=== PATIENT | male | born 1970 | race Caucasian/White ===

== ENCOUNTER 2016-11-08 12:50 | Inpatient (IN) | payer MEDICARE, OTHER ==
--- NOTE | 2016-11-08 14:23 | HP ---
Admission ROS [facility] Allergies/Adverse Reactions: Allergies Allergy/AdvReac Type Severity Reaction Status Date / Time fish derived Allergy Mild Rash Verified 06/09/16 12:26 Penicillins Allergy Mild Rash Verified 06/09/16 12:26 shellfish derived Allergy Mild Rash Verified 06/09/16 12:26 seafood Allergy Mild Rash Uncoded 06/09/16 12:26 - Ebola screening Have you traveled outside of the country in the last 21 days: No Have you had contact with anyone from an Ebola affected area: No Do you have a fever: No Patient History - Patient Medical History Hx Anemia: No Hx Asthma: No Hx Chronic Obstructive Pulmonary Disease (COPD): No Hx Cancer: No Hx Cardiac Disorders: No Hx Congestive Heart Failure: No Hx Hypertension: No Hx Hypercholesterolemia: No Hx Pacemaker: No HX Cerebrovascular Accident: No Hx Seizures: No Hx Dementia: No Hx Diabetes: No Hx Gastrointestinal Disorders: No Hx Liver Disease: Yes (Hep B ) Hx Genitourinary Disorders: No Hx Sexually Transmitted Disorders: No Hx Renal Disease (ESRD): No Hx Thyroid Disease: No Hx Human Immunodeficiency Virus (HIV): No (negative) Hx Hepatitis C: No (BUT HEP B; not on meds) Hx Depression: No (pt denies) Hx Suicide Attempt: No (denies) Hx Bipolar Disorder: No Hx Schizophrenia: No - Patient Surgical History Past Surgical History: Yes Hx Neurologic Surgery: No Hx Cataract Extraction: No Hx Cardiac Surgery: No Hx Lung Surgery: No Hx Breast Surgery: No Hx Breast Biopsy: No Hx Abdominal Surgery: No Hx Appendectomy: No Hx Cholecystectomy: No Hx Genitourinary Surgery: No Hx Section: No Hx Orthopedic Surgery: No Other Surgical History: FIVE CYSTS REMOVED FROM TESTICLE skin ,RIGHT ARM,RIGHT LEG, AND BACK Anesthesia Reaction: No - PPD History Date: 12/17/15 Results: 0 mm - Smoking Cessation Smoking history: Former smoker Have you smoked in the past 12 months: Yes Aproximately how many cigarettes per day: 40 If you are a former smoker, when did you quit?: 9 months ago Cigars Per Day: 20 Hx Chewing Tobacco Use: No Initiated information on smoking cessation: Yes 'Breaking Loose' booklet given: 11/08/16 Family Disease History - Family Disease History Family Disease History: Heart Disease: Father (COCAINE), Mother (ALCOHOLISM), [place] : Brother (COLON [place]), Sister (lung ), Other: Father, Mother Screened but not Admitted - Documentation of Visit Screened but not Admitted: Yes Level of Care Recommended at this Time: ER Evaluation/Care Additional Information/Explanation: patient stated he fell yesterday,stated he has severe pain in the left foot,. swellin gwith pain and tenderness left foot, metatarsal area. with tenderness on palpation,. history ofheroin and alcohol dependence. transfer to [facility] for evaluation and treatment by [facility],. spoke with dr mona alvarado [facility] Breath Alcohol Content Breath Alcohol Content: 0
--- NOTE | 2016-11-08 21:15 | HP ---
COWS - Scale Resting Pulse: 2= [place] 101-120 Sweatin=Flushed/Facial Moisture Restless Observation: 3= Extraneous Movement Pupil Size: 0= Normal to Room Light Bone or Joint Aches: 2= Severe Diffuse Aches (LEFT FOOT) Runny Nose/ Eye Tearin= Runny Nose/Eyes GI Upset > 30mins: 2= Nausea/Diarrhea Tremor Observation: 2= Slight Tremor Visible Yawning Observation: 1= 1-2x During Session Anxiety or Irritability: 2=Irritable/Anxious Goose Flesh Skin: 0=Smooth Skin COWS Score: 18 CIWA Score - CIWA Score Nausea/Vomitin Muscle Tremors: 3 Anxiety: 4-Mod. Anxious/Guarded Agitation: 4-Moderately Restless Paroxysmal Sweats: 3 Orientation: 2-Disoriented Date<2 days Tacttile Disturbances: 0-None Auditory Disturbances: 0-None Visual Disturbances: 0-None Headache: 0-None Present CIWA-Ar Total Score: 19 Admission ROS S - HPI Chief Complaint: WITHDRAWAL SYMPTOMS Allergies/Adverse Reactions: Allergies Allergy/AdvReac Type Severity Reaction Status Date / Time fish derived Allergy Mild Rash Verified 11/08/16 21:12 Penicillins Allergy Mild Rash Verified 11/08/16 21:12 shellfish derived Allergy Mild Rash Verified 11/08/16 21:12 seafood Allergy Mild Rash Uncoded 11/08/16 21:12 History of Present Illness: 46 Y.O. MAN WITH AN EXTENSIVE HISTORY OF DRUG AND ALCOHOL DEPENDENCE IS SEEKING DETOX. HE REPORTS NOT HAVING A SIGNIFICANT PERIOD OF SOBRIETY. HE HAS COMPLETED DETOX AND REHAB HERE PREVIOUSLY. PT. RETURNS FROM [facility] AFTER BEING EVALUATED AT THEIR ER FOR LEFT FOOT PAIN. Exam Limitations: No Limitations - Ebola screening Have you traveled outside of the country in the last 21 days: No Have you had contact with anyone from an Ebola affected area: No Have you been sick,other than usual withdrawal symptoms: No Do you have a fever: No - Review of Systems Constitutional: Fever, Loss of Appetite, Malaise, Night Sweats, Changes in sleep , Unintentional Wgt. Loss EENT: reports: Nose Congestion Respiratory: reports: Cough, Shortness of Breath Cardiac: reports: No Symptoms Reported (DENIES CHEST PAIN, PALPITATIONS, CHEST TIGHTNESS) GI: reports: Diarrhea, Nausea, Poor Appetite : reports: Frequency Musculoskeletal: reports: Muscle Weakness, Other (LEFT FOOT PAIN; EVALUATED AT [facility] ER.) Integumentary: reports: Other (PT. HAS SCABS TO THE LEFT SIDE AND BACK OF HIS HEAD. ALSO HAS AN ABRASION TO THE LEFT INDEX FINGER.) Neuro: reports: Tremors Endocrine: reports: No Symptoms Reported Hematology: reports: Anemia Psychiatric: reports: Anxious Other Systems: Reviewed and Negative Patient History - Patient Medical History Hx Anemia: No Hx Asthma: No Hx Chronic Obstructive Pulmonary Disease (COPD): Yes Hx Cancer: No Hx Cardiac Disorders: No Hx Congestive Heart Failure: No Hx Hypertension: No Hx Hypercholesterolemia: No Hx Pacemaker: No HX Cerebrovascular Accident: No Hx Seizures: No Hx Dementia: No Hx Diabetes: No Hx Gastrointestinal Disorders: Yes (HAS A COLOSTOMY BAG ) Hx Liver Disease: Yes (Hep B) Hx Genitourinary Disorders: No Hx Sexually Transmitted Disorders: No Hx Renal Disease (ESRD): No Hx Thyroid Disease: No Hx Human Immunodeficiency Virus (HIV): No (negative) Hx Hepatitis C: No (BUT HEP B; not on meds) Hx Depression: No (pt denies) Hx Suicide Attempt: No (denies) Hx Bipolar Disorder: No Hx Schizophrenia: No - Patient Surgical History Past Surgical History: Yes Hx Neurologic Surgery: No Hx Cataract Extraction: No Hx Cardiac Surgery: No Hx Lung Surgery: No Hx Breast Surgery: No Hx Breast Biopsy: No Hx Abdominal Surgery: Yes (GI DISORDER; COLOSTOMY-06/28/16) Hx Appendectomy: No Hx Cholecystectomy: No Hx Genitourinary Surgery: No Hx Section: No Hx Orthopedic Surgery: No Other Surgical History: FIVE CYSTS REMOVED FROM TESTICLE skin ,RIGHT ARM,RIGHT LEG, AND BACK Anesthesia Reaction: No - PPD History Previous Implant?: Yes Documented Results: Negative w/proof Implanted On Prior [facility] Admission?: Yes Date: 12/17/15 Results: 0 mm PPD to be Administered?: No - Reproductive History Patient is a Female of Child Bearing Age (11 -55 yrs old): No - Smoking Cessation Smoking history: Current every day smoker Have you smoked in the past 12 months: Yes Aproximately how many cigarettes per day: 20 Hx Chewing Tobacco Use: No Initiated information on smoking cessation: Yes 'Breaking Loose' booklet given: 11/08/16 - Substance & Tx. History Hx Alcohol Use: Yes Hx Substance Use: Yes Substance Use Type: Alcohol, Heroin Hx Substance Use Treatment: Yes (DETOX AND REHAB) - Substances Abused Alcohol Route: Oral Frequency: Daily Amount used: 1 PINT OF LIQUOR; 6 PACK OF BEER Age of first use: 34 Date of Last Use: 11/07/16 Heroin Route: Inhalation Frequency: Daily Amount used: 10-20 Age of first use: 34 Date of Last Use: 11/07/16 Family Disease History - Family Disease History Family Disease History: Heart Disease: Father (COCAINE), Mother (ALCOHOLISM), [place] : Brother (COLON [place]), Sister (lung ), Other: Father, Mother Admission Physical Exam [facility] - Vital Signs Vital Signs: Vital Signs - 24 hr 11/08/16 14:16 Temperature 97.5 F L Pulse Rate 122 H Respiratory 20 Rate Blood Pressure 158/98 - Physical General Appearance: Yes: Disheveled, Tremorous, Irritable, Sweating, Anxious HEENTM: Yes: Nasal Congestion Respiratory: Yes: Chest Non-Tender, Lungs Clear, Normal Breath Sounds, No Respiratory Distress, No Accessory Muscle Use Neck: Yes: No masses,lesions,Nodules, Trachea in good position Breast: Yes: Breast Exam Deferred Cardiology: Yes: S1, S2, Tachycardia Abdominal: Yes: Surgical Scar (MIDLINE ABDOMINAL), Other (COLOSTOMY) Genitourinary: Yes: Other (NO COMPLAINT REPORTED) Back: Yes: Normal Inspection Musculoskeletal: Yes: Other (TENDERNESS TO LEFT FOOT) Extremities: Yes: Tremors Neurological: Yes: Alert Integumentary: Yes: Diaphoresis, Other (WOUND TO LEFT INDEX FINGER-PRESCRIBED CLEOCIN IN THE ER. SCABS TO THE LEFT LATERAL AND BACKSIDE OF THE HEAD.) Lymphatic: Yes: Within Normal Limits - Diagnostic (1) Alcohol dependence with uncomplicated withdrawal Current Visit: Yes Status: Chronic (2) Opioid dependence with withdrawal Current Visit: Yes Status: Chronic (3) Nicotine dependence Current Visit: Yes Status: Chronic Qualifiers: Nicotine product type: cigarettes Substance use status: uncomplicated Qualified Code(s): F17.210 - Nicotine dependence, cigarettes, uncomplicated (4) Presence of colostomy Current Visit: Yes Status: Chronic Cleared for Admission [facility] - Detox or Rehab [facility] Level of Care: Medically Managed Detox Regimen/Protocol: Methadone/Librium S Breath Alcohol Content Breath Alcohol Content: 0 Urine Drug Screen - Results Drug Screen Negative: No Urine Drug Screen Results: THC-Marijuana, OPI-Opiates, OXY-Oxycodone
[2016-11-08 21:32] VITALS: BMI 24.5
[2016-11-08] MEDS ORDERED: METHADONE HCL 10 MG TABLET (FOR DETOX USE ONLY) PO ONE ×2 (21:43→23:00)
[2016-11-08] MEDS ORDERED: P-EPHED 60MG/TRIPROLIDI 2.5MG TABLET PO PRN (21:43)
[2016-11-08] MEDS ORDERED: chlordiazePOXIDE HCL 25 MG CAPSULE PO ONE (21:43)
[2016-11-08] MEDS ORDERED: MAGNESIUM HYDROX 2400MG/30ML ORAL SUSPENSION 30 ML CUP PO PRN (21:43)
[2016-11-08] MEDS ORDERED: NICOTINE POLACRILEX 2 MG GUM BC PRN (21:43)
[2016-11-08] MEDS ORDERED: MAG HYDROX/AL HYDROX/SIMETH 30 ML UNIT-DOSE CUP PO PRN (21:43)
[2016-11-08] MEDS ORDERED: MAGNESIUM CITRATE 300 ML BOTTLE PO PRN (21:43)
[2016-11-08] MEDS ORDERED: guaiFENesin/D-METHORPHAN HB 10 ML UNIT-DOSE CUPS PO PRN (21:43)
[2016-11-08] MEDS ORDERED: MENTHOL/PHENOL 1 EACH UD MM PRN (21:43)
[2016-11-08] MEDS ORDERED: chlordiazePOXIDE HCL 25 MG CAPSULE PO PRN (21:43)
[2016-11-08] MEDS ORDERED: ACETAMINOPHEN 325 MG TABLET (FP) PO PRN (21:43)
[2016-11-08] MEDS: THIAMINE HCL 100 MG TABLET (FP) PO SCH (22:24)
[2016-11-08] MEDS: cloNIDine HCL 0.1 MG TABLET PO PRN (22:24)
[2016-11-08] MEDS: BACITRACIN 0.9 GM PACKET TP SCH (22:24)
[2016-11-08] MEDS: diphenhydrAMINE HCL 50 MG CAPSULE PO PRN (22:25)
[2016-11-08] MEDS: chlordiazePOXIDE HCL 25 MG CAPSULE PO SCH (22:25)
[2016-11-09] MEDS: CLINDAMYCIN HCL 150 MG CAPSULE (FP) PO SCH ×4 (01:41→17:34)
[2016-11-09] MEDS: chlordiazePOXIDE HCL 25 MG CAPSULE PO SCH ×4 (06:53→22:34)
--- NOTE | 2016-11-09 09:39 | PN ---
S CIWA - CIWA Score Nausea/Vomitin Muscle Tremors: 3 Anxiety: 3 Agitation: 2 Paroxysmal Sweats: No Perspiration Orientation: 0-Oriented Tacttile Disturbances: 0-None Auditory Disturbances: 1-Very Mild Visual Disturbances: 1-Very Mild Sensitivity Headache: 2-Mild CIWA-Ar Total Score: 14 BHS COWS - Scale Resting Pulse: 1= [place] 81-100 Sweatin= Chills/Flushing Restless Observation: 1= Difficult to Sit Still Pupil Size: 2= Moderately Dilated Bone or Joint Aches: 2= Severe Diffuse Aches Runny Nose/ Eye Tearin= Runny Nose/Eyes GI Upset > 30mins: 1= Stomach Cramp Tremor Observation of Outstretched Hands: 2= Slight Tremor Visible Yawning Observation: 0= None Anxiety or Irritability: 2=Irritable/Anxious Goose Flesh Skin: 0=Smooth Skin COWS Score: 14 S Progress Note (SOAP) Objective: 11/09/16 09:38 Vital Signs - 24 hr 11/08/16 11/08/16 11/08/16 14:16 21:24 22:36 Temperature 97.5 F L 98.3 F 98.2 F Pulse Rate 122 H 118 H 82 Respiratory 20 20 18 Rate Blood Pressure 158/98 138/85 108/75 11/09/16 11/09/16 11/09/16 00:30 03:30 06:26 Temperature 97.2 F L Pulse Rate 94 H Respiratory 18 18 20 Rate Blood Pressure 132/79 labs pending Assessment: 11/09/16 09:38 ongoing withdrawal Plan: continue detox protocol
[2016-11-09] MEDS ORDERED: METHADONE HCL 10 MG TABLET (FOR DETOX USE ONLY) PO SCH (10:00)
[2016-11-09] MEDS: PRENATAL VITAMINS W/ FOLIC ACID TABLET (FP) PO SCH (10:20)
[2016-11-09] MEDS: BACITRACIN 0.9 GM PACKET TP SCH ×2 (10:20→22:32)
[2016-11-09] MEDS: NICOTINE 21 MG/24 HOURS TOPICAL PATCH TD SCH (10:20)
[2016-11-09 10:27] LABS: MCH 28.6 pg (25.7-33.7); MCHC 32.7 g/dl (32.0-35.9); MEAN CELL VOLUME 87.4 fl (80-96); MEAN PLT VOLUME 7.4 fl (7.5-11.1); PLATELET COUNT 348 K/MM3 (134-434); RDW 16.3 % (11.9-15.9); WHITE BLOOD COUNT 7.1 K/mm3 (4.0-10.0)
[2016-11-09 10:49] LABS: BILIRUBIN,TOTAL 0.3 mg/dL (0.2-1.0); CREATININE 1.4 mg/dL (0.7-1.3); TOT PROT 5.9 g/dl (6.4-8.2)
--- NOTE | 2016-11-09 11:01 | EKG ---
Test Reason : Blood Pressure : / mmHG Vent. Rate : 111 BPM Atrial Rate : 111 BPM P-R Int : 186 ms QRS Dur : 096 ms QT Int : 326 ms P-R-T Axes : 072 083 056 degrees QTc Int : 443 ms SINUS TACHYCARDIA POSSIBLE LEFT ATRIAL ENLARGEMENT NO PREVIOUS ECGS AVAILABLE Confirmed by CHEIKH STANFORD MD ([id number]) on 11/09/2016 11:01:23 AM Referred By: Tres Machado Confirmed By:CHEIKH STANFORD MD
--- NOTE | 2016-11-09 13:20 | CONSULT ---
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 Substance Abuse History: - Smoking Cessation. Smoking history: Current every day smoker. Have you smoked in the past 12 months: Yes. Aproximately how many cigarettes per day: 20. Hx Chewing Tobacco Use: No. Initiated information on smoking cessation: Yes. 'Breaking Loose' booklet given: 11/08/16. - Substance & Tx. History. Hx Alcohol Use: Yes. Hx Substance Use: Yes. Substance Use Type : Alcohol, Heroin. Hx Substance Use Treatment: Yes (DETOX AND REHAB). - Substances Abused. Alcohol. Route: Oral. Frequency: Daily. Amount used: 1 PINT OF LIQUOR; 6 PACK OF BEER. Age of first use: 34. Date of Last Use: 09/13. Heroin. Route: Inhalation. Frequency: Daily. Amount used: 10-20. Age of first use: 34. Date of Last Use: 11/07/16. Imported from [facility] database. Additional Comment: Patient is approached,at bedside,for psychiatric evaluation.Mr Saxena declined to have any conversation with staff." I am tired.Go away.I am catching on my sleep." Nurse Karen made an attempt to persuade the patient to cooperate for the psychiatric interview.He refused and reportedly dismissed the nurse.Consult cannot be performed because of absence of cooperation on the part of patient.In the meantime,he shows no clinical evidence of cognitive impairment,no signs of psychosis or lilian.Mr Saxena is observed resting comfortably in bed.Uneventful hospital course.
--- NOTE | 2016-11-09 21:54 | PN ---
[facility] Progress Note Note: CALLED TO SEE PT FOR LEAKING COLOSTOMY. PT OBSERVED LYING IN BED NAD RUQ ACTIVE COLOSTOMY NOTED. SURROUNDING TISSUE RED, ESCORIATED AND TENDER TO TOUCH AREA CLEANED COLOSTOMY DRESSING REAPPLIED WITH REINFORCEMENT CLIENT NEEDS A LARGER OSTOMY WAFER D/W NURSING CASHIER OFFICE TO F/U WILL CONTINUE TO MONITOR
[2016-11-09] MEDS: cloNIDine HCL 0.1 MG TABLET PO PRN (22:33)
[2016-11-09] MEDS: diphenhydrAMINE HCL 50 MG CAPSULE PO PRN (22:33)
[2016-11-09] MEDS: THIAMINE HCL 100 MG TABLET (FP) PO SCH (22:33)
[2016-11-10] MEDS: CLINDAMYCIN HCL 150 MG CAPSULE (FP) PO SCH ×5 (01:45→23:00)
[2016-11-10] MEDS: chlordiazePOXIDE HCL 25 MG CAPSULE PO SCH ×3 (07:18→17:53)
[2016-11-10] MEDS: LOPERAMIDE HCL 2 MG CAPSULE PO PRN ×3 (07:18→21:02)
[2016-11-10] MEDS: PRENATAL VITAMINS W/ FOLIC ACID TABLET (FP) PO SCH (10:25)
[2016-11-10] MEDS: BACITRACIN 0.9 GM PACKET TP SCH ×2 (10:25→22:03)
[2016-11-10] MEDS: NICOTINE 21 MG/24 HOURS TOPICAL PATCH TD SCH (10:25)
[2016-11-10] MEDS: METHADONE HCL 5 MG TABLET (FOR DETOX USE ONLY) PO SCH (10:25)
--- NOTE | 2016-11-10 12:53 | PN ---
[facility] CIWA - CIWA Score Nausea/Vomitin Muscle Tremors: 3 Anxiety: 3 Agitation: 3 Paroxysmal Sweats: 1-Minimal Palms Moist Orientation: 0-Oriented Tacttile Disturbances: 1-Very Mild Itch/Numbness Auditory Disturbances: 1-Very Mild Visual Disturbances: 1-Very Mild Sensitivity Headache: 2-Mild CIWA-Ar Total Score: 18 BHS COWS - Scale Resting Pulse: 2= [place] 101-120 Sweatin= Chills/Flushing Restless Observation: 3= Extraneous Movement Pupil Size: 1= Pupils >than Normal Bone or Joint Aches: 2= Severe Diffuse Aches Runny Nose/ Eye Tearin= Runny Nose/Eyes GI Upset > 30mins: 2= Nausea/Diarrhea Tremor Observation of Outstretched Hands: 2= Slight Tremor Visible Yawning Observation: 1= 1-2x During Session Anxiety or Irritability: 2=Irritable/Anxious Goose Flesh Skin: 0=Smooth Skin COWS Score: 18 S Progress Note (SOAP) Subjective: ALERT,IRRITABLE,ANXIOUS.INTERRUPTED SLEEP,TREMOR,PAIN IN THE BODY Objective: 11/10/16 13:12 Vital Signs Temperature 97.9 F 11/10/16 06:00 Pulse Rate 109 H 11/10/16 10:00 Respiratory Rate 18 11/10/16 10:00 Blood Pressure 118/85 11/10/16 10:00 O2 Sat by Pulse Oximetry (%) Laboratory Last Values WBC 7.1 K/mm3 (4.0-10.0) 11/09/16 07:00 RBC 3.78 M/mm3 (4.00-5.60) L D 11/09/16 07:00 Hgb 10.8 GM/dL (11.7-16.9) L D 11/09/16 07:00 Hct 33.0 % (35.4-49) L D 11/09/16 07:00 MCV 87.4 fl (80-96) 11/09/16 07:00 MCHC 32.7 g/dl (32.0-35.9) 11/09/16 07:00 RDW 16.3 % (11.9-15.9) H D 11/09/16 07:00 Plt Count 348 K/MM3 (134-434) D 11/09/16 07:00 MPV 7.4 fl (7.5-11.1) L D 11/09/16 07:00 Sodium 144 mmol/L (136-145) 11/09/16 07:00 Potassium 3.3 mmol/L (3.5-5.1) L D 11/09/16 07:00 Chloride 111 mmol/L (98-107) H 11/09/16 07:00 Carbon Dioxide 26 mmol/L (21-32) 11/09/16 07:00 Anion Gap 7 (8-16) L 11/09/16 07:00 BUN 10 mg/dL (7-18) D 11/09/16 07:00 Creatinine 1.4 mg/dL (0.7-1.3) H D 11/09/16 07:00 Creat Clearance w eGFR 54.09 (>60) 11/09/16 07:00 Random Glucose 106 mg/dL (74-106) 11/09/16 07:00 Calcium 9.0 mg/dL (8.5-10.1) 11/09/16 07:00 Total Bilirubin 0.3 mg/dL (0.2-1.0) D 11/09/16 07:00 AST 39 U/L (15-37) H D 11/09/16 07:00 ALT 46 U/L (12-78) D 11/09/16 07:00 Alkaline Phosphatase 92 U/L (45-117) D 11/09/16 07:00 Total Protein 5.9 g/dl (6.4-8.2) L 11/09/16 07:00 Albumin 3.0 g/dl (3.4-5.0) L 11/09/16 07:00 RPR Titer Nonreactive (NONREACTIVE) 11/09/16 07:00 11/10/16 13:14 Assessment: 11/10/16 13:15 WITHDRAWAL SYMPTOM Plan: CONTINUE DETOX,K DUR REPLACEMENT K IS 3.3
[2016-11-10] MEDS ORDERED: POTASSIUM CHLORIDE TABS 20 MEQ TABLET.ER (FP) PO ONE (13:16)
[2016-11-10] MEDS: hydrOXYzine PAMOATE 50 MG CAPSULE (FP) PO PRN ×2 (15:53→21:03)
[2016-11-10] MEDS: cloNIDine HCL 0.1 MG TABLET PO PRN (21:02)
[2016-11-10] MEDS: THIAMINE HCL 100 MG TABLET (FP) PO SCH (21:03)
[2016-11-10] MEDS: POTASSIUM CHLORIDE TABS 20 MEQ TABLET.ER (FP) PO SCH (21:03)
[2016-11-10] MEDS: chlordiazePOXIDE 5 MG CAPSULE PO SCH (22:04)
[2016-11-11] MEDS: CLINDAMYCIN HCL 150 MG CAPSULE (FP) PO SCH ×4 (06:46→23:02)
[2016-11-11] MEDS: chlordiazePOXIDE 5 MG CAPSULE PO SCH ×3 (06:46→17:48)
[2016-11-11] MEDS: cloNIDine HCL 0.1 MG TABLET PO PRN ×2 (11:06→21:27)
[2016-11-11] MEDS: BACITRACIN 0.9 GM PACKET TP SCH ×2 (11:06→21:25)
[2016-11-11] MEDS: METHADONE HCL 5 MG TABLET (FOR DETOX USE ONLY) PO SCH (11:08)
[2016-11-11] MEDS: POTASSIUM CHLORIDE TABS 20 MEQ TABLET.ER (FP) PO SCH ×2 (11:08→21:27)
[2016-11-11] MEDS: NICOTINE 21 MG/24 HOURS TOPICAL PATCH TD SCH (11:09)
[2016-11-11] MEDS: hydrOXYzine PAMOATE 50 MG CAPSULE (FP) PO PRN ×2 (11:09→17:54)
[2016-11-11] MEDS: PRENATAL VITAMINS W/ FOLIC ACID TABLET (FP) PO SCH (11:09)
[2016-11-11] MEDS: IBUPROFEN 400 MG TABLET (FP) PO PRN ×2 (11:09→21:31)
[2016-11-11] MEDS: LOPERAMIDE HCL 2 MG CAPSULE PO PRN ×2 (11:11→17:51)
--- NOTE | 2016-11-11 13:04 | PN ---
[facility] Progress Note (SOAP) Subjective: ALERT,IRRITABLE,ANXIOUS,INTERRUPTED SLEEP,PAIN IN THE BODY AND BACK Objective: 11/11/16 13:02 Vital Signs Temperature 97.0 F L 11/11/16 10:00 Pulse Rate 114 H 11/11/16 10:00 Respiratory Rate 20 11/11/16 10:00 Blood Pressure 122/85 11/11/16 10:00 O2 Sat by Pulse Oximetry (%) Laboratory Last Values WBC 7.1 K/mm3 (4.0-10.0) 11/09/16 07:00 RBC 3.78 M/mm3 (4.00-5.60) L D 11/09/16 07:00 Hgb 10.8 GM/dL (11.7-16.9) L D 11/09/16 07:00 Hct 33.0 % (35.4-49) L D 11/09/16 07:00 MCV 87.4 fl (80-96) 11/09/16 07:00 MCHC 32.7 g/dl (32.0-35.9) 11/09/16 07:00 RDW 16.3 % (11.9-15.9) H D 11/09/16 07:00 Plt Count 348 K/MM3 (134-434) D 11/09/16 07:00 MPV 7.4 fl (7.5-11.1) L D 11/09/16 07:00 Sodium 144 mmol/L (136-145) 11/09/16 07:00 Potassium 3.3 mmol/L (3.5-5.1) L D 11/09/16 07:00 Chloride 111 mmol/L (98-107) H 11/09/16 07:00 Carbon Dioxide 26 mmol/L (21-32) 11/09/16 07:00 Anion Gap 7 (8-16) L 11/09/16 07:00 BUN 10 mg/dL (7-18) D 11/09/16 07:00 Creatinine 1.4 mg/dL (0.7-1.3) H D 11/09/16 07:00 Creat Clearance w eGFR 54.09 (>60) 11/09/16 07:00 Random Glucose 106 mg/dL (74-106) 11/09/16 07:00 Calcium 9.0 mg/dL (8.5-10.1) 11/09/16 07:00 Total Bilirubin 0.3 mg/dL (0.2-1.0) D 11/09/16 07:00 AST 39 U/L (15-37) H D 11/09/16 07:00 ALT 46 U/L (12-78) D 11/09/16 07:00 Alkaline Phosphatase 92 U/L (45-117) D 11/09/16 07:00 Total Protein 5.9 g/dl (6.4-8.2) L 11/09/16 07:00 Albumin 3.0 g/dl (3.4-5.0) L 11/09/16 07:00 RPR Titer Nonreactive (NONREACTIVE) 11/09/16 07:00 Assessment: 11/11/16 13:03 WITHDRAWAL SYMPTOM Plan: CONTINUE DETOX
[2016-11-11] MEDS: diphenhydrAMINE HCL 50 MG CAPSULE PO PRN (21:31)
[2016-11-11] MEDS: chlordiazePOXIDE HCL 10 MG CAPSULE PO SCH (22:44)
[2016-11-11] MEDS: THIAMINE HCL 100 MG TABLET (FP) PO SCH (23:01)
[2016-11-12] MEDS: chlordiazePOXIDE HCL 10 MG CAPSULE PO SCH ×3 (06:57→18:18)
[2016-11-12] MEDS: CLINDAMYCIN HCL 150 MG CAPSULE (FP) PO SCH ×3 (06:58→18:18)
[2016-11-12] MEDS ORDERED: METHADONE HCL 10 MG TABLET (FOR DETOX USE ONLY) PO SCH (10:00)
[2016-11-12] MEDS: POTASSIUM CHLORIDE TABS 20 MEQ TABLET.ER (FP) PO SCH ×2 (10:09→23:02)
[2016-11-12] MEDS: PRENATAL VITAMINS W/ FOLIC ACID TABLET (FP) PO SCH (10:09)
[2016-11-12] MEDS: NICOTINE 21 MG/24 HOURS TOPICAL PATCH TD SCH (10:09)
[2016-11-12] MEDS: BACITRACIN 0.9 GM PACKET TP SCH ×2 (10:09→23:02)
--- NOTE | 2016-11-12 12:34 | PN ---
S Progress Note (SOAP) Subjective: ALERT,IRRITABLE,ANXIOUS,INTERRUPTED SLEEP Objective: 11/12/16 12:33 Vital Signs Temperature 97.9 F 11/12/16 09:59 Pulse Rate 99 H 11/12/16 09:59 Respiratory Rate 18 11/12/16 09:59 Blood Pressure 104/81 11/12/16 09:59 O2 Sat by Pulse Oximetry (%) Assessment: 11/12/16 12:34 WITHDRAWAL SYMPTOM Plan: CONTINUE DETOX
[2016-11-12] MEDS: THIAMINE HCL 100 MG TABLET (FP) PO SCH (23:02)
[2016-11-13] MEDS ORDERED: METHADONE HCL 5 MG TABLET (FOR DETOX USE ONLY) PO SCH (06:00)
[2016-11-13] MEDS: CLINDAMYCIN HCL 150 MG CAPSULE (FP) PO SCH (07:00)
[2016-11-13 10:14] VITALS: BP 117/83; PULSE 114; TEMP 98.8
--- NOTE | 2016-11-13 10:22 | DS ---
[facility] Detox Discharge Summary Admission Date: 11/08/16 Discharge Date: 11/13/16 - History Present History: Alcohol Dependence, Cocaine Dependence, Opioid Dependence - Physical Exam Results Vital Signs: Vital Signs Temperature 98.8 F 11/13/16 10:14 Pulse Rate 114 H 11/13/16 10:14 Respiratory Rate 20 11/13/16 10:14 Blood Pressure 117/83 11/13/16 10:14 O2 Sat by Pulse Oximetry (%) - Treatment Hospital Course: Detox Protocol Followed, Detoxed Safely, Responded well, Discharged Condition Good - Medication Discharge Medications: Ambulatory Orders NK [No Known Home Medication] 08/01/14 - Diagnosis (1) Alcohol dependence with uncomplicated withdrawal Current Visit: Yes Status: Chronic (2) Nicotine dependence Current Visit: Yes Status: Chronic Qualifiers: Nicotine product type: cigarettes Substance use status: uncomplicated Qualified Code(s): F17.210 - Nicotine dependence, cigarettes, uncomplicated (3) Opioid dependence with withdrawal Current Visit: Yes Status: Chronic (4) Presence of colostomy Current Visit: Yes Status: Chronic (5) Cocaine abuse Current Visit: No Status: Chronic (6) Paranoid schizophrenia Current Visit: Yes Status: Chronic - AMA Did Patient Leave Against Medical Advice: No
[2016-11-13] MEDS: POTASSIUM CHLORIDE TABS 20 MEQ TABLET.ER (FP) PO SCH (10:40)
[2016-11-13] MEDS: BACITRACIN 0.9 GM PACKET TP SCH (10:40)
[2016-11-13] MEDS: PRENATAL VITAMINS W/ FOLIC ACID TABLET (FP) PO SCH (10:40)
[2016-11-13] MEDS: NICOTINE 21 MG/24 HOURS TOPICAL PATCH TD SCH (10:41)
== END 2016-11-13 11:02 | disposition home or self-care (01) | DRG 897 ==
LOC: YASAS 12:50 → Y6N 21:29
PROVIDERS: ADMIT Internal Medicine; ATTEND Internal Medicine
PROC: HZ2ZZZZ Detoxification Services for Substance Abuse Treatment (ICD-10-PCS; principal; 2016-11-08)
DX: F11.23 Opioid dependence with withdrawal (principal); F20.0 Paranoid schizophrenia; B18.1 Chronic viral hepatitis B without delta-agent; F10.230 Alcohol dependence with withdrawal, uncomplicated; F14.10 Cocaine abuse, uncomplicated; J44.9 Chronic obstructive pulmonary disease, unspecified; R00.0 Tachycardia, unspecified; Z93.3 Colostomy status
CPT/HCPCS: 36415; 80053; 85027; 86593; 93005; 93010

== ENCOUNTER 2017-03-23 17:22 | Inpatient (IN) | payer OTHER ==
--- NOTE | 2017-03-23 18:39 | HP ---
COWS - Scale Resting Pulse: 1= [place] 81-100 Sweatin=Flushed/Facial Moisture Restless Observation: 3= Extraneous Movement Pupil Size: 1= Pupils >than Normal Bone or Joint Aches: 2= Severe Diffuse Aches Runny Nose/ Eye Tearin= Runny Nose/Eyes GI Upset > 30mins: 3= Vomiting/Diarrhea Tremor Observation: 2= Slight Tremor Visible Yawning Observation: 1= 1-2x During Session Anxiety or Irritability: 2=Irritable/Anxious Goose Flesh Skin: 3=Piloerection COWS Score: 22 CIWA Score - CIWA Score Nausea/Vomitin Muscle Tremors: 3 Anxiety: 3 Agitation: 3 Paroxysmal Sweats: 3 Orientation: 1-Uncertain about Date Tacttile Disturbances: 2-Mild Itch/Numbness/Burn Auditory Disturbances: 1-Very Mild Visual Disturbances: 1-Very Mild Sensitivity Headache: 2-Mild CIWA-Ar Total Score: 22 Admission ROS BHS - HPI Chief Complaint: I'm withdrawing, I need help Allergies/Adverse Reactions: Allergies Allergy/AdvReac Type Severity Reaction Status Date / Time fish derived Allergy Mild Rash Verified 11/08/16 21:12 Penicillins Allergy Mild Rash Verified 11/08/16 21:12 shellfish derived Allergy Mild Rash Verified 11/08/16 21:12 seafood Allergy Mild Rash Uncoded 11/08/16 21:12 History of Present Illness: 46 y/o male brought in by ambulance following presentation to the ED at [facility] for drug and alcohol intoxication. He was observed without pharmacologic intervention. Exam Limitations: No Limitations - Ebola screening Have you traveled outside of the country in the last 21 days: No Have you had contact with anyone from an Ebola affected area: No Have you been sick,other than usual withdrawal symptoms: No Do you have a fever: No - Review of Systems Constitutional: Chills, Diaphoresis EENT: reports: Nose Congestion Respiratory: reports: No Symptoms reported Cardiac: reports: Lightheadedness GI: reports: Diarrhea, Poor Appetite, Vomiting : reports: No Symptoms Reported Musculoskeletal: reports: Back Pain, Joint Pain, Muscle Weakness Integumentary: reports: Flushing, Sweating Neuro: reports: Headache, Tremors Endocrine: reports: No Symptoms Reported Hematology: reports: No Symptoms Reported Psychiatric: reports: Anxious Other Systems: Reviewed and Negative Patient History - Patient Medical History Hx Anemia: No Hx Asthma: No Hx Chronic Obstructive Pulmonary Disease (COPD): No Hx Cancer: No Hx Cardiac Disorders: No Hx Congestive Heart Failure: No Hx Hypertension: No Hx Hypercholesterolemia: No Hx Pacemaker: No HX Cerebrovascular Accident: No Hx Seizures: No Hx Dementia: No Hx Diabetes: No Hx Gastrointestinal Disorders: Yes (h/o cysts r/t heroin use) Hx Liver Disease: Yes (Hep B) Hx Genitourinary Disorders: No Hx Sexually Transmitted Disorders: No Hx Renal Disease (ESRD): No Hx Thyroid Disease: No Hx Human Immunodeficiency Virus (HIV): No Hx Hepatitis C: No Hx Depression: No Hx Suicide Attempt: No Hx Bipolar Disorder: No Hx Schizophrenia: No - Patient Surgical History Past Surgical History: Yes Hx Neurologic Surgery: No Hx Cataract Extraction: No Hx Cardiac Surgery: No Hx Lung Surgery: No Hx Breast Surgery: No Hx Breast Biopsy: No Hx Abdominal Surgery: Yes (s/p cysts removal, s/p colostomy) Hx Appendectomy: No Hx Cholecystectomy: No Hx Genitourinary Surgery: No Hx Section: No Hx Orthopedic Surgery: No Other Surgical History: cysts removal Anesthesia Reaction: No - PPD History Previous Implant?: Yes Documented Results: Negative w/proof Implanted On Prior [facility] Admission?: Yes Date: 12/17/15 Results: 0 mm PPD to be Administered?: Yes - Smoking Cessation Smoking history: Current every day smoker Have you smoked in the past 12 months: Yes Aproximately how many cigarettes per day: 20 Cigars Per Day: 20 Hx Chewing Tobacco Use: No Initiated information on smoking cessation: Yes 'Breaking Loose' booklet given: 03/23/17 - Substance & Tx. History Hx Alcohol Use: Yes (vodka) Hx Substance Use: Yes Substance Use Type: Alcohol, Cocaine, Opiates - Substances Abused Alcohol Route: Oral Frequency: Daily Amount used: 2 pints Age of first use: 23 Date of Last Use: 03/22/17 Cocaine Route: Inhalation Frequency: Daily Amount used: $20 Age of first use: 19 Date of Last Use: 03/22/17 Heroin Route: Inhalation Frequency: Daily Amount used: 3-4 bags Age of first use: 34 Date of Last Use: 03/22/17 Family Disease History - Family Disease History Family Disease History: Heart Disease: Father (cocaine), Mother (alcoholism), CA : Brother (colon), Sister (lung ), Other: Father, Mother Admission Physical Exam S - Physical General Appearance: Yes: Disheveled, Mild Distress HEENTM: Yes: EOMI, Hearing grossly Normal, Normal ENT Inspection, Normal Voice, Nasal Congestion, Other (well healed scars on the scalp) Respiratory: Yes: Lungs Clear, Normal Breath Sounds, No Respiratory Distress, No Accessory Muscle Use Neck: Yes: No masses,lesions,Nodules, Supple Breast: Yes: Breast Exam Deferred Cardiology: Yes: Regular Rhythm, Regular Rate, S1, S2, Tachycardia Abdominal: Yes: Normal Bowel Sounds, Soft, Surgical Scar, Other (colostomy present) Genitourinary: Yes: Within Normal Limits Back: Yes: Normal Inspection Musculoskeletal: Yes: Back pain, Muscle Pain, Muscle weakness, Other (slight limb) Extremities: Yes: Normal Range of Motion, Non-Tender, Tremors Neurological: Yes: health care marketing specialist II-XII NML intact, Alert, Normal Response Integumentary: Yes: Clammy, Diaphoresis Lymphatic: Yes: Within Normal Limits - Diagnostic (1) Alcohol dependence with uncomplicated withdrawal Current Visit: Yes Status: Acute (2) Nicotine dependence Current Visit: Yes Status: Acute Qualifiers: Nicotine product type: cigarettes Substance use status: uncomplicated Qualified Code(s): F17.210 - Nicotine dependence, cigarettes, uncomplicated (3) Opioid dependence with withdrawal Current Visit: Yes Status: Acute (4) Substance induced mood disorder Current Visit: Yes Status: Acute Cleared for Admission [facility] - Detox or Rehab Detox Regimen/Protocol: Methadone/Librium S Breath Alcohol Content Breath Alcohol Content: 0 Vital Signs - Vital Signs Vital Signs Refused: No Temperature: 97 F Temperature Source: Oral Pulse Rate: 92 Respiratory Rate: 17 Blood Pressure: 115/79 BP Location: Left Arm Blood Pressure Position: Sitting - Height Height: 5 ft 11 in - Weight Weight: 149 lb Weight Measurement Method: Standing Scale Body Mass Index (BMI): 20.7 - Bowel Function Bowel Movement: Yes (colostomy) Urine Drug Screen - Test Device Lot Number: [id number] Expiration Date: 11/27/18 - Control Is Test Valid: Yes - Results Drug Screen Negative: No Urine Drug Screen Results: JUNO-Cocaine, OPI-Opiates, BZO-Benzodiazepines
[2017-03-23] MEDS ORDERED: NICOTINE POLACRILEX 2 MG GUM BUC PRN (18:53)
[2017-03-23] MEDS ORDERED: MAG HYDROX/AL HYDROX/SIMETH 30 ML UNIT-DOSE CUP PO PRN (18:53)
[2017-03-23] MEDS ORDERED: P-EPHED 60MG/TRIPROLIDI 2.5MG TABLET PO PRN (18:53)
[2017-03-23] MEDS ORDERED: LOPERAMIDE HCL 2 MG CAPSULE PO PRN (18:53)
[2017-03-23] MEDS ORDERED: MAGNESIUM HYDROX 2400MG/30ML ORAL SUSPENSION 30 ML CUP PO PRN (18:53)
[2017-03-23] MEDS ORDERED: MENTHOL/PHENOL 1 EACH UD MM PRN (18:53)
[2017-03-23] MEDS ORDERED: IBUPROFEN 400 MG TABLET (FP) PO PRN (18:53)
[2017-03-23] MEDS ORDERED: chlordiazePOXIDE HCL 25 MG CAPSULE PO ONE (18:53)
[2017-03-23] MEDS ORDERED: METHADONE HCL 10 MG TABLET (FOR DETOX USE ONLY) PO ONE ×2 (18:53→23:00)
[2017-03-23] MEDS ORDERED: MAGNESIUM CITRATE 300 ML BOTTLE PO PRN (18:53)
[2017-03-23] MEDS ORDERED: guaiFENesin/D-METHORPHAN HB 10 ML UNIT-DOSE CUPS PO PRN (18:53)
[2017-03-23 19:08] VITALS: BMI 20.7
[2017-03-23] MEDS ORDERED: METHADONE HCL 10 MG TABLET (FOR DETOX USE ONLY) ONE (21:32)
[2017-03-23] MEDS: chlordiazePOXIDE HCL 25 MG CAPSULE PO SCH (22:00)
[2017-03-23] MEDS: THIAMINE HCL 100 MG TABLET (FP) PO SCH (22:01)
[2017-03-23] MEDS: diphenhydrAMINE HCL 50 MG CAPSULE PO PRN (22:01)
[2017-03-23] MEDS: NICOTINE 14 MG/24 HOURS TOPICAL PATCH TD SCH (23:23)
[2017-03-24] MEDS: diphenhydrAMINE HCL 50 MG CAPSULE PO PRN ×2 (02:17→22:09)
[2017-03-24] MEDS: ACETAMINOPHEN 325 MG TABLET (FP) PO PRN (03:16)
[2017-03-24] MEDS: hydrOXYzine PAMOATE 50 MG CAPSULE (FP) PO PRN (03:52)
[2017-03-24] MEDS: chlordiazePOXIDE HCL 25 MG CAPSULE PO PRN ×2 (03:52→19:26)
[2017-03-24] MEDS: chlordiazePOXIDE HCL 25 MG CAPSULE PO SCH ×4 (04:59→22:09)
[2017-03-24 09:32] LABS: MCH 28.5 pg (25.7-33.7); MCHC 34.2 g/dl (32.0-35.9); MEAN CELL VOLUME 83.5 fl (80-96); MEAN PLT VOLUME 7.6 fl (7.5-11.1); PLATELET COUNT 242 K/MM3 (134-434); RDW 13.8 % (11.9-15.9); WHITE BLOOD COUNT 9.7 K/mm3 (4.0-10.0)
[2017-03-24 09:38] LABS: ALBUMIN 3.3 g/dl (3.4-5.0); CALCIUM 9.2 mg/dL (8.5-10.1); COCKROFT - GAULT 66.42; CREATININE 1.3 mg/dL (0.7-1.3)
[2017-03-24 09:40] LABS: BILIRUBIN,TOTAL 0.4 mg/dL (0.2-1.0); TOT PROT 5.9 g/dl (6.4-8.2)
[2017-03-24] MEDS ORDERED: METHADONE HCL 10 MG TABLET (FOR DETOX USE ONLY) PO SCH (10:00)
[2017-03-24] MEDS: PRENATAL VITAMINS W/ FOLIC ACID TABLET (FP) PO SCH (10:35)
[2017-03-24] MEDS: NICOTINE 14 MG/24 HOURS TOPICAL PATCH TD SCH (10:35)
--- NOTE | 2017-03-24 14:35 | PN ---
[facility] CIWA - CIWA Score Nausea/Vomitin-No Nausea/No Vomiting Muscle Tremors: 3 Anxiety: 4-Mod. Anxious/Guarded Agitation: 4-Moderately Restless Paroxysmal Sweats: 3 Orientation: 0-Oriented Tacttile Disturbances: 0-None Auditory Disturbances: 0-None Visual Disturbances: 0-None Headache: 0-None Present CIWA-Ar Total Score: 14 BHS COWS - Scale Resting Pulse: 1= [place] 81-100 Sweatin=Flushed/Facial Moisture Restless Observation: 1= Difficult to Sit Still Pupil Size: 0= Normal to Room Light Bone or Joint Aches: 2= Severe Diffuse Aches Runny Nose/ Eye Tearin= Runny Nose/Eyes GI Upset > 30mins: 2= Nausea/Diarrhea Tremor Observation of Outstretched Hands: 2= Slight Tremor Visible Yawning Observation: 1= 1-2x During Session Anxiety or Irritability: 2=Irritable/Anxious Goose Flesh Skin: 0=Smooth Skin COWS Score: 15 S Progress Note (SOAP) Subjective: anxiety,tremors,sweating,interrupted sleep,restless. Objective: 03/24/17 14:33 Vital Signs - 8 hr 03/24/17 03/24/17 03/24/17 07:34 11:16 13:50 Temperature 97.5 F L 98.3 F 97.7 F Pulse Rate 92 H 89 92 H Respiratory 18 20 18 Rate Blood Pressure 130/73 117/78 115/66 Laboratory Results - last 24 hr 03/24/17 03/24/17 03/24/17 06:20 06:20 06:20 WBC 9.7 D RBC 4.24 Hgb 12.1 D Hct 35.4 MCV 83.5 MCHC 34.2 RDW 13.8 D Plt Count 242 D MPV 7.6 Sodium 138 Potassium 4.2 D Chloride 109 H Carbon Dioxide 17 L D Anion Gap 12 BUN 41 H D Creatinine 1.3 Creat Clearance w eGFR 58.92 Random Glucose 131 H D Calcium 9.2 Total Bilirubin 0.4 D AST 13 L D ALT 30 D Alkaline Phosphatase 110 Total Protein 5.9 L Albumin 3.3 L RPR Titer Nonreactive labs noted Assessment: 03/24/17 14:34 Withdrawal sx. Plan: Continue detox
[2017-03-24 18:17] LABS: URINE APPEARANCE CLEAR; URINE BILIRUBIN NEGATIVE (NEGATIVE); URINE BLOOD NEGATIVE (NEGATIVE); URINE COLOR LTYELLOW; URINE GLUCOSE (UA) NEGATIVE (NEGATIVE); URINE KETONE NEGATIVE (NEGATIVE); URINE LEUK ESTERASE NEGATIVE (NEGATIVE); URINE NITRITE NEGATIVE (NEGATIVE); URINE PROTEIN NEGATIVE (NEGATIVE); URINE UROBILINOGEN NEGATIVE E.U./dl (0.2-1.0)
[2017-03-24] MEDS: THIAMINE HCL 100 MG TABLET (FP) PO SCH (22:09)
[2017-03-25] MEDS: diphenhydrAMINE HCL 50 MG CAPSULE PO PRN ×2 (01:47→22:28)
[2017-03-25] MEDS: chlordiazePOXIDE HCL 25 MG CAPSULE PO PRN ×2 (01:47→12:31)
[2017-03-25] MEDS: chlordiazePOXIDE HCL 25 MG CAPSULE PO SCH ×3 (05:45→17:41)
[2017-03-25] MEDS: PRENATAL VITAMINS W/ FOLIC ACID TABLET (FP) PO SCH (10:20)
[2017-03-25] MEDS: METHADONE HCL 5 MG TABLET (FOR DETOX USE ONLY) PO SCH (10:21)
[2017-03-25] MEDS: NICOTINE 14 MG/24 HOURS TOPICAL PATCH TD SCH (10:21)
--- NOTE | 2017-03-25 11:18 | EKG ---
Test Reason : Blood Pressure : / mmHG Vent. Rate : 085 BPM Atrial Rate : 085 BPM P-R Int : 208 ms QRS Dur : 106 ms QT Int : 370 ms P-R-T Axes : 058 089 072 degrees QTc Int : 440 ms NORMAL SINUS RHYTHM WITH 1ST DEGREE A-V BLOCK ST ELEVATION, CONSIDER EARLY REPOLARIZATION, PERICARDITIS, OR INJURY ABNORMAL ECG WHEN COMPARED WITH ECG OF 08-NOV-2016 21:59, ST MORE ELEVATED IN INFERIOR LEADS Confirmed by ERNESTINE LOWE MD ([id number]) on 03/25/2017 11:17:35 AM Referred By: Confirmed By:ERNESTINE LOWE MD
[2017-03-25] MEDS ORDERED: ONDANSETRON *ODT* 4 MG TABLET SL PRN (11:39)
--- NOTE | 2017-03-25 11:42 | CONSULT ---
[facility] Psychiatric Consult - Data Date of interview: 03/25/17 Admission source: [facility] Identifying data: This is 46 years old male with no psychiatric hospitalization history iontoxicated with: Alcohol, Heroin, Cocaine, Nicotine Substance Abuse History: Smoking history: Current every day smoker. Have you smoked in the past 12 months: Yes. Aproximately how many cigarettes per day: 20. Cigars Per Day: 20. Hx Chewing Tobacco Use: No. Initiated information on smoking cessation: Yes. 'Breaking Loose' booklet given: 03/23/17. - Substance & Tx. History. Hx Alcohol Use: Yes (vodka). Hx Substance Use: Yes. Substance Use Type: Alcohol, Cocaine, Opiates. - Substances Abused. Alcohol. Route: Oral. Frequency: Daily. Amount used: 2 pints. Age of first use: 23. Date of Last Use: 03/22/17. Cocaine. Route: Inhalation. Frequency: Daily. Amount used: $20. Age of first use: 19. Date of Last Use: 03/22/17. Heroin. Route: Inhalation. Frequency: Daily. Amount used: 3-4 bags. Age of first use : 34. Date of Last Use: 03/22/17 Medical History: Denies Psychiatric History: Denies. As per computyer bthere is a history of Schizophrenia, patient denies hiostory of Schgizophrenia Physical/Sexual Abuse/Trauma History: Denies Additional Comment: Observation. Detox Unit Care Protocol Mental Status Exam - Mental Status Exam Alert and Oriented to: Person Cognitive Function: Fair Patient Appearance: Unkempt Mood: Sad Affect: Flat Patient Behavior: Sedated Speech Pattern: Delayed Voice Loudness: Mildly Soft/Quiet Thought Process: Circumstantial Thought Disorder: Being Controlled Hallucinations: Denies Suicidal Ideation: Denies Homicidal Ideation: Denies Insight/Judgement: Fair Sleep: Difficulty falling asleep Appetite: Fair Muscle strength/Tone: Normal Gait/Station: Shuffling Additional Comments: Observation. Detox Unit Care Protocol Psychiatric Findings - Problem List ([place] 1, 2,3) (1) Alcohol dependence with uncomplicated withdrawal Current Visit: Yes Status: Acute (2) Nicotine dependence Current Visit: Yes Status: Acute Qualifiers: Nicotine product type: cigarettes Substance use status: uncomplicated Qualified Code(s): F17.210 - Nicotine dependence, cigarettes, uncomplicated (3) Opioid dependence with withdrawal Current Visit: Yes Status: Acute (4) Substance induced mood disorder Current Visit: Yes Status: Acute (5) Cocaine abuse Current Visit: No Status: Chronic (6) Paranoid schizophrenia Current Visit: No Status: Suspected - Initial Treatment Plan Initial Treatment Plan: Observation. Detox Unit Care Protocol
[2017-03-25] MEDS: FLUoxetine HCL 20 MG CAPSULE (FP) PO SCH (12:31)
[2017-03-25] MEDS: ACETAMINOPHEN 325 MG TABLET (FP) PO PRN (13:16)
--- NOTE | 2017-03-25 16:36 | PN ---
S CIWA - CIWA Score Nausea/Vomitin Muscle Tremors: 3 Anxiety: 4-Mod. Anxious/Guarded Agitation: 3 Paroxysmal Sweats: 4-Forehead w/Sweat Beads Orientation: 0-Oriented Tacttile Disturbances: 3-Moderate Itch/Numb/Burn Auditory Disturbances: 2-Mild Harshness/Frighten Visual Disturbances: 0-None Headache: 0-None Present CIWA-Ar Total Score: 22 BHS COWS - Scale Resting Pulse: 2= [place] 101-120 Sweatin= Chills/Flushing Restless Observation: 1= Difficult to Sit Still Pupil Size: 0= Normal to Room Light Bone or Joint Aches: 2= Severe Diffuse Aches Runny Nose/ Eye Tearin= Runny Nose/Eyes GI Upset > 30mins: 2= Nausea/Diarrhea Tremor Observation of Outstretched Hands: 2= Slight Tremor Visible Yawning Observation: 1= 1-2x During Session Anxiety or Irritability: 2=Irritable/Anxious Goose Flesh Skin: 0=Smooth Skin COWS Score: 15 [facility] Progress Note (SOAP) Subjective: Nausea, Stomach Cramping, H/A, Body Aches, Sweating, Interrupted Sleep, Tremors. Objective: PT. A & O X 3, OBSERVED AMBULATING ON UNIT. NO ACUTE DISTRESS. 03/25/17 16:34 Vital Signs Temperature 96.8 F L 03/25/17 15:48 Pulse Rate 86 03/25/17 15:48 Respiratory Rate 18 03/25/17 15:48 Blood Pressure 113/69 03/25/17 15:48 O2 Sat by Pulse Oximetry (%) Laboratory Tests 03/24/17 03/24/17 03/24/17 06:20 06:20 06:20 WBC 9.7 D RBC 4.24 Hgb 12.1 D Hct 35.4 MCV 83.5 MCHC 34.2 RDW 13.8 D Plt Count 242 D MPV 7.6 Sodium 138 Potassium 4.2 D Chloride 109 H Carbon Dioxide 17 L D Anion Gap 12 BUN 41 H D Creatinine 1.3 Creat Clearance w eGFR 58.92 Random Glucose 131 H D Calcium 9.2 Total Bilirubin 0.4 D AST 13 L D ALT 30 D Alkaline Phosphatase 110 Total Protein 5.9 L Albumin 3.3 L Urine Color Urine Appearance Urine pH Ur Specific [place] Urine Protein Urine Glucose (UA) Urine Ketones Urine Blood Urine Nitrite Urine Bilirubin Urine Urobilinogen Ur Leukocyte Esterase RPR Titer Nonreactive 03/24/17 18:01 WBC RBC Hgb Hct MCV MCHC RDW Plt Count MPV Sodium Potassium Chloride Carbon Dioxide Anion Gap BUN Creatinine Creat Clearance w eGFR Random Glucose Calcium Total Bilirubin AST ALT Alkaline Phosphatase Total Protein Albumin Urine Color Ltyellow Urine Appearance Clear Urine pH 6.0 Ur Specific [place] 1.015 Urine Protein Negative Urine Glucose (UA) Negative Urine Ketones Negative Urine Blood Negative Urine Nitrite Negative Urine Bilirubin Negative Urine Urobilinogen Negative Ur Leukocyte Esterase Negative RPR Titer LABS NOTED. Assessment: 03/25/17 16:34 WITHDRAWAL SYMPTOMS. Plan: CONTINUE DETOX. REPEAT BUN TOMORROW AM FOR ELEVATED ADMISSION BUN. BGM ACBK TOMORROW FOR ELEVATED ADMISSION RANDOM GLUCOSE LEVEL.
[2017-03-25] MEDS: chlordiazePOXIDE 5 MG CAPSULE PO SCH (22:26)
[2017-03-25] MEDS: THIAMINE HCL 100 MG TABLET (FP) PO SCH (22:26)
[2017-03-25] MEDS: traZODone HCL 100 MG TABLET (FP) PO SCH (22:26)
[2017-03-26] MEDS: chlordiazePOXIDE 5 MG CAPSULE PO SCH ×3 (06:54→17:05)
[2017-03-26] MEDS: NICOTINE 14 MG/24 HOURS TOPICAL PATCH TD SCH (10:08)
[2017-03-26] MEDS: PRENATAL VITAMINS W/ FOLIC ACID TABLET (FP) PO SCH (10:08)
[2017-03-26] MEDS: METHADONE HCL 5 MG TABLET (FOR DETOX USE ONLY) PO SCH (10:08)
[2017-03-26] MEDS: FLUoxetine HCL 20 MG CAPSULE (FP) PO SCH (10:08)
--- NOTE | 2017-03-26 10:43 | PN ---
B[facility] Progress Note (SOAP) Subjective: irritable agitation sweats Objective: 03/26/17 10:41 Vital Signs Temperature 97.9 F 03/26/17 09:50 Pulse Rate 90 03/26/17 09:50 Respiratory Rate 18 03/26/17 09:50 Blood Pressure 111/70 03/26/17 09:50 O2 Sat by Pulse Oximetry (%) Laboratory Tests 03/24/17 03/24/17 03/24/17 06:20 06:20 06:20 WBC 9.7 D RBC 4.24 Hgb 12.1 D Hct 35.4 MCV 83.5 MCHC 34.2 RDW 13.8 D Plt Count 242 D MPV 7.6 Sodium 138 Potassium 4.2 D Chloride 109 H Carbon Dioxide 17 L D Anion Gap 12 BUN 41 H D Creatinine 1.3 Creat Clearance w eGFR 58.92 Random Glucose 131 H D Calcium 9.2 Total Bilirubin 0.4 D AST 13 L D ALT 30 D Alkaline Phosphatase 110 Total Protein 5.9 L Albumin 3.3 L Urine Color Urine Appearance Urine pH Ur Specific [place] Urine Protein Urine Glucose (UA) Urine Ketones Urine Blood Urine Nitrite Urine Bilirubin Urine Urobilinogen Ur Leukocyte Esterase RPR Titer Nonreactive 03/24/17 18:01 WBC RBC Hgb Hct MCV MCHC RDW Plt Count MPV Sodium Potassium Chloride Carbon Dioxide Anion Gap BUN Creatinine Creat Clearance w eGFR Random Glucose Calcium Total Bilirubin AST ALT Alkaline Phosphatase Total Protein Albumin Urine Color Ltyellow Urine Appearance Clear Urine pH 6.0 Ur Specific [place] 1.015 Urine Protein Negative Urine Glucose (UA) Negative Urine Ketones Negative Urine Blood Negative Urine Nitrite Negative Urine Bilirubin Negative Urine Urobilinogen Negative Ur Leukocyte Esterase Negative RPR Titer repeated labs pending awake/alert ambulating no acute distress Assessment: 03/26/17 10:42 withdrawal sx Plan: continue detox increase fluids f/u pending labs
[2017-03-26] MEDS: chlordiazePOXIDE HCL 10 MG CAPSULE PO SCH (22:27)
[2017-03-26] MEDS: traZODone HCL 100 MG TABLET (FP) PO SCH (22:27)
[2017-03-26] MEDS: diphenhydrAMINE HCL 50 MG CAPSULE PO PRN (22:27)
[2017-03-26] MEDS: THIAMINE HCL 100 MG TABLET (FP) PO SCH (22:27)
[2017-03-27] MEDS: chlordiazePOXIDE HCL 10 MG CAPSULE PO SCH ×3 (08:20→17:17)
[2017-03-27] MEDS ORDERED: METHADONE HCL 10 MG TABLET (FOR DETOX USE ONLY) PO SCH (10:00)
--- NOTE | 2017-03-27 10:02 | PN ---
BHS Progress Note (SOAP) Subjective: interrupted sleep, sweats , Objective: 03/27/17 10:00 Vital Signs Temperature 98.1 F 03/26/17 21:54 Pulse Rate 83 03/26/17 21:54 Respiratory Rate 18 03/27/17 03:30 Blood Pressure 105/61 03/26/17 21:54 O2 Sat by Pulse Oximetry (%) Laboratory Tests 03/24/17 03/24/17 03/24/17 06:20 06:20 06:20 WBC 9.7 D RBC 4.24 Hgb 12.1 D Hct 35.4 MCV 83.5 MCHC 34.2 RDW 13.8 D Plt Count 242 D MPV 7.6 Sodium 138 Potassium 4.2 D Chloride 109 H Carbon Dioxide 17 L D Anion Gap 12 BUN 41 H D Creatinine 1.3 Creat Clearance w eGFR 58.92 Random Glucose 131 H D Calcium 9.2 Total Bilirubin 0.4 D AST 13 L D ALT 30 D Alkaline Phosphatase 110 Total Protein 5.9 L Albumin 3.3 L Urine Color Urine Appearance Urine pH Ur Specific [place] Urine Protein Urine Glucose (UA) Urine Ketones Urine Blood Urine Nitrite Urine Bilirubin Urine Urobilinogen Ur Leukocyte Esterase RPR Titer Nonreactive 03/24/17 03/26/17 18:01 09:00 WBC RBC Hgb Hct MCV MCHC RDW Plt Count MPV Sodium Potassium Chloride Carbon Dioxide Anion Gap BUN 34 H Creatinine Creat Clearance w eGFR Random Glucose Calcium Total Bilirubin AST ALT Alkaline Phosphatase Total Protein Albumin Urine Color Ltyellow Urine Appearance Clear Urine pH 6.0 Ur Specific [place] 1.015 Urine Protein Negative Urine Glucose (UA) Negative Urine Ketones Negative Urine Blood Negative Urine Nitrite Negative Urine Bilirubin Negative Urine Urobilinogen Negative Ur Leukocyte Esterase Negative RPR Titer 03/27/17 10:40 pt aox3 in nad ambulating abd -colostomy in place Assessment: 03/27/17 10:01 withdrawal sx's elevated creatinine , bun improved 03/27/17 10:01 Plan: cont. detox increase fluids
[2017-03-27] MEDS: PRENATAL VITAMINS W/ FOLIC ACID TABLET (FP) PO SCH (10:42)
[2017-03-27] MEDS: FLUoxetine HCL 20 MG CAPSULE (FP) PO SCH (10:42)
[2017-03-27] MEDS: NICOTINE 14 MG/24 HOURS TOPICAL PATCH TD SCH (10:43)
[2017-03-27] MEDS: traZODone HCL 100 MG TABLET (FP) PO SCH (22:13)
[2017-03-27] MEDS: hydrOXYzine PAMOATE 50 MG CAPSULE (FP) PO PRN (22:13)
[2017-03-27] MEDS: THIAMINE HCL 100 MG TABLET (FP) PO SCH (22:13)
[2017-03-28] MEDS ORDERED: METHADONE HCL 5 MG TABLET (FOR DETOX USE ONLY) PO SCH (06:00)
--- NOTE | 2017-03-28 08:36 | DS ---
[facility] Detox Discharge Summary Admission Date: 03/23/17 Discharge Date: 03/28/17 - History Present History: Alcohol Dependence, Cocaine Dependence, Opioid Dependence - Physical Exam Results Vital Signs: Vital Signs Temperature 97.3 F L 03/28/17 06:29 Pulse Rate 70 03/28/17 06:29 Respiratory Rate 16 03/28/17 06:29 Blood Pressure 101/62 03/28/17 06:29 O2 Sat by Pulse Oximetry (%) - Treatment Hospital Course: Detox Protocol Followed, Detoxed Safely, Responded well, Discharged Condition Good, Rehab Referral Accepted - Medication Discharge Medications: Ambulatory Orders Fluoxetine HCl [Prozac -] 20 mg PO DAILY #30 cap 03/25/17 Trazodone HCl [Desyrel -] 100 mg PO HS #30 tablet 03/25/17 - Diagnosis (1) Alcohol dependence with uncomplicated withdrawal Current Visit: Yes Status: Chronic (2) Nicotine dependence Current Visit: Yes Status: Chronic Qualifiers: Nicotine product type: cigarettes Substance use status: uncomplicated Qualified Code(s): F17.210 - Nicotine dependence, cigarettes, uncomplicated (3) Opioid dependence with withdrawal Current Visit: Yes Status: Chronic (4) Substance induced mood disorder Current Visit: Yes Status: Acute (5) Cocaine abuse Current Visit: No Status: Chronic (6) Presence of colostomy Current Visit: No Status: Chronic (7) Paranoid schizophrenia Current Visit: No Status: Suspected - AMA Did Patient Leave Against Medical Advice: No (rehab 5N)
[2017-03-28 09:56] VITALS: BP 96/66; PULSE 85; TEMP 97.1
[2017-03-28] MEDS: PRENATAL VITAMINS W/ FOLIC ACID TABLET (FP) PO SCH (10:35)
[2017-03-28] MEDS: FLUoxetine HCL 20 MG CAPSULE (FP) PO SCH (10:35)
[2017-03-28] MEDS: NICOTINE 14 MG/24 HOURS TOPICAL PATCH TD SCH (10:36)
== END 2017-03-28 12:23 | disposition home or self-care (01) | DRG 897 ==
LOC: YASAS 17:22 → Y6N 20:41
PROVIDERS: ADMIT Internal Medicine; ATTEND Internal Medicine
PROC: HZ2ZZZZ Detoxification Services for Substance Abuse Treatment (ICD-10-PCS; principal; 2017-03-28)
DX: F19.230 Other psychoactive substance dependence with withdrawal, uncomplicated (principal); F20.0 Paranoid schizophrenia; F11.23 Opioid dependence with withdrawal; F10.230 Alcohol dependence with withdrawal, uncomplicated; F17.210 Nicotine dependence, cigarettes, uncomplicated; F14.10 Cocaine abuse, uncomplicated; F19.24 Other psychoactive substance dependence with psychoactive substance-induced mood disorder; Z93.3 Colostomy status
CPT/HCPCS: 36415; 80053; 81003; 84520; 85027; 86593; 93005; 93010

== ENCOUNTER 2017-06-08 15:07 | Inpatient (IN) | payer OTHER ==
[2017-06-08 16:33] VITALS: BMI 20.9
[2017-06-08] MEDS ORDERED: IBUPROFEN 400 MG TABLET (FP) PO PRN (17:52)
[2017-06-08] MEDS ORDERED: MAGNESIUM HYDROX 2400MG/30ML ORAL SUSPENSION 30 ML CUP PO PRN (17:52)
[2017-06-08] MEDS ORDERED: MAG HYDROX/AL HYDROX/SIMETH 30 ML UNIT-DOSE CUP PO PRN (17:52)
[2017-06-08] MEDS ORDERED: MENTHOL/PHENOL 1 EACH UD MM PRN (17:52)
[2017-06-08] MEDS ORDERED: MAGNESIUM CITRATE 300 ML BOTTLE PO PRN (17:52)
[2017-06-08] MEDS ORDERED: guaiFENesin/D-METHORPHAN HB 10 ML UNIT-DOSE CUPS PO PRN (17:52)
[2017-06-08] MEDS ORDERED: hydrOXYzine PAMOATE 50 MG CAPSULE (FP) PO PRN (17:52)
[2017-06-08] MEDS ORDERED: LOPERAMIDE HCL 2 MG CAPSULE PO PRN (17:52)
[2017-06-08] MEDS ORDERED: ACETAMINOPHEN 325 MG TABLET (FP) PO PRN (17:52)
[2017-06-08] MEDS ORDERED: NICOTINE POLACRILEX 2 MG GUM BC PRN (17:52)
[2017-06-08] MEDS ORDERED: diphenhydrAMINE HCL 50 MG CAPSULE PO PRN (17:52)
[2017-06-08] MEDS ORDERED: chlordiazePOXIDE HCL 25 MG CAPSULE PO PRN (17:52)
[2017-06-08] MEDS ORDERED: P-EPHED 60MG/TRIPROLIDI 2.5MG TABLET PO PRN (17:52)
[2017-06-08] MEDS ORDERED: chlordiazePOXIDE HCL 25 MG CAPSULE PO ONE (17:52)
[2017-06-08] MEDS ORDERED: METHADONE HCL 10 MG TABLET (FOR DETOX USE ONLY) PO ONE ×2 (17:52→23:00)
--- NOTE | 2017-06-08 18:01 | HP ---
COWS - Scale Resting Pulse: 2= CO 101-120 Sweatin=Flushed/Facial Moisture Restless Observation: 1= Difficult to Sit Still Pupil Size: 2= Moderately Dilated Bone or Joint Aches: 2= Severe Diffuse Aches Runny Nose/ Eye Tearin= Runny Nose/Eyes GI Upset > 30mins: 2= Nausea/Diarrhea Tremor Observation: 2= Slight Tremor Visible Yawning Observation: 1= 1-2x During Session Anxiety or Irritability: 2=Irritable/Anxious Goose Flesh Skin: 0=Smooth Skin COWS Score: 18 CIWA Score - CIWA Score Nausea/Vomitin Muscle Tremors: 4-Moderate,w/Arms Extend Anxiety: 4-Mod. Anxious/Guarded Agitation: 4-Moderately Restless Paroxysmal Sweats: 3 Orientation: 1-Uncertain about Date Tacttile Disturbances: 0-None Auditory Disturbances: 0-None Visual Disturbances: 0-None Headache: 0-None Present CIWA-Ar Total Score: 19 Admission ROS BHS - HPI Chief Complaint: Withdrawal Sx. Allergies/Adverse Reactions: Allergies Allergy/AdvReac Type Severity Reaction Status Date / Time fish derived Allergy Mild Rash Verified 06/08/17 17:41 Penicillins Allergy Mild Rash Verified 06/08/17 17:41 shellfish derived Allergy Mild Rash Verified 06/08/17 17:41 seafood Allergy Mild Rash Uncoded 06/08/17 17:41 History of Present Illness: 47 y/o man with a long hx. of Heroin & Alcohol dependence is admitted for detox. Pt. has been in previous detox, reports 2 1/2 yrs sobriety. Exam Limitations: No Limitations - Ebola screening Have you traveled outside of the country in the last 21 days: No Have you had contact with anyone from an Ebola affected area: No Have you been sick,other than usual withdrawal symptoms: No Do you have a fever: No - Review of Systems Constitutional: Diaphoresis EENT: reports: No Symptoms Reported Respiratory: reports: No Symptoms reported Cardiac: reports: No Symptoms Reported GI: reports: Diarrhea, Nausea, Abdominal cramping : reports: No Symptoms Reported Musculoskeletal: reports: Back Pain, Joint Pain Integumentary: reports: Sweating Neuro: reports: Tremors Endocrine: reports: No Symptoms Reported Hematology: reports: No Symptoms Reported Psychiatric: reports: No Sypmtoms Reported Other Systems: Reviewed and Negative Patient History - Patient Medical History Hx Anemia: No Hx Asthma: No Hx Chronic Obstructive Pulmonary Disease (COPD): No Hx Cancer: No Hx Cardiac Disorders: No Hx Congestive Heart Failure: No Hx Hypertension: No Hx Hypercholesterolemia: No Hx Pacemaker: No HX Cerebrovascular Accident: No Hx Seizures: No Hx Dementia: No Hx Diabetes: No Hx Gastrointestinal Disorders: Yes (pt has colostomy) Hx Liver Disease: Yes (Hep B) Hx Genitourinary Disorders: No Hx Sexually Transmitted Disorders: No Hx Renal Disease (ESRD): No Hx Thyroid Disease: No Hx Human Immunodeficiency Virus (HIV): No Hx Hepatitis C: No Hx Depression: No Hx Suicide Attempt: No Hx Bipolar Disorder: No Hx Schizophrenia: No - Patient Surgical History Past Surgical History: Yes Hx Neurologic Surgery: No Hx Cataract Extraction: No Hx Cardiac Surgery: No Hx Lung Surgery: No Hx Breast Surgery: No Hx Breast Biopsy: No Hx Abdominal Surgery: Yes (s/p cysts removal, s/p colostomy) Hx Appendectomy: No Hx Cholecystectomy: No Hx Genitourinary Surgery: No Hx Section: No Hx Orthopedic Surgery: No Other Surgical History: cysts removal Anesthesia Reaction: No - PPD History Date: 03/25/17 Results: 0 mm PPD to be Administered?: No - Smoking Cessation Smoking history: Current every day smoker Aproximately how many cigarettes per day: 20 Cigars Per Day: 20 Hx Chewing Tobacco Use: No Initiated information on smoking cessation: Yes 'Breaking Loose' booklet given: 06/08/17 - Substance & Tx. History Hx Alcohol Use: Yes Hx Substance Use: Yes Substance Use Type: Alcohol, Heroin Hx Substance Use Treatment: Yes (Detox last at [facility] in February 2017) - Substances Abused Alcohol Route: Oral Frequency: Daily Amount used: Vodka 2 pints Age of first use: 19 Date of Last Use: 06/07/17 Heroin Route: Inhalation Frequency: Daily Amount used: 15-20 bags Age of first use: 34 Date of Last Use: 06/08/17 Family Disease History - Family Disease History Family Disease History: Heart Disease: Father (cocaine), Mother (alcoholism), CA : Brother (colon), Sister (lung ), Other: Father, Mother Admission Physical Exam BHS - Vital Signs Vital Signs: Vital Signs - 24 hr 06/08/17 16:29 Temperature 98.0 F Pulse Rate 106 H Respiratory 18 Rate Blood Pressure 139/81 - Physical General Appearance: Yes: Tremorous, Irritable, Sweating, Anxious HEENTM: Yes: Nasal Congestion, Rhinorrhea Respiratory: Yes: Chest Non-Tender, Lungs Clear, Normal Breath Sounds Neck: Yes: Supple Breast: Yes: Breast Exam Deferred Cardiology: Yes: Regular Rhythm, Regular Rate, S1, S2 Abdominal: Yes: Normal Bowel Sounds, Non Tender, Flat, Soft, Surgical Scar ( Colostomy bag in place RUQ) Genitourinary: Yes: Within Normal Limits Back: Yes: Within Normal Limits Musculoskeletal: Yes: Within Normal Limits Extremities: Yes: Tremors Neurological: Yes: Fully Oriented, Alert Integumentary: Yes: Diaphoresis Lymphatic: Yes: Within Normal Limits - Diagnostic (1) Alcohol dependence with uncomplicated withdrawal Current Visit: No Status: Chronic (2) Nicotine dependence Current Visit: No Status: Chronic Qualifiers: Nicotine product type: cigarettes Substance use status: uncomplicated Qualified Code(s): F17.210 - Nicotine dependence, cigarettes, uncomplicated (3) Opioid dependence with withdrawal Current Visit: No Status: Chronic (4) Presence of colostomy Current Visit: Yes Status: Chronic Cleared for Admission [facility] - Detox or Rehab [facility] Level of Care: Medically Managed Detox Regimen/Protocol: Methadone/Librium [facility] Breath Alcohol Content Breath Alcohol Content: 0 Urine Drug Screen - Results Drug Screen Negative: No Urine Drug Screen Results: OPI-Opiates
[2017-06-08] MEDS: NICOTINE 21 MG/24 HOURS TOPICAL PATCH TD SCH (19:24)
[2017-06-08] MEDS: chlordiazePOXIDE HCL 25 MG CAPSULE PO SCH (22:58)
[2017-06-08] MEDS: THIAMINE HCL 100 MG TABLET (FP) PO SCH (22:58)
[2017-06-09] MEDS: chlordiazePOXIDE HCL 25 MG CAPSULE PO SCH ×4 (06:20→22:18)
[2017-06-09] MEDS ORDERED: METHADONE HCL 10 MG TABLET (FOR DETOX USE ONLY) PO SCH (10:00)
[2017-06-09 10:34] LABS: ANION GAP 10 (8-16); BILIRUBIN,TOTAL 0.3 mg/dL (0.2-1.0); CO2 24 mmol/L (21-32); GLUCOSE,RANDOM 110 mg/dL (74-106); SGOT/AST 35 U/L (15-37); SGPT/ALT 44 U/L (12-78); TOT PROT 5.9 g/dl (6.4-8.2)
[2017-06-09 10:35] LABS: ALK PHOS 86 U/L (45-117); CREATININE 1.4 mg/dL (0.7-1.3)
[2017-06-09] MEDS: PRENATAL VITAMINS W/ FOLIC ACID TABLET (FP) PO SCH (10:39)
[2017-06-09] MEDS: NICOTINE 21 MG/24 HOURS TOPICAL PATCH TD SCH (10:40)
[2017-06-09 10:47] LABS: MCH 28.7 pg (25.7-33.7); MCHC 33.2 g/dl (32.0-35.9); MEAN CELL VOLUME 86.4 fl (80-96); MEAN PLT VOLUME 7.8 fl (7.5-11.1); PLATELET COUNT 283 K/MM3 (134-434); RDW 14.3 % (11.9-15.9); WHITE BLOOD COUNT 6.5 K/mm3 (4.0-10.0)
[2017-06-09 11:53] LABS: URINE APPEARANCE CLEAR; URINE BILIRUBIN NEGATIVE (NEGATIVE); URINE BLOOD 1+ (NEGATIVE); URINE COLOR LT. YELLOW; URINE GLUCOSE (UA) NEGATIVE (NEGATIVE); URINE KETONE NEGATIVE (NEGATIVE); URINE LEUK ESTERASE NEGATIVE (NEGATIVE); URINE NITRITE NEGATIVE (NEGATIVE); URINE PROTEIN NEGATIVE (NEGATIVE); URINE UROBILINOGEN 0.2 mg/dL (0.2-1.0)
[2017-06-09 12:05] LABS: URINE BACTERIA MODERATE /hpf (NONE SEEN); URINE RBC 1 /hpf (0-3); URINE WBC 2 /hpf (3-5)
--- NOTE | 2017-06-09 13:54 | EKG ---
Test Reason : Blood Pressure : / mmHG Vent. Rate : 092 BPM Atrial Rate : 092 BPM P-R Int : 210 ms QRS Dur : 096 ms QT Int : 382 ms P-R-T Axes : 075 091 072 degrees QTc Int : 472 ms SINUS RHYTHM WITH 1ST DEGREE A-V BLOCK RIGHTWARD AXIS BORDERLINE ECG WHEN COMPARED WITH ECG OF 23-MAR-2017 20:17, T WAVE INVERSION NO LONGER EVIDENT IN ANTERIOR LEADS CLINICAL CORRELATION IS RECOMMENDED Confirmed by MAKENNA CALI, MAURI ([id number]) on 06/09/2017 1:54:52 PM Referred By: Confirmed By:MAURI MENSAH MD
--- NOTE | 2017-06-09 14:38 | PN ---
S CIWA - CIWA Score Nausea/Vomitin Muscle Tremors: 4-Moderate,w/Arms Extend Anxiety: 4-Mod. Anxious/Guarded Agitation: 4-Moderately Restless Paroxysmal Sweats: 3 Orientation: 0-Oriented Tacttile Disturbances: 1-Very Mild Itch/Numbness Auditory Disturbances: 0-None Visual Disturbances: 0-None Headache: 3-Moderate CIWA-Ar Total Score: 22 BHS COWS - Scale Resting Pulse: 1= [place] 81-100 Sweatin=Flushed/Facial Moisture Restless Observation: 3= Extraneous Movement Pupil Size: 1= Pupils >than Normal Bone or Joint Aches: 2= Severe Diffuse Aches Runny Nose/ Eye Tearin= Runny Nose/Eyes GI Upset > 30mins: 3= Vomiting/Diarrhea Tremor Observation of Outstretched Hands: 2= Slight Tremor Visible Yawning Observation: 1= 1-2x During Session Anxiety or Irritability: 2=Irritable/Anxious Goose Flesh Skin: 0=Smooth Skin COWS Score: 19 S Progress Note (SOAP) Subjective: Sweating, chills, tremor, back pain, diarrhea Objective: 06/09/17 14:35 Last Vital Signs Temp Pulse Resp BP Pulse Ox 98.8 F 99 H 18 106/69 06/09/17 13:52 06/09/17 13:52 06/09/17 13:52 06/09/17 13:52 Laboratory Tests 06/09/17 06/09/17 06/09/17 08:00 08:00 08:00 WBC 6.5 D RBC 3.73 L Hgb 10.7 L D Hct 32.3 L MCV 86.4 MCH 28.7 MCHC 33.2 RDW 14.3 Plt Count 283 MPV 7.8 Sodium 141 Potassium 4.0 Chloride 107 Carbon Dioxide 24 D Anion Gap 10 BUN 25 H D Creatinine 1.4 H Creat Clearance w eGFR 53.86 Random Glucose 110 H Calcium 9.0 Total Bilirubin 0.3 D AST 35 D ALT 44 D Alkaline Phosphatase 86 D Total Protein 5.9 L Albumin 3.0 L Urine Color Urine Appearance Urine pH Urine Protein Urine Glucose (UA) Urine Ketones Urine Blood Urine Nitrite Urine Bilirubin Urine Urobilinogen Ur Leukocyte Esterase Urine RBC Urine WBC Urine Bacteria RPR Titer Nonreactive 06/09/17 09:20 WBC RBC Hgb Hct MCV MCH MCHC RDW Plt Count MPV Sodium Potassium Chloride Carbon Dioxide Anion Gap BUN Creatinine Creat Clearance w eGFR Random Glucose Calcium Total Bilirubin AST ALT Alkaline Phosphatase Total Protein Albumin Urine Color Lt. yellow Urine Appearance Clear Urine pH 6.0 Urine Protein Negative Urine Glucose (UA) Negative Urine Ketones Negative Urine Blood 1+ H Urine Nitrite Negative Urine Bilirubin Negative Urine Urobilinogen 0.2 Ur Leukocyte Esterase Negative Urine RBC 1 Urine WBC 2 Urine Bacteria Moderate RPR Titer Labs noted: abnormal UA; serum creatinine 1.4, bun 25 Assessment: 06/09/17 14:36 Withdrawal symptoms Noted with prerenal azotemia Plan: Continue detox Abnormal UA: UA and urine culture already ordered, follow up on result Prerenal azotemia: encouraged to drink lots of water (water pitcher ordered), repeat BMP in AM
[2017-06-09] MEDS: THIAMINE HCL 100 MG TABLET (FP) PO SCH (22:18)
[2017-06-10] MEDS: chlordiazePOXIDE HCL 25 MG CAPSULE PO SCH ×3 (05:18→17:46)
[2017-06-10] MEDS: METHADONE HCL 5 MG TABLET (FOR DETOX USE ONLY) PO SCH (10:31)
[2017-06-10] MEDS: PRENATAL VITAMINS W/ FOLIC ACID TABLET (FP) PO SCH (10:31)
--- NOTE | 2017-06-10 11:05 | PN ---
[facility] CIWA - CIWA Score Nausea/Vomitin Muscle Tremors: 2 Anxiety: 4-Mod. Anxious/Guarded Agitation: 1-Slight > Activity Paroxysmal Sweats: 3 Orientation: 0-Oriented Tacttile Disturbances: 3-Moderate Itch/Numb/Burn Auditory Disturbances: 0-None Visual Disturbances: 1-Very Mild Sensitivity Headache: 0-None Present CIWA-Ar Total Score: 17 BHS COWS - Scale Resting Pulse: 1= SD 81-100 Sweatin= Chills/Flushing Restless Observation: 0= Sits Still Pupil Size: 0= Normal to Room Light Bone or Joint Aches: 2= Severe Diffuse Aches Runny Nose/ Eye Tearin= Runny Nose/Eyes GI Upset > 30mins: 2= Nausea/Diarrhea Tremor Observation of Outstretched Hands: 1= Tremor [place], Not Seen Yawning Observation: 1= 1-2x During Session Anxiety or Irritability: 2=Irritable/Anxious Goose Flesh Skin: 3=Piloerection COWS Score: 15 S Progress Note (SOAP) Subjective: Nausea, Interrupted sleep, Body Aches, Sweating. Objective: PT. A & O X 3, OBSERVED AMBULATING ON UNIT. NO ACUTE DISTRESS. 06/10/17 11:02 Vital Signs Temperature 98.1 F 06/10/17 09:42 Pulse Rate 91 H 06/10/17 09:42 Respiratory Rate 18 06/10/17 09:42 Blood Pressure 109/75 06/10/17 09:42 O2 Sat by Pulse Oximetry (%) Laboratory Tests 06/09/17 06/09/17 06/09/17 08:00 08:00 08:00 WBC 6.5 D RBC 3.73 L Hgb 10.7 L D Hct 32.3 L MCV 86.4 MCH 28.7 MCHC 33.2 RDW 14.3 Plt Count 283 MPV 7.8 Sodium 141 Potassium 4.0 Chloride 107 Carbon Dioxide 24 D Anion Gap 10 BUN 25 H D Creatinine 1.4 H Creat Clearance w eGFR 53.86 Random Glucose 110 H Calcium 9.0 Total Bilirubin 0.3 D AST 35 D ALT 44 D Alkaline Phosphatase 86 D Total Protein 5.9 L Albumin 3.0 L Urine Color Urine Appearance Urine pH Ur Specific [place] Urine Protein Urine Glucose (UA) Urine Ketones Urine Blood Urine Nitrite Urine Bilirubin Urine Urobilinogen Ur Leukocyte Esterase Urine RBC Urine WBC Urine Bacteria RPR Titer Nonreactive 06/09/17 09:20 WBC RBC Hgb Hct MCV MCH MCHC RDW Plt Count MPV Sodium Potassium Chloride Carbon Dioxide Anion Gap BUN Creatinine Creat Clearance w eGFR Random Glucose Calcium Total Bilirubin AST ALT Alkaline Phosphatase Total Protein Albumin Urine Color Lt. yellow Urine Appearance Clear Urine pH 6.0 Ur Specific [place] <= 1.005 Urine Protein Negative Urine Glucose (UA) Negative Urine Ketones Negative Urine Blood 1+ H Urine Nitrite Negative Urine Bilirubin Negative Urine Urobilinogen 0.2 Ur Leukocyte Esterase Negative Urine RBC 1 Urine WBC 2 Urine Bacteria Moderate RPR Titer LABS NOTED. Assessment: 06/10/17 11:03 WITHDRAWAL SYMPTOMS. Plan: CONTINUE DETOX. D/C MAGNESIUM-CONTAINING MEDS. DUE TO ABNORMAL RENAL LAB VALUES. FEOSOL, 325 MG PO BID WITH MEALS.
[2017-06-10] MEDS ORDERED: ONDANSETRON *ODT* 4 MG TABLET SL PRN (11:09)
--- NOTE | 2017-06-10 11:17 | CONSULT ---
[facility] Psychiatric Consult - Data Date of interview: 06/10/17 Admission source: [facility] Identifying data: Three visits at bedside by this dairy nutrition consultant.Patient approached for psychiatric evaluation.Mr Saxena refused.Nursing staff is made aware.
[2017-06-10] MEDS: NICOTINE 21 MG/24 HOURS TOPICAL PATCH TD SCH (11:24)
[2017-06-10] MEDS: FERROUS SO4 325 MG TABLET (FP) PO SCH (17:46)
[2017-06-10] MEDS: THIAMINE HCL 100 MG TABLET (FP) PO SCH (22:16)
[2017-06-10] MEDS: chlordiazePOXIDE 5 MG CAPSULE PO SCH (22:16)
[2017-06-11] MEDS: chlordiazePOXIDE 5 MG CAPSULE PO SCH ×3 (05:26→17:04)
[2017-06-11] MEDS: FERROUS SO4 325 MG TABLET (FP) PO SCH ×2 (07:07→17:04)
[2017-06-11] MEDS: PRENATAL VITAMINS W/ FOLIC ACID TABLET (FP) PO SCH (10:14)
[2017-06-11] MEDS: METHADONE HCL 5 MG TABLET (FOR DETOX USE ONLY) PO SCH (10:14)
[2017-06-11] MEDS: NICOTINE 21 MG/24 HOURS TOPICAL PATCH TD SCH (10:15)
--- NOTE | 2017-06-11 11:33 | PN ---
S Progress Note (SOAP) Subjective: C/O DIARRHEA,HOT/COLD FLASHES,BACK PAIN. Objective: 06/11/17 11:31 Vital Signs Temperature 98.2 F 06/11/17 09:48 Pulse Rate 90 06/11/17 09:48 Respiratory Rate 18 06/11/17 09:48 Blood Pressure 100/69 06/11/17 09:48 O2 Sat by Pulse Oximetry (%) Laboratory Last Values WBC 6.5 K/mm3 (4.0-10.0) D 06/09/17 08:00 RBC 3.73 M/mm3 (4.00-5.60) L 06/09/17 08:00 Hgb 10.7 GM/dL (11.7-16.9) L D 06/09/17 08:00 Hct 32.3 % (35.4-49) L 06/09/17 08:00 MCV 86.4 fl (80-96) 06/09/17 08:00 MCH 28.7 pg (25.7-33.7) 06/09/17 08:00 MCHC 33.2 g/dl (32.0-35.9) 06/09/17 08:00 RDW 14.3 % (11.9-15.9) 06/09/17 08:00 Plt Count 283 K/MM3 (134-434) 06/09/17 08:00 MPV 7.8 fl (7.5-11.1) 06/09/17 08:00 Sodium 141 mmol/L (136-145) 06/09/17 08:00 Potassium 4.0 mmol/L (3.5-5.1) 06/09/17 08:00 Chloride 107 mmol/L (98-107) 06/09/17 08:00 Carbon Dioxide 24 mmol/L (21-32) D 06/09/17 08:00 Anion Gap 10 (8-16) 06/09/17 08:00 BUN 25 mg/dL (7-18) H D 06/09/17 08:00 Creatinine 1.4 mg/dL (0.7-1.3) H 06/09/17 08:00 Creat Clearance w eGFR 53.86 (>60) 06/09/17 08:00 Random Glucose 110 mg/dL (74-106) H 06/09/17 08:00 Calcium 9.0 mg/dL (8.5-10.1) 06/09/17 08:00 Total Bilirubin 0.3 mg/dL (0.2-1.0) D 06/09/17 08:00 AST 35 U/L (15-37) D 06/09/17 08:00 ALT 44 U/L (12-78) D 06/09/17 08:00 Alkaline Phosphatase 86 U/L (45-117) D 06/09/17 08:00 Total Protein 5.9 g/dl (6.4-8.2) L 06/09/17 08:00 Albumin 3.0 g/dl (3.4-5.0) L 06/09/17 08:00 Urine Color Lt. yellow 06/09/17 09:20 Urine Appearance Clear 06/09/17 09:20 Urine pH 6.0 (5.0-8.0) 06/09/17 09:20 Ur Specific [place] <= 1.005 (1.005-1.025) 06/09/17 09:20 Urine Protein Negative (NEGATIVE) 06/09/17 09:20 Urine Glucose (UA) Negative (NEGATIVE) 06/09/17 09:20 Urine Ketones Negative (NEGATIVE) 06/09/17 09:20 Urine Blood 1+ (NEGATIVE) H 06/09/17 09:20 Urine Nitrite Negative (NEGATIVE) 06/09/17 09:20 Urine Bilirubin Negative (NEGATIVE) 06/09/17 09:20 Urine Urobilinogen 0.2 mg/dL (0.2-1.0) 06/09/17 09:20 Ur Leukocyte Esterase Negative (NEGATIVE) 06/09/17 09:20 Urine RBC 1 /hpf (0-3) 06/09/17 09:20 Urine WBC 2 /hpf (3-5) 06/09/17 09:20 Urine Bacteria Moderate /hpf (NONE SEEN) 06/09/17 09:20 RPR Titer Nonreactive (NONREACTIVE) 06/09/17 08:00 Assessment: 06/11/17 11:32 WITHDRAWAL SX Plan: CONTINUE DETOX
[2017-06-11] MEDS: THIAMINE HCL 100 MG TABLET (FP) PO SCH (22:26)
[2017-06-11] MEDS: chlordiazePOXIDE HCL 10 MG CAPSULE PO SCH (22:26)
[2017-06-12] MEDS: chlordiazePOXIDE HCL 10 MG CAPSULE PO SCH ×3 (05:22→17:32)
[2017-06-12] MEDS: FERROUS SO4 325 MG TABLET (FP) PO SCH ×3 (07:38→17:46)
[2017-06-12] MEDS ORDERED: METHADONE HCL 10 MG TABLET (FOR DETOX USE ONLY) PO SCH (10:00)
[2017-06-12] MEDS: PRENATAL VITAMINS W/ FOLIC ACID TABLET (FP) PO SCH (10:22)
[2017-06-12] MEDS: NICOTINE 21 MG/24 HOURS TOPICAL PATCH TD SCH (10:22)
--- NOTE | 2017-06-12 11:02 | PN ---
BHS Progress Note (SOAP) Subjective: ANXIETY,SWEATS,INTERMITTENT SLEEP. Objective: 06/12/17 11:01 Vital Signs Temperature 96.7 F L 06/12/17 09:46 Pulse Rate 91 H 06/12/17 09:46 Respiratory Rate 16 06/12/17 09:46 Blood Pressure 105/74 06/12/17 09:46 O2 Sat by Pulse Oximetry (%) Laboratory Last Values WBC 6.5 K/mm3 (4.0-10.0) D 06/09/17 08:00 RBC 3.73 M/mm3 (4.00-5.60) L 06/09/17 08:00 Hgb 10.7 GM/dL (11.7-16.9) L D 06/09/17 08:00 Hct 32.3 % (35.4-49) L 06/09/17 08:00 MCV 86.4 fl (80-96) 06/09/17 08:00 MCH 28.7 pg (25.7-33.7) 06/09/17 08:00 MCHC 33.2 g/dl (32.0-35.9) 06/09/17 08:00 RDW 14.3 % (11.9-15.9) 06/09/17 08:00 Plt Count 283 K/MM3 (134-434) 06/09/17 08:00 MPV 7.8 fl (7.5-11.1) 06/09/17 08:00 Sodium 141 mmol/L (136-145) 06/09/17 08:00 Potassium 4.0 mmol/L (3.5-5.1) 06/09/17 08:00 Chloride 107 mmol/L (98-107) 06/09/17 08:00 Carbon Dioxide 24 mmol/L (21-32) D 06/09/17 08:00 Anion Gap 10 (8-16) 06/09/17 08:00 BUN 25 mg/dL (7-18) H D 06/09/17 08:00 Creatinine 1.4 mg/dL (0.7-1.3) H 06/09/17 08:00 Creat Clearance w eGFR 53.86 (>60) 06/09/17 08:00 Random Glucose 110 mg/dL (74-106) H 06/09/17 08:00 Calcium 9.0 mg/dL (8.5-10.1) 06/09/17 08:00 Total Bilirubin 0.3 mg/dL (0.2-1.0) D 06/09/17 08:00 AST 35 U/L (15-37) D 06/09/17 08:00 ALT 44 U/L (12-78) D 06/09/17 08:00 Alkaline Phosphatase 86 U/L (45-117) D 06/09/17 08:00 Total Protein 5.9 g/dl (6.4-8.2) L 06/09/17 08:00 Albumin 3.0 g/dl (3.4-5.0) L 06/09/17 08:00 Urine Color Lt. yellow 06/09/17 09:20 Urine Appearance Clear 06/09/17 09:20 Urine pH 6.0 (5.0-8.0) 06/09/17 09:20 Ur Specific [place] <= 1.005 (1.005-1.025) 06/09/17 09:20 Urine Protein Negative (NEGATIVE) 06/09/17 09:20 Urine Glucose (UA) Negative (NEGATIVE) 06/09/17 09:20 Urine Ketones Negative (NEGATIVE) 06/09/17 09:20 Urine Blood 1+ (NEGATIVE) H 06/09/17 09:20 Urine Nitrite Negative (NEGATIVE) 06/09/17 09:20 Urine Bilirubin Negative (NEGATIVE) 06/09/17 09:20 Urine Urobilinogen 0.2 mg/dL (0.2-1.0) 06/09/17 09:20 Ur Leukocyte Esterase Negative (NEGATIVE) 06/09/17 09:20 Urine RBC 1 /hpf (0-3) 06/09/17 09:20 Urine WBC 2 /hpf (3-5) 06/09/17 09:20 Urine Bacteria Moderate /hpf (NONE SEEN) 06/09/17 09:20 RPR Titer Nonreactive (NONREACTIVE) 06/09/17 08:00 Assessment: 06/12/17 11:01 WITHDRAWAL SX Plan: CONTINUE DETOX
[2017-06-12] MEDS: THIAMINE HCL 100 MG TABLET (FP) PO SCH (22:56)
[2017-06-13] MEDS ORDERED: METHADONE HCL 5 MG TABLET (FOR DETOX USE ONLY) PO SCH (06:00)
[2017-06-13] MEDS: FERROUS SO4 325 MG TABLET (FP) PO SCH (07:20)
--- NOTE | 2017-06-13 08:47 | DS ---
[facility] Detox Discharge Summary Admission Date: 06/08/17 Discharge Date: 06/13/17 - History Present History: Alcohol Dependence, Opioid Dependence Additional Comments: DETOX COMPLETED. ALERT O X 3. NAD. Pertinent Past History: S/P COLOSTOMY ANEMIA - Physical Exam Results Vital Signs: Vital Signs Temperature 96.8 F L 06/13/17 06:34 Pulse Rate 74 06/13/17 06:34 Respiratory Rate 18 06/13/17 06:34 Blood Pressure 104/68 06/13/17 06:34 O2 Sat by Pulse Oximetry (%) Pertinent Admission Physical Exam Findings: WITHDRAWAL SX Laboratory Last Values WBC 6.5 K/mm3 (4.0-10.0) D 06/09/17 08:00 RBC 3.73 M/mm3 (4.00-5.60) L 06/09/17 08:00 Hgb 10.7 GM/dL (11.7-16.9) L D 06/09/17 08:00 Hct 32.3 % (35.4-49) L 06/09/17 08:00 MCV 86.4 fl (80-96) 06/09/17 08:00 MCH 28.7 pg (25.7-33.7) 06/09/17 08:00 MCHC 33.2 g/dl (32.0-35.9) 06/09/17 08:00 RDW 14.3 % (11.9-15.9) 06/09/17 08:00 Plt Count 283 K/MM3 (134-434) 06/09/17 08:00 MPV 7.8 fl (7.5-11.1) 06/09/17 08:00 Sodium 141 mmol/L (136-145) 06/09/17 08:00 Potassium 4.0 mmol/L (3.5-5.1) 06/09/17 08:00 Chloride 107 mmol/L (98-107) 06/09/17 08:00 Carbon Dioxide 24 mmol/L (21-32) D 06/09/17 08:00 Anion Gap 10 (8-16) 06/09/17 08:00 BUN 25 mg/dL (7-18) H D 06/09/17 08:00 Creatinine 1.4 mg/dL (0.7-1.3) H 06/09/17 08:00 Creat Clearance w eGFR 53.86 (>60) 06/09/17 08:00 Random Glucose 110 mg/dL (74-106) H 06/09/17 08:00 Calcium 9.0 mg/dL (8.5-10.1) 06/09/17 08:00 Total Bilirubin 0.3 mg/dL (0.2-1.0) D 06/09/17 08:00 AST 35 U/L (15-37) D 06/09/17 08:00 ALT 44 U/L (12-78) D 06/09/17 08:00 Alkaline Phosphatase 86 U/L (45-117) D 06/09/17 08:00 Total Protein 5.9 g/dl (6.4-8.2) L 06/09/17 08:00 Albumin 3.0 g/dl (3.4-5.0) L 06/09/17 08:00 Urine Color Lt. yellow 06/09/17 09:20 Urine Appearance Clear 06/09/17 09:20 Urine pH 6.0 (5.0-8.0) 06/09/17 09:20 Ur Specific [place] <= 1.005 (1.005-1.025) 06/09/17 09:20 Urine Protein Negative (NEGATIVE) 06/09/17 09:20 Urine Glucose (UA) Negative (NEGATIVE) 06/09/17 09:20 Urine Ketones Negative (NEGATIVE) 06/09/17 09:20 Urine Blood 1+ (NEGATIVE) H 06/09/17 09:20 Urine Nitrite Negative (NEGATIVE) 06/09/17 09:20 Urine Bilirubin Negative (NEGATIVE) 06/09/17 09:20 Urine Urobilinogen 0.2 mg/dL (0.2-1.0) 06/09/17 09:20 Ur Leukocyte Esterase Negative (NEGATIVE) 06/09/17 09:20 Urine RBC 1 /hpf (0-3) 06/09/17 09:20 Urine WBC 2 /hpf (3-5) 06/09/17 09:20 Urine Bacteria Moderate /hpf (NONE SEEN) 06/09/17 09:20 RPR Titer Nonreactive (NONREACTIVE) 06/09/17 08:00 - Treatment Hospital Course: Detox Protocol Followed, Detoxed Safely, Responded well, Discharged Condition Good, Rehab Referral Accepted Patient has Accepted a Rehab Referral to: [facility] - Medication Discharge Medications: Ambulatory Orders Fluoxetine HCl [Prozac -] 10 mg PO DAILY 06/08/17 - Diagnosis (1) Presence of colostomy Current Visit: Yes Status: Chronic (2) Alcohol dependence with uncomplicated withdrawal Current Visit: Yes Status: Acute (3) Nicotine dependence Current Visit: Yes Status: Acute Qualifiers: Nicotine product type: cigarettes Substance use status: in withdrawal Qualified Code(s): F17.213 - Nicotine dependence, cigarettes, with withdrawal (4) Anemia Current Visit: Yes Status: Acute Qualifiers: Anemia type: iron deficiency (5) Opioid dependence with withdrawal Current Visit: Yes Status: Acute - AMA Did Patient Leave Against Medical Advice: No
[2017-06-13 09:51] VITALS: BP 101/68; PULSE 90; TEMP 97.2
[2017-06-13] MEDS: NICOTINE 21 MG/24 HOURS TOPICAL PATCH TD SCH (10:56)
[2017-06-13] MEDS: PRENATAL VITAMINS W/ FOLIC ACID TABLET (FP) PO SCH (10:56)
== END 2017-06-13 12:41 | disposition other institution (70) | DRG 897 ==
LOC: YASAS 15:07 → Y3N 17:47
PROVIDERS: ADMIT Internal Medicine; ATTEND Internal Medicine
PROC: HZ2ZZZZ Detoxification Services for Substance Abuse Treatment (ICD-10-PCS; principal; 2017-06-08)
DX: F11.23 Opioid dependence with withdrawal (principal); F10.230 Alcohol dependence with withdrawal, uncomplicated; F17.210 Nicotine dependence, cigarettes, uncomplicated; D64.9 Anemia, unspecified; Z93.3 Colostomy status; Z91.013 Allergy to seafood; Z88.0 Allergy status to penicillin; Z86.19 Personal history of other infectious and parasitic diseases
CPT/HCPCS: 36415; 80053; 81003; 81015; 85027; 86593; 93005; 93010

== ENCOUNTER 2017-06-13 12:47 | Inpatient (IN) | payer OTHER ==
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
--- NOTE | 2017-06-13 16:29 | HP ---
[facility] Rehab Assess/Revision - Admission History Admitted to Rehab from: [facility] Date of Admission to Rehab: 06/13/17 - Findings Detox History & Physical reviewed: Yes Concur with findings: Yes Comments/Additional Findings: TRANSFERRED FROM DETOX TO REHAB ADMISSION PER PROTOCOL
[2017-06-13] MEDS ORDERED: P-EPHED 60MG/TRIPROLIDI 2.5MG TABLET PO PRN (16:30)
[2017-06-13] MEDS ORDERED: MAGNESIUM CITRATE 300 ML BOTTLE PO PRN (16:30)
[2017-06-13] MEDS ORDERED: NICOTINE 14 MG/24 HOURS TOPICAL PATCH TD PRN (16:30)
[2017-06-13] MEDS ORDERED: ACETAMINOPHEN 325 MG TABLET (FP) PO PRN (16:30)
[2017-06-13] MEDS ORDERED: NICOTINE POLACRILEX 2 MG GUM BUC PRN (16:30)
[2017-06-13] MEDS ORDERED: MENTHOL/PHENOL 1 EACH UD MM PRN (16:30)
[2017-06-13] MEDS ORDERED: IBUPROFEN 400 MG TABLET (FP) PO PRN (16:30)
[2017-06-13] MEDS ORDERED: MAG HYDROX/AL HYDROX/SIMETH 30 ML UNIT-DOSE CUP PO PRN (16:30)
[2017-06-13] MEDS ORDERED: guaiFENesin/D-METHORPHAN HB 10 ML UNIT-DOSE CUPS PO PRN (16:30)
[2017-06-13] MEDS ORDERED: MAGNESIUM HYDROX 2400MG/30ML ORAL SUSPENSION 30 ML CUP PO PRN (16:30)
[2017-06-13] MEDS ORDERED: LOPERAMIDE HCL 2 MG CAPSULE PO PRN (16:30)
[2017-06-13] MEDS ORDERED: risperiDONE 3 MG TABLET PO SCH (22:00)
[2017-06-13] MEDS: risperiDONE 2 MG TABLET PO SCH (22:02)
[2017-06-13] MEDS: THIAMINE HCL 100 MG TABLET (FP) PO SCH (22:02)
[2017-06-13] MEDS: BENZTROPINE MESYLATE 1 MG TABLET (FP) PO SCH (22:02)
[2017-06-14] MEDS ORDERED: risperiDONE 2 MG TABLET PO SCH (10:00)
[2017-06-14] MEDS ORDERED: FLUoxetine HCL 20 MG CAPSULE (FP) PO SCH (10:00)
[2017-06-14] MEDS: PRENATAL VITAMINS W/ FOLIC ACID TABLET (FP) PO SCH (10:05)
[2017-06-14] MEDS: risperiDONE 2 MG TABLET PO SCH ×2 (10:06→21:41)
[2017-06-14] MEDS: BENZTROPINE MESYLATE 1 MG TABLET (FP) PO SCH ×2 (10:06→21:42)
[2017-06-14] MEDS: FLUoxetine HCL 10 MG CAPSULE (FP) PO SCH (10:06)
[2017-06-14 13:36] LABS: HIV 1 & 2 AB NEGATIVE; HIV 1 AGp24 NEGATIVE
[2017-06-14] MEDS: THIAMINE HCL 100 MG TABLET (FP) PO SCH (21:41)
[2017-06-15] MEDS: PRENATAL VITAMINS W/ FOLIC ACID TABLET (FP) PO SCH (10:06)
[2017-06-15] MEDS: risperiDONE 2 MG TABLET PO SCH ×2 (10:07→21:26)
[2017-06-15] MEDS: FLUoxetine HCL 10 MG CAPSULE (FP) PO SCH (10:07)
[2017-06-15] MEDS: BENZTROPINE MESYLATE 1 MG TABLET (FP) PO SCH ×2 (10:07→21:26)
[2017-06-15] MEDS: THIAMINE HCL 100 MG TABLET (FP) PO SCH (21:26)
[2017-06-16] MEDS: PRENATAL VITAMINS W/ FOLIC ACID TABLET (FP) PO SCH (10:15)
[2017-06-16] MEDS: BENZTROPINE MESYLATE 1 MG TABLET (FP) PO SCH ×2 (10:15→21:38)
[2017-06-16] MEDS: FLUoxetine HCL 10 MG CAPSULE (FP) PO SCH (10:15)
[2017-06-16] MEDS: risperiDONE 2 MG TABLET PO SCH ×2 (10:15→21:38)
[2017-06-16] MEDS: diphenhydrAMINE HCL 50 MG CAPSULE PO PRN (21:40)
[2017-06-16] MEDS: THIAMINE HCL 100 MG TABLET (FP) PO SCH (21:40)
[2017-06-17] MEDS: PRENATAL VITAMINS W/ FOLIC ACID TABLET (FP) PO SCH (10:07)
[2017-06-17] MEDS: FLUoxetine HCL 10 MG CAPSULE (FP) PO SCH (10:08)
[2017-06-17] MEDS: BENZTROPINE MESYLATE 1 MG TABLET (FP) PO SCH ×2 (10:08→21:13)
[2017-06-17] MEDS: risperiDONE 2 MG TABLET PO SCH ×2 (10:08→21:13)
--- NOTE | 2017-06-17 14:29 | PN ---
[facility] Progress Note Note: patient approached today and asked to change Risprerdal and Cogentin from 10 pm to 8 pm. Time of medication intake were changed. Will continue monitor progress.
[2017-06-17] MEDS: diphenhydrAMINE HCL 50 MG CAPSULE PO PRN (21:13)
[2017-06-17] MEDS: THIAMINE HCL 100 MG TABLET (FP) PO SCH (21:13)
[2017-06-18 06:58] VITALS: BP 112/76; PULSE 110; TEMP 97.4
[2017-06-18] MEDS: FLUoxetine HCL 10 MG CAPSULE (FP) PO SCH (10:25)
[2017-06-18] MEDS: PRENATAL VITAMINS W/ FOLIC ACID TABLET (FP) PO SCH (10:25)
[2017-06-18] MEDS: BENZTROPINE MESYLATE 1 MG TABLET (FP) PO SCH (10:25)
[2017-06-18] MEDS: risperiDONE 2 MG TABLET PO SCH (10:26)
[2017-06-18] MEDS ORDERED: BENZTROPINE MESYLATE 1 MG TABLET (FP) PO SCH (10:28)
[2017-06-18] MEDS ORDERED: risperiDONE 2 MG TABLET PO SCH (10:29)
--- NOTE | 2017-06-18 12:39 | PN ---
Psychiatric Progress Note Vital Signs: Vital Signs Period Temp Pulse Resp BP Sys/Gonzalez Pulse Ox Last 24 Hr 97.4 F 110 18-18 112/76 Date of Session: 06/18/17 Chief Complaint:: leaving ama HPI: The patient is a 47 year old male with history of alcohol, opioid, nicotine depndence comorbid Schizophrenia,paranoid. ROS: Hepatitis B, S/P removal of cyst from testicle skin, right arm, right leg and back and S/P Bowel surgery with colostomy Current Medications: Active Medications Generic Name Dose Route Start Last Admin Trade Name Freq PRN Reason Stop Dose Admin Acetaminophen 650 mg 06/13/17 16:30 Tylenol - PO Q4H PRN FEVER OR PAIN Al Hydroxide/Mg Hydroxide 30 ml 06/13/17 16:30 Mylanta Oral Suspension - PO Q6H PRN DYSPEPSIA Benztropine Mesylate 1 mg 06/18/17 10:28 Cogentin - PO BID@1000,2000 KADEN Diphenhydramine HCl 50 mg 06/13/17 16:30 06/17/17 21:13 Benadryl - PO 50 mg HSMR1 PRN Administration FOR ITCHING Eucalyptus/Menthol/Phenol/Sorbitol 1 each 06/13/17 16:30 Cepastat Lozenge - MM Q4H PRN SORE THROAT Fluoxetine HCl 30 mg 06/14/17 10:00 06/18/17 10:25 Prozac - PO 30 mg DAILY KADEN Administration Guaifenesin 10 ml 06/13/17 16:30 Robitussin Dm - PO Q6H PRN COUGH Ibuprofen 400 mg 06/13/17 16:30 Motrin - PO Q6H PRN PAIN Loperamide HCl 4 mg 06/13/17 16:30 Imodium - PO Q6H PRN DIARRHEA Magnesium Hydroxide 30 ml 06/13/17 16:30 Milk Of Magnesia - PO DAILY PRN CONSTIPATION Nicotine 14 mg 06/13/17 16:30 Nicoderm Patch - TD DAILY PRN WITHDRAWAL(CONT SUBST) Nicotine Polacrilex 2 mg 06/13/17 16:30 Nicorette Gum - BUC Q2H PRN NICOTINE REPLACEMENT RX Multivit/Folic Acid/Iron 1 tab 06/14/17 10:00 06/18/17 10:25 Vitamins (Sjr) - PO 1 tab DAILY KADEN Administration Pseudoephedrine/Triprolidine 1 combo 06/13/17 16:30 Actifed - PO TID PRN NASAL CONGESTION Risperidone 2 mg 06/18/17 10:29 Risperdal - PO BID@1000,2000 KADEN Thiamine HCl 100 mg 06/13/17 22:00 06/17/17 21:13 Vitamin B1 - PO 100 mg HS KADEN Administration Current Side Effect: No Lab tests ordered: No Lab tests reviewed: Yes Provider note:: Patient reports he is leaving ama, met with the patient to process his decision, he reports that he wants to leave now "I need to smoke". Patient was encourage to stay and focus on his treatment, bur still consistent in his desicon. Scripts were transferred to his pharmacy, stable upon ama d/c. Total face to face time:: 10 Mental Status Exam - Mental Status Exam Alert and Oriented to: Time, Place, Person Cognitive Function: Grossly Intact Patient Appearance: Well Groomed Affect: Appropriate, Mood Congruent Patient Behavior: Appropriate, Cooperative Speech Pattern: Clear, Appropriate Voice Loudness: Normal Thought Process: Intact Thought Disorder: Not Present Hallucinations: Denies Suicidal Ideation: Denies Homicidal Ideation: Denies Insight/Judgement: Fair Sleep: Fair Appetite: Fair Muscle strength/Tone: Normal Gait/Station: Normal Psychiatric Treatment Plan - Problem List (1) Alcohol dependence Current Visit: Yes (2) Opioid dependence Current Visit: Yes (3) Nicotine dependence Current Visit: No Qualifiers: Nicotine product type: cigarettes Substance use status: in withdrawal Qualified Code(s): F17.213 - Nicotine dependence, cigarettes, with withdrawal (4) Paranoid schizophrenia Current Visit: No
== END 2017-06-18 12:45 | disposition left against medical advice (07) | DRG 894 ==
LOC: YASAS 12:47 → Y5N 12:49
PROVIDERS: ADMIT Psychiatry & Neurology Psychiatry; ATTEND Psychiatry & Neurology Psychiatry
PROC: HZ42ZZZ Group Counseling for Substance Abuse Treatment, Cognitive-Behavioral (ICD-10-PCS; principal; 2017-06-18)
DX: F11.20 Opioid dependence, uncomplicated (principal); F20.0 Paranoid schizophrenia; F10.20 Alcohol dependence, uncomplicated; F17.210 Nicotine dependence, cigarettes, uncomplicated; D50.8 Other iron deficiency anemias; Z93.3 Colostomy status
CPT/HCPCS: 36415; 87389

== ENCOUNTER 2019-03-16 09:51 | Inpatient (IN) | payer OTHER ==
[2019-03-16 15:10] VITALS: BMI 22.3
--- NOTE | 2019-03-16 15:20 | HP ---
COWS - Scale Resting Pulse: 1= OR 81-100 Sweatin= Chills/Flushing Restless Observation: 1= Difficult to Sit Still Pupil Size: 1= Pupils >than Normal Bone or Joint Aches: 2= Severe Diffuse Aches Runny Nose/ Eye Tearin= Runny Nose/Eyes GI Upset > 30mins: 3= Vomiting/Diarrhea Tremor Observation: 2= Slight Tremor Visible Yawning Observation: 2= >3x During Session Anxiety or Irritability: 2=Irritable/Anxious Goose Flesh Skin: 0=Smooth Skin COWS Score: 17 CIWA Score Nausea/Vomitin Muscle Tremors: 2 Anxiety: 3 Agitation: 3 Paroxysmal Sweats: 1-Minimal Palms Moist Orientation: 0-Oriented Tacttile Disturbances: 1-Very Mild Itch/Numbness Auditory Disturbances: 1-Very Mild Visual Disturbances: 0-None Headache: 2-Mild CIWA-Ar Total Score: 15 - Admission Criteria OASAS Guidelines: Admission for Medically Managed Detox: Requires at least one of the followin. CIWA greater than 12 2. Seizures within the past 24 hours 3. Delirium tremens within the past 24 hours 4. Hallucinations within the past 24 hours 5. Acute intervention needed for co occurring medical disorder 6. Acute intervention needed for co occurring psychiatric disorder 7. Severe withdrawal that cannot be handled at a lower level of care (continued vomiting, continued diarrhea, abnormal vital signs) requiring intravenous medication and/or fluids 8. Admission ROS S - [facility] Chief Complaint: i need help to stop using heroin,alcohol and crack Allergies/Adverse Reactions: Allergies Allergy/AdvReac Type Severity Reaction Status Date / Time Fish Containing Products Allergy Severe Rash Verified 03/16/19 15:06 Penicillins Allergy Severe Rash Verified 06/03/18 12:44 seafood Allergy Severe Rash Uncoded 06/03/18 12:44 History of Present Illness: this 48 years old amle with heroin,alcohol and cocaine dependence seeking detox, withdrawal symptom multiple admissions in detox and rehab last treatment detox 06/08/17 to 06/13/17 rehab [facility] 06/03/18 to 06/27/18 history of hepatitis b nicotine dependence 2 packs/day,requesting nicotine patch and gum weight loss longest sobriety 2 years plan for rehab after detox Exam Limitations: No Limitations - Ebola screening Have you traveled outside of the country in the last 21 days: No (N) Have you had contact with anyone from an Ebola affected area: No Do you have a fever: No - Review of Systems Constitutional: Chills, Loss of Appetite, Malaise, Night Sweats, Changes in sleep, Weakness, Unintentional Wgt. Loss EENT: reports: Tearing, Nose Congestion Respiratory: reports: No Symptoms reported Cardiac: reports: No Symptoms Reported GI: reports: Diarrhea, Nausea, Vomiting, Abdominal cramping : reports: No Symptoms Reported Musculoskeletal: reports: Back Pain, Joint Pain, Muscle Pain, Joint Stiffness Neuro: reports: Headache, Tremors Endocrine: reports: No Symptoms Reported Hematology: reports: No Symptoms Reported Psychiatric: reports: No Sypmtoms Reported, Judgement Intact, Mood/Affect Appropiate, Orientated x3 Other Systems: Reviewed and Negative Patient History - Patient Medical History Hx Anemia: No Hx Asthma: No Hx Chronic Obstructive Pulmonary Disease (COPD): Yes (NO CURRENT TX- NONCOMPLIANT WITH TX) Hx Cancer: No Hx Cardiac Disorders: No Hx Congestive Heart Failure: No Hx Hypertension: No Hx Hypercholesterolemia: No Hx Pacemaker: No HX Cerebrovascular Accident: No Hx Seizures: No Hx Dementia: No Hx Diabetes: No Hx Gastrointestinal Disorders: No Hx Liver Disease: Yes (Hep B) Hx Genitourinary Disorders: No Hx Sexually Transmitted Disorders: No Hx Renal Disease (ESRD): No Hx Thyroid Disease: No Hx Human Immunodeficiency Virus (HIV): No (last 2017 negative) Hx Hepatitis C: No Hx Depression: Yes Hx Suicide Attempt: No (DENIES) Hx Bipolar Disorder: No Hx Schizophrenia: No Other Medical History: no suicidal,no homicidal - Patient Surgical History Past Surgical History: Yes Hx Neurologic Surgery: No Hx Cataract Extraction: No Hx Cardiac Surgery: No Hx Lung Surgery: No Hx Breast Surgery: No Hx Breast Biopsy: No Hx Abdominal Surgery: Yes (s/p perforated diverticulitis, s/p colostomy [facility] ) Hx Appendectomy: No Hx Cholecystectomy: No Hx Genitourinary Surgery: No Hx Section: No Hx Orthopedic Surgery: No Anesthesia Reaction: No - PPD History Previous Implant?: Yes Documented Results: Negative w/proof Implanted On Prior R Admission?: Yes Date: 06/05/18 Results: 0 mm PPD to be Administered?: No - Smoking Cessation Smoking history: Current every day smoker Have you smoked in the past 12 months: No Aproximately how many cigarettes per day: 40 If you are a former smoker, when did you quit?: 9 months ago Cigars Per Day: 20 Hx Chewing Tobacco Use: No Initiated information on smoking cessation: Yes 'Breaking Loose' booklet given: 03/16/19 - Substance & Tx. History Hx Alcohol Use: Yes Hx Substance Use: Yes Substance Use Type: Alcohol, Cocaine, Heroin Hx Substance Use Treatment: Yes (06/08/17 to 06/13/17 3 n,06/03/18 to 06/27/18 rehab) - Substances abused Heroin Substance route: Inhalation Frequency: Daily Amount used: 30 bags Age of first use: 40 Date of last use: 03/15/19 Alcohol Substance route: Oral Frequency: Daily Amount used: 1/2 pint vodka/ 6 pk of 24 ozs of beer Age of first use: 16 Date of last use: 03/15/19 Crack Substance route: Smoking Frequency: Daily Amount used: $100 Age of first use: 23 Date of last use: 03/15/19 Family Disease History - Family Disease History Family Disease History: Heart Disease: Father (cocaine), Mother (alcoholism), CA : Brother (colon), Sister (lung ), Other: Father, Mother Admission Physical Exam S - Vital Signs Vital Signs: Vital Signs - 24 hr 03/16/19 15:06 Temperature 98.1 F Pulse Rate 82 Respiratory 18 Rate Blood Pressure 120/81 - Physical General Appearance: Yes: Moderate Distress, Tremorous, Irritable, Sweating, Anxious HEENTM: Yes: Normal ENT Inspection, RAHEL, Pharynx Normal Respiratory: Yes: Lungs Clear, Normal Breath Sounds, No Respiratory Distress Neck: Yes: Within Normal Limits, Supple, Trachea in good position Breast: Yes: Within Normal Limits Cardiology: Yes: Within Normal Limits, Regular Rate, S1, S2, Murmur Abdominal: Yes: Within Normal Limits, Normal Bowel Sounds, Non Tender, Soft, Surgical Scar Genitourinary: Yes: Within Normal Limits Back: Yes: Muscle Spasm Musculoskeletal: Yes: full range of Motion, Back pain, Muscle Pain Extremities: Yes: Within Normal Limits, Normal Range of Motion, Tremors Neurological: Yes: microstrategy architect II-XII NML intact, Fully Oriented, Alert, Motor Strength 5/5 Integumentary: Yes: Dry Lymphatic: Yes: Within Normal Limits - Diagnostic (1) Opioid dependence with withdrawal Current Visit: No Status: Acute (2) Alcohol dependence with uncomplicated withdrawal Current Visit: No Status: Acute (3) Cocaine dependence Current Visit: No Status: Acute (4) Nicotine dependence Current Visit: No Status: Acute Qualifiers: Nicotine product type: cigarettes Substance use status: in withdrawal Qualified Code(s): F17.213 - Nicotine dependence, cigarettes, with withdrawal (5) COPD (chronic obstructive pulmonary disease) Current Visit: No Status: Chronic Qualifiers: COPD type: emphysema Emphysema type: unspecified Qualified Code(s): J43.9 - Emphysema, unspecified (6) Hepatitis B Current Visit: No Status: Suspected Cleared for Admission S - Detox or Rehab S Level of Care: Medically Managed Detox Regimen/Protocol: Methadone/Librium Breathalyzer - Breathalyzer Breathalyzer: 0 Urine Drug Screen - Test Device Lot number: [id number] Expiration date: 11/27/20 - Results Drug screen NEGATIVE: No Urine drug screen results: JUNO-Cocaine, MOP-Opiates, OXY-Oxycodone Inpatient Rehab Admission - Rehab Decision to Admit Inpatient rehab admission?: No
[2019-03-16] MEDS ORDERED: cloNIDine HCL 0.1 MG TABLET PO PRN (15:31)
[2019-03-16] MEDS ORDERED: METHADONE HCL 10 MG TABLET (FOR DETOX USE ONLY) PO ONE ×2 (15:33→23:00)
[2019-03-16] MEDS ORDERED: chlordiazePOXIDE HCL 25 MG CAPSULE PO PRN (15:37)
[2019-03-16] MEDS ORDERED: hydrOXYzine PAMOATE 25 MG CAPSULE (FP) PO PRN (15:38)
[2019-03-16] MEDS ORDERED: IBUPROFEN 400 MG TABLET (FP) PO PRN (15:38)
[2019-03-16] MEDS ORDERED: BISMUTH SUBSALICYLATE 524 MG/30 ML UD PO PRN (15:38)
[2019-03-16] MEDS ORDERED: METHOCARBAMOL 500 MG TABLET PO PRN (15:38)
[2019-03-16] MEDS ORDERED: ACETAMINOPHEN 325 MG TABLET (FP) PO PRN ×2 (15:38)
[2019-03-16] MEDS ORDERED: MAGNESIUM CITRATE 300 ML BOTTLE PO PRN (15:38)
[2019-03-16] MEDS ORDERED: NICOTINE POLACRILEX 2 MG GUM BUC PRN (15:38)
[2019-03-16] MEDS ORDERED: MENTHOL/PHENOL 1 EACH UD MM PRN (15:38)
[2019-03-16] MEDS ORDERED: MAGNESIUM HYDROX 2400MG/30ML ORAL SUSPENSION 30 ML CUP PO PRN (15:38)
[2019-03-16] MEDS ORDERED: MAG HYDROX/AL HYDROX/SIMETH 30 ML UNIT-DOSE CUP PO PRN (15:38)
[2019-03-16] MEDS: NICOTINE 21 MG/24 HOURS TOPICAL PATCH TD SCH (17:08)
[2019-03-16] MEDS: chlordiazePOXIDE HCL 25 MG CAPSULE PO SCH ×2 (17:08→22:04)
[2019-03-16 18:23] LABS: HEMATOCRIT 41.4 % (35.4-49); HEMOGLOBIN 13.9 GM/dL (11.7-16.9); MCH 29.5 pg (25.7-33.7); MCHC 33.5 g/dl (32.0-35.9); MEAN PLT VOLUME 9.2 fl (7.5-11.1); PLATELET COUNT 227 K/MM3 (134-434); RBC 4.71 M/mm3 (4.00-5.60); RDW 13.7 % (11.9-15.9); WHITE BLOOD COUNT 8.8 K/mm3 (4.0-10.0)
[2019-03-16 18:30] LABS: BILIRUBIN,TOTAL 0.7 mg/dL (0.2-1); CALCIUM 9.3 mg/dL (8.5-10.1); CREATININE 1.3 mg/dL (0.55-1.3); POTASSIUM 4.3 mmol/L (3.5-5.1); TOT PROT 6.8 g/dl (6.4-8.2)
[2019-03-16] MEDS: THIAMINE HCL 100 MG TABLET (FP) PO SCH (22:04)
[2019-03-16 23:09] LABS: URINE APPEARANCE CLEAR; URINE BILIRUBIN NEGATIVE (NEGATIVE); URINE COLOR YELLOW; URINE GLUCOSE (UA) NEGATIVE (NEGATIVE); URINE KETONE 1+ (NEGATIVE); URINE LEUK ESTERASE NEGATIVE (NEGATIVE); URINE NITRITE NEGATIVE (NEGATIVE); URINE PROTEIN NEGATIVE (NEGATIVE); URINE UROBILINOGEN 0.2 mg/dL (0.2-1.0)
[2019-03-17] MEDS: chlordiazePOXIDE HCL 25 MG CAPSULE PO SCH ×4 (06:25→22:01)
[2019-03-17] MEDS ORDERED: METHADONE HCL 10 MG TABLET (FOR DETOX USE ONLY) PO ONE (10:00)
[2019-03-17] MEDS: NICOTINE 21 MG/24 HOURS TOPICAL PATCH TD SCH (10:08)
[2019-03-17] MEDS: PRENATAL VITAMINS W/ FOLIC ACID TABLET (FP) PO SCH (10:08)
--- NOTE | 2019-03-17 11:17 | PN ---
[facility] CIWA - CIWA Score Nausea/Vomitin-Mild Nausea/No Vomiting Muscle Tremors: 4-Moderate,w/Arms Extend Anxiety: 3 Agitation: 3 Paroxysmal Sweats: 1-Minimal Palms Moist Orientation: 1-Uncertain about Date Tacttile Disturbances: 0-None Auditory Disturbances: 0-None Visual Disturbances: 0-None Headache: 1-Very Mild CIWA-Ar Total Score: 14 S COWS - Scale Resting Pulse: 0= MS 80 or Below Sweatin= Chills/Flushing Restless Observation: 0= Sits Still Pupil Size: 0= Normal to Room Light Bone or Joint Aches: 1= Mild Discomfort Runny Nose/ Eye Tearin= Nasal Congestion GI Upset > 30mins: 1= Stomach Cramp Tremor Observation of Outstretched Hands: 2= Slight Tremor Visible Yawning Observation: 1= 1-2x During Session Anxiety or Irritability: 2=Irritable/Anxious Goose Flesh Skin: 3=Piloerection COWS Score: 12 S Progress Note (SOAP) Subjective: resting on bed tired trouble sleep through the night Objective: 03/17/19 11:15 Vital Signs Temperature 97.9 F 03/17/19 09:09 Pulse Rate 71 03/17/19 09:09 Respiratory Rate 18 03/17/19 09:09 Blood Pressure 111/72 03/17/19 09:09 O2 Sat by Pulse Oximetry (%) Laboratory Last Values WBC 8.8 K/mm3 (4.0-10.0) 03/16/19 15:30 RBC 4.71 M/mm3 (4.00-5.60) 03/16/19 15:30 Hgb 13.9 GM/dL (11.7-16.9) 03/16/19 15:30 Hct 41.4 % (35.4-49) 03/16/19 15:30 MCV 88.0 fl (80-96) 03/16/19 15:30 MCH 29.5 pg (25.7-33.7) 03/16/19 15:30 MCHC 33.5 g/dl (32.0-35.9) 03/16/19 15:30 RDW 13.7 % (11.9-15.9) D 03/16/19 15:30 Plt Count 227 K/MM3 (134-434) 03/16/19 15:30 MPV 9.2 fl (7.5-11.1) D 03/16/19 15:30 Sodium 131 mmol/L (136-145) L 03/16/19 15:30 Potassium 4.3 mmol/L (3.5-5.1) 03/16/19 15:30 Chloride 100 mmol/L (98-107) 03/16/19 15:30 Carbon Dioxide 23 mmol/L (21-32) 03/16/19 15:30 Anion Gap 8 MMOL/L (8-16) 03/16/19 15:30 BUN 33 mg/dL (7-18) H 03/16/19 15:30 Creatinine 1.3 mg/dL (0.55-1.3) 03/16/19 15:30 Est GFR (CKD-EPI)AfAm 73.74 03/16/19 15:30 Est GFR (CKD-EPI)NonAf 63.62 03/16/19 15:30 Random Glucose 91 mg/dL (74-106) 03/16/19 15:30 Calcium 9.3 mg/dL (8.5-10.1) 03/16/19 15:30 Total Bilirubin 0.7 mg/dL (0.2-1) 03/16/19 15:30 AST 22 U/L (15-37) 03/16/19 15:30 ALT 18 U/L (13-61) 03/16/19 15:30 Alkaline Phosphatase 107 U/L (45-117) 03/16/19 15:30 Total Protein 6.8 g/dl (6.4-8.2) 03/16/19 15:30 Albumin 4.0 g/dl (3.4-5.0) 03/16/19 15:30 Urine Color Yellow 03/16/19 23:00 Urine Appearance Clear 03/16/19 23:00 Urine pH 5.0 (5.0-8.0) 03/16/19 23:00 Ur Specific [place] 1.023 (1.010-1.035) 03/16/19 23:00 Urine Protein Negative (NEGATIVE) 03/16/19 23:00 Urine Glucose (UA) Negative (NEGATIVE) 03/16/19 23:00 Urine Ketones 1+ (NEGATIVE) H 03/16/19 23:00 Urine Blood Negative (NEGATIVE) 03/16/19 23:00 Urine Nitrite Negative (NEGATIVE) 03/16/19 23:00 Urine Bilirubin Negative (NEGATIVE) 03/16/19 23:00 Urine Urobilinogen 0.2 mg/dL (0.2-1.0) 03/16/19 23:00 Ur Leukocyte Esterase Negative (NEGATIVE) 03/16/19 23:00 RPR Titer Nonreactive (NONREACTIVE) 03/16/19 15:30 HIV 1&2 Antibody Screen Negative 03/16/19 15:30 HIV P24 Antigen Negative 03/16/19 15:30 03/17/19 11:18 lab noted Assessment: 03/17/19 11:19 withdrawal sx Plan: continue detox
[2019-03-17] MEDS: MELATONIN 5 MG TABLETS PO PRN (22:01)
[2019-03-17] MEDS: THIAMINE HCL 100 MG TABLET (FP) PO SCH (22:01)
[2019-03-18] MEDS: chlordiazePOXIDE HCL 25 MG CAPSULE PO SCH ×2 (05:20→10:05)
[2019-03-18] MEDS ORDERED: METHADONE HCL 10 MG TABLET (FOR DETOX USE ONLY) PO ONE (10:00)
[2019-03-18] MEDS: NICOTINE 21 MG/24 HOURS TOPICAL PATCH TD SCH (10:04)
[2019-03-18] MEDS: PRENATAL VITAMINS W/ FOLIC ACID TABLET (FP) PO SCH (10:05)
--- NOTE | 2019-03-18 11:06 | PN ---
[facility] CIWA - CIWA Score Nausea/Vomitin-Mild Nausea/No Vomiting Muscle Tremors: 3 Anxiety: 2 Agitation: 2 Paroxysmal Sweats: 1-Minimal Palms Moist Orientation: 0-Oriented Tacttile Disturbances: 0-None Auditory Disturbances: 0-None Visual Disturbances: 0-None Headache: 1-Very Mild CIWA-Ar Total Score: 10 BHS COWS - Scale Resting Pulse: 1= OR 81-100 Sweatin= Chills/Flushing Restless Observation: 0= Sits Still Pupil Size: 0= Normal to Room Light Bone or Joint Aches: 1= Mild Discomfort Runny Nose/ Eye Tearin= Nasal Congestion GI Upset > 30mins: 1= Stomach Cramp Tremor Observation of Outstretched Hands: 1= Tremor Loiza, Not Seen Yawning Observation: 1= 1-2x During Session Anxiety or Irritability: 1=Feels Anxious/Irritable Goose Flesh Skin: 0=Smooth Skin COWS Score: 8 S Progress Note (SOAP) Subjective: doing well today good night sleep more energy discuss medication assisted maintenance treatment program Objective: 03/18/19 11:07 Vital Signs Temperature 98.2 F 03/18/19 09:03 Pulse Rate 81 03/18/19 09:03 Respiratory Rate 18 03/18/19 09:03 Blood Pressure 106/73 03/18/19 09:03 O2 Sat by Pulse Oximetry (%) Laboratory Last Values WBC 8.8 K/mm3 (4.0-10.0) 03/16/19 15:30 RBC 4.71 M/mm3 (4.00-5.60) 03/16/19 15:30 Hgb 13.9 GM/dL (11.7-16.9) 03/16/19 15:30 Hct 41.4 % (35.4-49) 03/16/19 15:30 MCV 88.0 fl (80-96) 03/16/19 15:30 MCH 29.5 pg (25.7-33.7) 03/16/19 15:30 MCHC 33.5 g/dl (32.0-35.9) 03/16/19 15:30 RDW 13.7 % (11.9-15.9) D 03/16/19 15:30 Plt Count 227 K/MM3 (134-434) 03/16/19 15:30 MPV 9.2 fl (7.5-11.1) D 03/16/19 15:30 Sodium 131 mmol/L (136-145) L 03/16/19 15:30 Potassium 4.3 mmol/L (3.5-5.1) 03/16/19 15:30 Chloride 100 mmol/L (98-107) 03/16/19 15:30 Carbon Dioxide 23 mmol/L (21-32) 03/16/19 15:30 Anion Gap 8 MMOL/L (8-16) 03/16/19 15:30 BUN 33 mg/dL (7-18) H 03/16/19 15:30 Creatinine 1.3 mg/dL (0.55-1.3) 03/16/19 15:30 Est GFR (CKD-EPI)AfAm 73.74 03/16/19 15:30 Est GFR (CKD-EPI)NonAf 63.62 03/16/19 15:30 Random Glucose 91 mg/dL (74-106) 03/16/19 15:30 Calcium 9.3 mg/dL (8.5-10.1) 03/16/19 15:30 Total Bilirubin 0.7 mg/dL (0.2-1) 03/16/19 15:30 AST 22 U/L (15-37) 03/16/19 15:30 ALT 18 U/L (13-61) 03/16/19 15:30 Alkaline Phosphatase 107 U/L (45-117) 03/16/19 15:30 Total Protein 6.8 g/dl (6.4-8.2) 03/16/19 15:30 Albumin 4.0 g/dl (3.4-5.0) 03/16/19 15:30 Urine Color Yellow 03/16/19 23:00 Urine Appearance Clear 03/16/19 23:00 Urine pH 5.0 (5.0-8.0) 03/16/19 23:00 Ur Specific [place] 1.023 (1.010-1.035) 03/16/19 23:00 Urine Protein Negative (NEGATIVE) 03/16/19 23:00 Urine Glucose (UA) Negative (NEGATIVE) 03/16/19 23:00 Urine Ketones 1+ (NEGATIVE) H 03/16/19 23:00 Urine Blood Negative (NEGATIVE) 03/16/19 23:00 Urine Nitrite Negative (NEGATIVE) 03/16/19 23:00 Urine Bilirubin Negative (NEGATIVE) 03/16/19 23:00 Urine Urobilinogen 0.2 mg/dL (0.2-1.0) 03/16/19 23:00 Ur Leukocyte Esterase Negative (NEGATIVE) 03/16/19 23:00 RPR Titer Nonreactive (NONREACTIVE) 03/16/19 15:30 HIV 1&2 Antibody Screen Negative 03/16/19 15:30 HIV P24 Antigen Negative 03/16/19 15:30 lab noted increase oral fluid Assessment: 03/18/19 11:09 withdrawal sx repeat bun Plan: continue detox
[2019-03-18] MEDS ORDERED: chlordiazePOXIDE HCL 10 MG CAPSULE PO PRN (17:00)
[2019-03-18] MEDS: chlordiazePOXIDE HCL 10 MG CAPSULE PO SCH ×2 (17:41→22:01)
[2019-03-18] MEDS: THIAMINE HCL 100 MG TABLET (FP) PO SCH (22:01)
[2019-03-18] MEDS: MELATONIN 5 MG TABLETS PO PRN (22:01)
[2019-03-19] MEDS: chlordiazePOXIDE HCL 10 MG CAPSULE PO SCH ×3 (05:10→17:43)
[2019-03-19] MEDS ORDERED: METHADONE HCL 10 MG TABLET (FOR DETOX USE ONLY) ONE (09:09)
[2019-03-19] MEDS ORDERED: METHADONE HCL 5 MG TABLET (FOR DETOX USE ONLY) ONE (09:10)
[2019-03-19] MEDS ORDERED: METHADONE (DETOX) 10 MG, METHADONE (DETOX) 5 MG PO ONE (10:00)
[2019-03-19] MEDS ORDERED: METHADONE HCL 10 MG TABLET (FOR DETOX USE ONLY) PO ONE (10:00)
[2019-03-19] MEDS: NICOTINE 21 MG/24 HOURS TOPICAL PATCH TD SCH (10:31)
[2019-03-19] MEDS: PRENATAL VITAMINS W/ FOLIC ACID TABLET (FP) PO SCH (10:34)
--- NOTE | 2019-03-19 15:15 | PN ---
[facility] CIWA - CIWA Score Nausea/Vomitin-Mild Nausea/No Vomiting Muscle Tremors: 3 Anxiety: 2 Agitation: 2 Paroxysmal Sweats: 1-Minimal Palms Moist Orientation: 0-Oriented Tacttile Disturbances: 0-None Auditory Disturbances: 0-None Visual Disturbances: 0-None Headache: 0-None Present CIWA-Ar Total Score: 9 [facility] COWS - Scale Resting Pulse: 0= [place] 80 or Below Sweatin= Chills/Flushing Restless Observation: 0= Sits Still Pupil Size: 0= Normal to Room Light Bone or Joint Aches: 1= Mild Discomfort Runny Nose/ Eye Tearin= Nasal Congestion GI Upset > 30mins: 1= Stomach Cramp Tremor Observation of Outstretched Hands: 1= Tremor [place], Not Seen Yawning Observation: 1= 1-2x During Session Anxiety or Irritability: 1=Feels Anxious/Irritable Goose Flesh Skin: 0=Smooth Skin COWS Score: 7 [facility] Progress Note (SOAP) Subjective: feeling better discuss medication assisted treatment program Objective: 03/19/19 15:14 Vital Signs Temperature 97.0 F L 03/19/19 06:00 Pulse Rate 65 03/19/19 09:25 Respiratory Rate 18 03/19/19 09:25 Blood Pressure 103/68 03/19/19 09:25 O2 Sat by Pulse Oximetry (%) Laboratory Last Values WBC 8.8 K/mm3 (4.0-10.0) 03/16/19 15:30 RBC 4.71 M/mm3 (4.00-5.60) 03/16/19 15:30 Hgb 13.9 GM/dL (11.7-16.9) 03/16/19 15:30 Hct 41.4 % (35.4-49) 03/16/19 15:30 MCV 88.0 fl (80-96) 03/16/19 15:30 MCH 29.5 pg (25.7-33.7) 03/16/19 15:30 MCHC 33.5 g/dl (32.0-35.9) 03/16/19 15:30 RDW 13.7 % (11.9-15.9) D 03/16/19 15:30 Plt Count 227 K/MM3 (134-434) 03/16/19 15:30 MPV 9.2 fl (7.5-11.1) D 03/16/19 15:30 Sodium 131 mmol/L (136-145) L 03/16/19 15:30 Potassium 4.3 mmol/L (3.5-5.1) 03/16/19 15:30 Chloride 100 mmol/L (98-107) 03/16/19 15:30 Carbon Dioxide 23 mmol/L (21-32) 03/16/19 15:30 Anion Gap 8 MMOL/L (8-16) 03/16/19 15:30 BUN 31 mg/dL (7-18) H 03/19/19 07:40 Creatinine 1.3 mg/dL (0.55-1.3) 03/16/19 15:30 Est GFR (CKD-EPI)AfAm 73.74 03/16/19 15:30 Est GFR (CKD-EPI)NonAf 63.62 03/16/19 15:30 Random Glucose 91 mg/dL (74-106) 03/16/19 15:30 Calcium 9.3 mg/dL (8.5-10.1) 03/16/19 15:30 Total Bilirubin 0.7 mg/dL (0.2-1) 03/16/19 15:30 AST 22 U/L (15-37) 03/16/19 15:30 ALT 18 U/L (13-61) 03/16/19 15:30 Alkaline Phosphatase 107 U/L (45-117) 03/16/19 15:30 Total Protein 6.8 g/dl (6.4-8.2) 03/16/19 15:30 Albumin 4.0 g/dl (3.4-5.0) 03/16/19 15:30 Urine Color Yellow 03/16/19 23:00 Urine Appearance Clear 03/16/19 23:00 Urine pH 5.0 (5.0-8.0) 03/16/19 23:00 Ur Specific [place] 1.023 (1.010-1.035) 03/16/19 23:00 Urine Protein Negative (NEGATIVE) 03/16/19 23:00 Urine Glucose (UA) Negative (NEGATIVE) 03/16/19 23:00 Urine Ketones 1+ (NEGATIVE) H 03/16/19 23:00 Urine Blood Negative (NEGATIVE) 03/16/19 23:00 Urine Nitrite Negative (NEGATIVE) 03/16/19 23:00 Urine Bilirubin Negative (NEGATIVE) 03/16/19 23:00 Urine Urobilinogen 0.2 mg/dL (0.2-1.0) 03/16/19 23:00 Ur Leukocyte Esterase Negative (NEGATIVE) 03/16/19 23:00 RPR Titer Nonreactive (NONREACTIVE) 03/16/19 15:30 HIV 1&2 Antibody Screen Negative 03/16/19 15:30 HIV P24 Antigen Negative 03/16/19 15:30 lab noted repeat bun continue increase oral fluid 03/19/19 15:15 Assessment: 03/19/19 15:16 withdrawal sx Plan: continue detox
[2019-03-19] MEDS: THIAMINE HCL 100 MG TABLET (FP) PO SCH (22:19)
[2019-03-20] MEDS: chlordiazePOXIDE HCL 10 MG CAPSULE PO SCH ×2 (05:30→18:13)
[2019-03-20] MEDS ORDERED: METHADONE HCL 5 MG TABLET (FOR DETOX USE ONLY) PO ONE (06:00)
[2019-03-20] MEDS ORDERED: METHADONE HCL 10 MG TABLET (FOR DETOX USE ONLY) PO ONE (10:00)
[2019-03-20] MEDS: NICOTINE 21 MG/24 HOURS TOPICAL PATCH TD SCH (10:28)
[2019-03-20] MEDS: PRENATAL VITAMINS W/ FOLIC ACID TABLET (FP) PO SCH (10:28)
--- NOTE | 2019-03-20 14:16 | PN ---
[facility] CI[facility] - CIWA Score Nausea/Vomitin-No Nausea/No Vomiting Muscle Tremors: None Anxiety: 0-No Anxiety, at Ease Agitation: 1-Slight > Activity Paroxysmal Sweats: No Perspiration Orientation: 0-Oriented Tacttile Disturbances: 0-None Auditory Disturbances: 0-None Visual Disturbances: 0-None Headache: 0-None Present CIWA-Ar Total Score: 1 S COWS - Scale Resting Pulse: 2= [place] 101-120 Sweatin= No chills or Flushing Restless Observation: 1= Difficult to Sit Still Pupil Size: 0= Normal to Room Light Bone or Joint Aches: 0= None Runny Nose/ Eye Tearin= None GI Upset > 30mins: 0= None Tremor Observation of Outstretched Hands: 0= None Yawning Observation: 0= None Anxiety or Irritability: 0= None Goose Flesh Skin: 0=Smooth Skin COWS Score: 3 S Progress Note (SOAP) Subjective: Patient denies current Withdrawal / Detox symptoms and reports that he feels well overall at this time. Objective: PATIENT A & O X 3, OBSERVED AMBULATING ON UNIT UNASSISTED. IN NO ACUTE DISTRESS. 03/20/19 14:12 Vital Signs Temperature 96.2 F L 03/20/19 13:09 Pulse Rate 79 03/20/19 13:09 Respiratory Rate 18 03/20/19 13:09 Blood Pressure 121/75 03/20/19 13:09 O2 Sat by Pulse Oximetry (%) Laboratory Tests 03/16/19 03/16/19 03/16/19 15:30 15:30 15:30 WBC 8.8 RBC 4.71 Hgb 13.9 Hct 41.4 MCV 88.0 MCH 29.5 MCHC 33.5 RDW 13.7 D Plt Count 227 MPV 9.2 D Sodium 131 L Potassium 4.3 Chloride 100 Carbon Dioxide 23 Anion Gap 8 BUN 33 H Creatinine 1.3 Est GFR (CKD-EPI)AfAm 73.74 Est GFR (CKD-EPI)NonAf 63.62 Random Glucose 91 Calcium 9.3 Total Bilirubin 0.7 AST 22 ALT 18 Alkaline Phosphatase 107 Total Protein 6.8 Albumin 4.0 Urine Color Urine Appearance Urine pH Ur Specific [place] Urine Protein Urine Glucose (UA) Urine Ketones Urine Blood Urine Nitrite Urine Bilirubin Urine Urobilinogen Ur Leukocyte Esterase RPR Titer HIV 1&2 Antibody Screen Negative HIV P24 Antigen Negative 03/16/19 03/16/19 03/19/19 15:30 23:00 07:40 WBC RBC Hgb Hct MCV MCH MCHC RDW Plt Count MPV Sodium Potassium Chloride Carbon Dioxide Anion Gap BUN 31 H Creatinine Est GFR (CKD-EPI)AfAm Est GFR (CKD-EPI)NonAf Random Glucose Calcium Total Bilirubin AST ALT Alkaline Phosphatase Total Protein Albumin Urine Color Yellow Urine Appearance Clear Urine pH 5.0 Ur Specific [place] 1.023 Urine Protein Negative Urine Glucose (UA) Negative Urine Ketones 1+ H Urine Blood Negative Urine Nitrite Negative Urine Bilirubin Negative Urine Urobilinogen 0.2 Ur Leukocyte Esterase Negative RPR Titer Nonreactive HIV 1&2 Antibody Screen HIV P24 Antigen 03/20/19 07:40 WBC RBC Hgb Hct MCV MCH MCHC RDW Plt Count MPV Sodium Potassium Chloride Carbon Dioxide Anion Gap BUN 28 H Creatinine Est GFR (CKD-EPI)AfAm Est GFR (CKD-EPI)NonAf Random Glucose Calcium Total Bilirubin AST ALT Alkaline Phosphatase Total Protein Albumin Urine Color Urine Appearance Urine pH Ur Specific [place] Urine Protein Urine Glucose (UA) Urine Ketones Urine Blood Urine Nitrite Urine Bilirubin Urine Urobilinogen Ur Leukocyte Esterase RPR Titer HIV 1&2 Antibody Screen HIV P24 Antigen LABS NOTED. Assessment: 03/20/19 14:13 COMPLETION OF DETOX REGIMEN. 03/20/19 14:15 Plan: SINCE PATIENT DENIES CURRENT WITHDRAWAL / DETOX SYMPTOMS AND REPORTS THAT HE FEELS WELL OVERALL, AT PATIENTS REQUEST, HE WAS GRANTED AN EARLY DISCHARGE FROM DETOX UNIT TODAY SO THAT HE MAY PROCEED ON TO AFTERCARE PLAN OF [facility] ([place], [place]), A BED IS CURRENTLY AVAILABLE FOR ADMISSION THERE.
--- NOTE | 2019-03-20 14:26 | DS ---
[facility] Detox Discharge Summary Admission Date: 03/16/19 Discharge Date: 03/20/19 - History Present History: Alcohol Dependence, Cocaine Dependence, Opioid Dependence Additional Comments: PATIENT DENIES CURRENT WITHDRAWAL / DETOX SYMPTOMS AND REPORTS THAT HE FEELS WELL OVERALL AT TIME OF DISCHARGE FROM DETOX UNIT. PATIENT GOING TO [facility] ([email or web address]) FOR AFTERCARE. PATIENT ADVISED TO FOLLOW-UP WITH TRANSMISSION SUPERINTENDENT AFTER DISCHARGE FROM REHAB FOR GENERAL MEDICAL ASSESSMENT AND FOR ELEVATED BUN LEVEL NOTED ON DETOX ADMISSION (AND REPEAT) LABORATORY ASSESSMENT. COPIES OF RESULTS OF ALL LABS DRAWN WHILE ADMITTED FOR DETOX GIVEN TO PATIENT AT TIME OF DISCHARGE FROM DETOX UNIT. PATIENT ADVISED TO INCREASE DAILY PO WATER INTAKE WHILE ADMITTED FOR REHAB. PATIENT VERBALIZED UNDERSTANDING OF ALL RECOMMENDATIONS PRESENTED TO HIM PRIOR TO DISCHARGE FROM DETOX UNIT. BUN WILL BE RE-CHECKED ON 03/23/2019, A FEW DAYS AFTER ADMISSION TO REHAB. PATIENT WAS DISCHARGED FROM DETOX UNIT TO BE TAKEN OVER TO REHAB UNIT IN STABLE MEDICAL CONDITION. Pertinent Past History: Nicotine Dependence, C.O.P.D. (Chronic Emphysema), History Of Hepatitis B, Weight Loss, Depression. - Physical Exam Results Vital Signs: Vital Signs Temperature 96.2 F L 03/20/19 13:09 Pulse Rate 79 03/20/19 13:09 Respiratory Rate 18 03/20/19 13:09 Blood Pressure 121/75 03/20/19 13:09 O2 Sat by Pulse Oximetry (%) Pertinent Admission Physical Exam Findings: WITHDRAWAL SYMPTOMS. Laboratory Tests 03/16/19 03/16/19 03/16/19 15:30 15:30 15:30 WBC 8.8 RBC 4.71 Hgb 13.9 Hct 41.4 MCV 88.0 MCH 29.5 MCHC 33.5 RDW 13.7 D Plt Count 227 MPV 9.2 D Sodium 131 L Potassium 4.3 Chloride 100 Carbon Dioxide 23 Anion Gap 8 BUN 33 H Creatinine 1.3 Est GFR (CKD-EPI)AfAm 73.74 Est GFR (CKD-EPI)NonAf 63.62 Random Glucose 91 Calcium 9.3 Total Bilirubin 0.7 AST 22 ALT 18 Alkaline Phosphatase 107 Total Protein 6.8 Albumin 4.0 Urine Color Urine Appearance Urine pH Ur Specific [place] Urine Protein Urine Glucose (UA) Urine Ketones Urine Blood Urine Nitrite Urine Bilirubin Urine Urobilinogen Ur Leukocyte Esterase RPR Titer HIV 1&2 Antibody Screen Negative HIV P24 Antigen Negative 03/16/19 03/16/19 03/19/19 15:30 23:00 07:40 WBC RBC Hgb Hct MCV MCH MCHC RDW Plt Count MPV Sodium Potassium Chloride Carbon Dioxide Anion Gap BUN 31 H Creatinine Est GFR (CKD-EPI)AfAm Est GFR (CKD-EPI)NonAf Random Glucose Calcium Total Bilirubin AST ALT Alkaline Phosphatase Total Protein Albumin Urine Color Yellow Urine Appearance Clear Urine pH 5.0 Ur Specific [place] 1.023 Urine Protein Negative Urine Glucose (UA) Negative Urine Ketones 1+ H Urine Blood Negative Urine Nitrite Negative Urine Bilirubin Negative Urine Urobilinogen 0.2 Ur Leukocyte Esterase Negative RPR Titer Nonreactive HIV 1&2 Antibody Screen HIV P24 Antigen 03/20/19 07:40 WBC RBC Hgb Hct MCV MCH MCHC RDW Plt Count MPV Sodium Potassium Chloride Carbon Dioxide Anion Gap BUN 28 H Creatinine Est GFR (CKD-EPI)AfAm Est GFR (CKD-EPI)NonAf Random Glucose Calcium Total Bilirubin AST ALT Alkaline Phosphatase Total Protein Albumin Urine Color Urine Appearance Urine pH Ur Specific [place] Urine Protein Urine Glucose (UA) Urine Ketones Urine Blood Urine Nitrite Urine Bilirubin Urine Urobilinogen Ur Leukocyte Esterase RPR Titer HIV 1&2 Antibody Screen HIV P24 Antigen LABS NOTED. - Treatment Hospital Course: Detox Protocol Followed, Detoxed Safely, Responded well, Discharged Condition Good, Rehab Referral Accepted Patient has Accepted a Rehab Referral to: [facility] ([place], [place]). - Medication Discharge Medications: Ambulatory Orders NK [No Known Home Medication] 03/16/19 - Diagnosis (1) Elevated BUN Current Visit: Yes Status: Acute (2) Nicotine dependence Current Visit: Yes Status: Acute Qualifiers: Nicotine product type: cigarettes Substance use status: in withdrawal Qualified Code(s): F17.213 - Nicotine dependence, cigarettes, with withdrawal (3) Alcohol dependence with uncomplicated withdrawal Current Visit: Yes Status: Acute (4) Opioid dependence with withdrawal Current Visit: Yes Status: Acute (5) COPD (chronic obstructive pulmonary disease) Current Visit: Yes Status: Chronic Qualifiers: COPD type: emphysema Emphysema type: unspecified Qualified Code(s): J43.9 - Emphysema, unspecified (6) Cocaine dependence Current Visit: Yes Status: Acute Qualifiers: Substance use status: uncomplicated Qualified Code(s): F14.20 - Cocaine dependence, uncomplicated (7) Hepatitis B Current Visit: Yes Status: Suspected Qualifiers: Viral hepatitis chronicity: unspecified Hepatic coma status: without hepatic coma Hepatitis delta agent presence: without delta-agent Qualified Code(s): B19.10 - Unspecified viral hepatitis B without hepatic coma - AMA Did Patient Leave Against Medical Advice: No
--- NOTE | 2019-03-20 15:03 | HP ---
[facility] Rehab Assess/Revision - Admission History Admitted to Rehab from: [facility] Date of Admission to Rehab: 03/20/2019 - Vital signs Vital Signs: Vital Signs Period Temp Pulse Resp BP Sys/Gonzalez Pulse Ox Last 24 Hr 96.2 F-97.3 F 72-103 18-20 110-121/75-81 - Findings Detox History & Physical reviewed: Yes Concur with findings: Yes Comments/Additional Findings: PATIENT'S MEDICAL / MEDICATION HISTORY REVIEWED PRIOR TO DISCHARGE FROM DETOX UNIT. BUN LEVEL NOTED TO BE ELEVATED ON ADMISSION AND REPEAT DURING DETOX ADMISSION. LEVEL SLOWLY DECREASED OVER REPEAT ASSESSMENTS. PATIENT ENCOURAGED TO INCREASE DAILY PO WATER INTAKE WHILE ADMITTED FOR REHAB. PATIENT VERBALIZED UNDERSTANDING OF RECOMMENDATION. BUN TO BE RE-CHECKED ON 03/23/2019. PATIENT WAS DISCHARGED FROM DETOX UNIT TO BE TAKEN OVER TO REHAB UNIT IN STABLE MEDICAL CONDITION. Inpatient Rehab Admission - Rehab Decision to Admit Inpatient rehab admission?: Yes - Initial Determination Are CD services needed?: Yes Free of communicable disease: Yes Not in need of hospitalization: Yes - Rehab Admission Criteria Previous failed treatment: Yes Poor recovery environment: Yes Comorbidities: Yes Lacks judgement: No Patient is meeting Inpatient Rehab admission criteria:: Yes
[2019-03-20] MEDS: THIAMINE HCL 100 MG TABLET (FP) PO SCH (22:20)
[2019-03-21] MEDS ORDERED: METHADONE HCL 5 MG TABLET (FOR DETOX USE ONLY) PO ONE (06:00)
[2019-03-21] MEDS: PRENATAL VITAMINS W/ FOLIC ACID TABLET (FP) PO SCH (10:51)
[2019-03-21] MEDS: NICOTINE 21 MG/24 HOURS TOPICAL PATCH TD SCH (10:51)
[2019-03-21] MEDS ORDERED: FLU VACCINE QUAD 60 MCG/0.5 ML (MDV 18-19) IM ONE (12:00)
--- NOTE | 2019-03-21 13:31 | PN ---
[facility] Progress Note Note: informed by nurse that patient would like to see doctor patient did not want to see be evaluated when the mortgage loan underwriter present on the unit Vital Signs Temperature 97.4 F L 03/21/19 07:08 Pulse Rate 70 03/21/19 07:08 Respiratory Rate 18 03/21/19 07:08 Blood Pressure 104/79 03/21/19 07:08 O2 Sat by Pulse Oximetry (%) close monitoring
[2019-03-21] MEDS: THIAMINE HCL 100 MG TABLET (FP) PO SCH (21:51)
[2019-03-22] MEDS: PRENATAL VITAMINS W/ FOLIC ACID TABLET (FP) PO SCH (10:53)
[2019-03-22] MEDS: NICOTINE 21 MG/24 HOURS TOPICAL PATCH TD SCH (10:53)
[2019-03-22] MEDS: THIAMINE HCL 100 MG TABLET (FP) PO SCH (21:49)
--- NOTE | 2019-03-23 09:41 | PN ---
[facility] Progress Note Note: PT STATED A C/O SHARP MID ABDOMINAL PAIN /ABSCESS. STATES HE WANTS TO BE CHECKED OUT BECAUSE "THAT'S HOW IT ALWAYS HAPPENS AND THEY SAID IT WILL KEEP COMING BACK. I THINK I NEED A CATSCAN". REPORTS PAIN IS 7/10 SCALE. DENIES CONSTIPATION, LAST BM THIS MORNING AND WNL. DENIES NAUSEA, VOMITING, OR DIARRHEA. DENIES CHILLS/FEVER. PT REPORTS HX OF 17 ABDOMINAL SURGERIES FROM 2016 TO 12/2018. REPORTS FIRST 16 SURGERIES WERE IN [facility], [place] [address] [place] [address] PT ALSO REPORTS HEAD SURGERY IN 2017 TO TAKE OUT AN ARTERY FOR HIS STOMACH SURGICAL REPAIR PROCEDURE. PT REPORTS COLOSTOMY REVERSAL TO ILEOSTOMY IN 12/2017 AND D/C'D IN 12/[address] [facility]. PT ALSO REPORTS BEING ON DIALYSIS X >4 MONTHS 3 TIMES A WEEK FROM 09/2017 TO 04/2018.ELEVATED BUN WHILE ON DETOX UNIT SLIGHTLY DECREASED BELOW. PT REPORTS HIS PCP IS HIS SURGEON DR. CARMINE CHIN AT [place], [place]. Vital Signs (72 hours) 03/20/19 03/20/19 03/21/19 13:09 16:20 00:30 Temperature 96.2 F L 97.7 F Pulse Rate 79 77 Respiratory 18 18 18 Rate Blood Pressure 121/75 109/76 03/21/19 03/21/19 03/22/19 03:30 07:08 00:30 Temperature 97.4 F L Pulse Rate 70 Respiratory 18 18 18 Rate Blood Pressure 104/79 03/22/19 03/22/19 03/23/19 03:30 05:41 00:30 Temperature 97.7 F Pulse Rate 62 Respiratory 18 18 18 Rate Blood Pressure 119/78 03/23/19 03/23/19 03:30 07:21 Temperature 97.7 F Pulse Rate 65 Respiratory 18 18 Rate Blood Pressure 109/74 CURRENT VS BP118/87 P 66 RR 18 T 97.2 Laboratory Tests 03/16/19 03/16/19 03/16/19 15:30 15:30 15:30 WBC 8.8 RBC 4.71 Hgb 13.9 Hct 41.4 MCV 88.0 MCH 29.5 MCHC 33.5 RDW 13.7 D Plt Count 227 MPV 9.2 D Sodium 131 L Potassium 4.3 Chloride 100 Carbon Dioxide 23 Anion Gap 8 BUN 33 H Creatinine 1.3 Est GFR (CKD-EPI)AfAm 73.74 Est GFR (CKD-EPI)NonAf 63.62 Random Glucose 91 Calcium 9.3 Total Bilirubin 0.7 AST 22 ALT 18 Alkaline Phosphatase 107 Total Protein 6.8 Albumin 4.0 Urine Color Urine Appearance Urine pH Ur Specific [place] Urine Protein Urine Glucose (UA) Urine Ketones Urine Blood Urine Nitrite Urine Bilirubin Urine Urobilinogen Ur Leukocyte Esterase RPR Titer HIV 1&2 Antibody Screen Negative HIV P24 Antigen Negative 03/16/19 03/16/19 03/19/19 15:30 23:00 07:40 WBC RBC Hgb Hct MCV MCH MCHC RDW Plt Count MPV Sodium Potassium Chloride Carbon Dioxide Anion Gap BUN 31 H Creatinine Est GFR (CKD-EPI)AfAm Est GFR (CKD-EPI)NonAf Random Glucose Calcium Total Bilirubin AST ALT Alkaline Phosphatase Total Protein Albumin Urine Color Yellow Urine Appearance Clear Urine pH 5.0 Ur Specific [place] 1.023 Urine Protein Negative Urine Glucose (UA) Negative Urine Ketones 1+ H Urine Blood Negative Urine Nitrite Negative Urine Bilirubin Negative Urine Urobilinogen 0.2 Ur Leukocyte Esterase Negative RPR Titer Nonreactive HIV 1&2 Antibody Screen HIV P24 Antigen 03/20/19 07:40 WBC RBC Hgb Hct MCV MCH MCHC RDW Plt Count MPV Sodium Potassium Chloride Carbon Dioxide Anion Gap BUN 28 H Creatinine Est GFR (CKD-EPI)AfAm Est GFR (CKD-EPI)NonAf Random Glucose Calcium Total Bilirubin AST ALT Alkaline Phosphatase Total Protein Albumin Urine Color Urine Appearance Urine pH Ur Specific [place] Urine Protein Urine Glucose (UA) Urine Ketones Urine Blood Urine Nitrite Urine Bilirubin Urine Urobilinogen Ur Leukocyte Esterase RPR Titer HIV 1&2 Antibody Screen HIV P24 Antigen CARDIAC: S1 S2 RRR (-) LUNGS:CTA ABDOMEN: +BS,PAIN ABOVE UMBILICUS AND RIGHT SIDE AT OLD HEALED STOMA SITE. GUARDED ON PALPATION. NO OPEN SKIN AREA NOTED EXCEPT OLD SX SCAR RIGHT SIDE. EXTREMITIES:NO E/C/C. A:STATED ABDOMINAL PAIN/ABSCESS S/P MULTIPLE ABDOMINAL SURGERIES S/P PERFORATED DIVERTICULITIS S/P COLOSTOMY PLAN:TRANSFER TO [facility] FOR EVALUATION AND TREATMENT. PT MAY RETURN TO COMPLETE REHAB IF MEDICALLY CLEARED TO CONTINUE REHAB. SPOKE TO DR. WISDOM AT THE [facility] ER AND HAS AGREED TO ACCEPT THE PATIENT.
[2019-03-23] MEDS: PRENATAL VITAMINS W/ FOLIC ACID TABLET (FP) PO SCH (10:04)
[2019-03-23] MEDS: NICOTINE 21 MG/24 HOURS TOPICAL PATCH TD SCH (10:04)
--- NOTE | 2019-03-23 17:15 | PN ---
[facility] Progress Note Note: Returned from ED via ambulance. ED report states no evidence of bowel obstruction or acute pathology within the abdomen or pelvis. Patient presents alert and oriented. Abd soft/non-tender. BS(+). Patient returned to rehab and continuation of current medications and treatment regimen.
[2019-03-23] MEDS: THIAMINE HCL 100 MG TABLET (FP) PO SCH (22:01)
[2019-03-24] MEDS ORDERED: COLLOIDAL OATMEAL 1 BAR EACH TP PRN (09:40)
[2019-03-24] MEDS: NICOTINE 21 MG/24 HOURS TOPICAL PATCH TD SCH (11:17)
[2019-03-24] MEDS: PRENATAL VITAMINS W/ FOLIC ACID TABLET (FP) PO SCH (11:17)
--- NOTE | 2019-03-24 12:00 | PN ---
S Progress Note Note: PT RETURNED LAST EVENING FROM THE ER. PT IS OOB THIS MORNING PARTICIPATING IN UNIT ACTIVITIES. NO C/O ABDOMINAL PAIN SINCE ON RETURNING TILL CURRENTLY. ALERT O X 3. PT WAS GIVEN A COPY OF DISCHARGE INSTRUCTION BELOW: - Patient Instructions Printed Discharge Instructions: DI for Abdominal Pain-Adult Additional Instructions: You were seen in the Emergency Department for evaluation abdominal pain. Your labs were unremarkable and your CT scan did not show any acute pathology. Review the handout provided at discharge. Follow up with your surgeon and your primary care provider. Return to the Emergency Department if you develop fevers/ chills, chest pain, trouble breathing, vomiting, worsening pain, blood in your stool, worsening symptoms, or any new/concerning symptoms. - Post Discharge Activity Vital Signs - 24 hr 03/23/19 03/24/19 03/24/19 18:24 03:30 08:04 Temperature 98.0 F 97.8 F Pulse Rate 81 69 Respiratory 18 18 18 Rate Blood Pressure 129/80 110/71 PLAN:CONTINUE REHAB/MONITOR PT F/U WITH MEDICAL MANAGEMENT WITH PCP/SURGEON AFTER REHAB INFORM STAFF OF ANY FURTHER ACUTE DISCOMFORT.
[2019-03-24] MEDS: METHYL SALICYLATE/MENTHOL OINT 30 GM TUBE TP SCH ×2 (12:05→21:49)
[2019-03-24] MEDS: THIAMINE HCL 100 MG TABLET (FP) PO SCH (21:49)
[2019-03-25] MEDS: NICOTINE 21 MG/24 HOURS TOPICAL PATCH TD SCH (10:29)
[2019-03-25] MEDS: METHYL SALICYLATE/MENTHOL OINT 30 GM TUBE TP SCH ×2 (10:29→21:16)
[2019-03-25] MEDS: PRENATAL VITAMINS W/ FOLIC ACID TABLET (FP) PO SCH (10:30)
--- NOTE | 2019-03-25 18:45 | PN ---
S Progress Note Note: pt c/o of left side pain/discomfort; last BP 129/76, HR 97 temp 97.3HR. Abdomen assessed +BS all four quadrants with gas noted. Pt encouraged to walked around the unit for gut mobility. gas x ordered, motrin 800mg prn and lidocaine patch to apply to left side. pt was re-iterated that his ct scan was unremarkable no findings were found. pt agreed with new plan. will continue to monitor.
[2019-03-25] MEDS: IBUPROFEN 400 MG TABLET (FP) PO PRN (18:56)
[2019-03-25] MEDS: LIDOCAINE 5% TOPICAL PATCH TP SCH (18:57)
[2019-03-25] MEDS: SIMETHICONE 80 MG TAB.CHEW (FP) PO PRN (19:17)
[2019-03-25] MEDS: THIAMINE HCL 100 MG TABLET (FP) PO SCH (21:13)
[2019-03-25] MEDS: LIDOCAINE PATCH REMOVAL MC SCH (21:15)
[2019-03-26] MEDS: IBUPROFEN 400 MG TABLET (FP) PO PRN (03:43)
[2019-03-26] MEDS: LIDOCAINE 5% TOPICAL PATCH TP SCH (10:50)
[2019-03-26] MEDS: METHYL SALICYLATE/MENTHOL OINT 30 GM TUBE TP SCH ×2 (10:50→21:55)
[2019-03-26] MEDS: PRENATAL VITAMINS W/ FOLIC ACID TABLET (FP) PO SCH (10:50)
[2019-03-26] MEDS: NICOTINE 21 MG/24 HOURS TOPICAL PATCH TD SCH (10:50)
[2019-03-26] MEDS: SIMETHICONE 80 MG TAB.CHEW (FP) PO PRN (10:52)
[2019-03-26] MEDS: THIAMINE HCL 100 MG TABLET (FP) PO SCH (21:56)
[2019-03-26] MEDS: LIDOCAINE PATCH REMOVAL MC SCH (21:56)
[2019-03-27] MEDS: METHYL SALICYLATE/MENTHOL OINT 30 GM TUBE TP SCH ×2 (10:31→22:14)
[2019-03-27] MEDS: NICOTINE 21 MG/24 HOURS TOPICAL PATCH TD SCH (10:32)
[2019-03-27] MEDS: LIDOCAINE 5% TOPICAL PATCH TP SCH (10:32)
[2019-03-27] MEDS: PRENATAL VITAMINS W/ FOLIC ACID TABLET (FP) PO SCH (10:33)
[2019-03-27] MEDS: IBUPROFEN 400 MG TABLET (FP) PO PRN ×2 (10:34→21:22)
--- NOTE | 2019-03-27 13:23 | PN ---
S Progress Note Note: PT C/O PAIN AT SITE OF COLOSTOMY CLOSURE STATING "WHEN I PRESS ON IT". PT DENIES ANY OTHER FORM OF PAIN WHEN NOT TOUCHING SCAR AREA. DENIES N/V/D. REPORTS +BM. OOB AMBULATING BACK AND FORTH THE HALLWAYS, GROUPS AND HIS ROOM. PT HAD A NORMAL BREAKFAST AND LUNCH WITH NO DISCOMFORT. ALERT O X 3. Vital Signs - 24 hr 03/27/19 03/27/19 03/27/19 00:30 03:30 06:39 Temperature 97.8 F Pulse Rate 74 Respiratory 16 16 18 Rate Blood Pressure 121/72 03/27/19 11:18 Temperature 97.8 F Pulse Rate 76 Respiratory 18 Rate Blood Pressure 118/76 ABDOMEN:SOFT,+BS; MILD SENSITIVE SPOT ON RIGHT ABDOMINAL SCAR(NO REDNESS OR SWELLING). NO PAIN ON PALPATION ON ALL QUADRANTS. S/P MULTIPLE ABDOMINAL SURGERY. PLAN:MONITOR PT AND FOLLOW UP NEEDED.
--- NOTE | 2019-03-27 20:37 | PN ---
[facility] Progress Note Note: C/o new onset (L) sided chest pain which began at 1930 hours unrelated to activity. States pain sharp, getting worse and is now a "10". States continues to have RUQ abdominal pain. Seen at [facility] ED on 03/23/19, for abdominal pain. Patient alert and oriented. O2 Sat = 98%. Heart rate regular rhythm - @ 60. Vital Signs - 24 hr 03/27/19 03/27/19 03/27/19 00:30 03:30 06:39 Temperature 97.8 F Pulse Rate 74 Respiratory 16 16 18 Rate Blood Pressure 121/72 03/27/19 03/27/19 11:18 19:33 Temperature 97.8 F 97.8 F Pulse Rate 76 70 Respiratory 18 18 Rate Blood Pressure 118/76 118/74 EKG obtained and shows HR:61; Sinus Rhythm w/ 1st Degree AV Block. When compared to EKG's of 05/2018, except for slightly slower HR (80's to 60/s), there are no significant change. Assessment: New Onset Chest Pain Opioid dependence in early remission (f11.21) Alcohol use disorder in early remission(f10.21) Cocaine dependence in early remission Nicotine use disorder Hx: hemicolectomy w/ multiple abdominal surgeries. Plan: Send to [facility] ED for evaluation of chest pain (via ambulance) Report given to Dr. Chen.
[2019-03-27] MEDS: LIDOCAINE PATCH REMOVAL MC SCH (22:14)
[2019-03-27] MEDS: THIAMINE HCL 100 MG TABLET (FP) PO SCH (22:15)
[2019-03-28] MEDS: PRENATAL VITAMINS W/ FOLIC ACID TABLET (FP) PO SCH (09:26)
[2019-03-28] MEDS: IBUPROFEN 400 MG TABLET (FP) PO PRN (09:26)
[2019-03-28] MEDS: LIDOCAINE 5% TOPICAL PATCH TP SCH (09:27)
[2019-03-28] MEDS: METHYL SALICYLATE/MENTHOL OINT 30 GM TUBE TP SCH ×2 (09:29→21:50)
[2019-03-28] MEDS: NICOTINE 21 MG/24 HOURS TOPICAL PATCH TD SCH (09:29)
[2019-03-28] MEDS: LIDOCAINE PATCH REMOVAL MC SCH (21:51)
[2019-03-28] MEDS: THIAMINE HCL 100 MG TABLET (FP) PO SCH (21:51)
[2019-03-29 07:20] VITALS: BP 121/84; PULSE 74; TEMP 97.8
[2019-03-29] MEDS: METHYL SALICYLATE/MENTHOL OINT 30 GM TUBE TP SCH (10:39)
[2019-03-29] MEDS: LIDOCAINE 5% TOPICAL PATCH TP SCH (10:39)
[2019-03-29] MEDS: NICOTINE 21 MG/24 HOURS TOPICAL PATCH TD SCH (10:40)
[2019-03-29] MEDS: PRENATAL VITAMINS W/ FOLIC ACID TABLET (FP) PO SCH (10:40)
--- NOTE | 2019-03-29 15:41 | EKG ---
Test Reason : Blood Pressure : / mmHG Vent. Rate : 070 BPM Atrial Rate : 070 BPM P-R Int : 222 ms QRS Dur : 096 ms QT Int : 380 ms P-R-T Axes : 059 087 075 degrees QTc Int : 410 ms SINUS RHYTHM WITH 1ST DEGREE A-V BLOCK OTHERWISE NORMAL ECG WHEN COMPARED WITH ECG OF 20-JUN-2018 13:21, NO SIGNIFICANT CHANGE WAS FOUND Confirmed by MOHAN CROSS MD ([id number]) on 03/29/2019 3:40:39 PM Referred By: Confirmed By:MOHAN CROSS MD
--- NOTE | 2019-03-29 18:01 | PN ---
S Progress Note Note: pt educated on risks , insists on leaving AMA , states " I want to smoke and I want to see my GF " . Reports he is staying @ [facility] prison . Vital Signs - 24 hr 03/29/19 03/29/19 03/29/19 00:30 03:30 07:20 Temperature 97.8 F Pulse Rate 74 Respiratory 18 18 18 Rate Blood Pressure 121/84
== END 2019-03-29 18:12 | disposition left against medical advice (07) | DRG 894 ==
LOC: YASAS 09:51 → Y3N 15:30 → Y5N 03-20 15:10
PROVIDERS: ADMIT Surgery; ATTEND Neuromusculoskeletal Medicine & OMM
PROC: HZ2ZZZZ Detoxification Services for Substance Abuse Treatment (ICD-10-PCS; 2019-03-16)
PROC: HZ42ZZZ Group Counseling for Substance Abuse Treatment, Cognitive-Behavioral (ICD-10-PCS; principal; 2019-03-20)
DX: F11.20 Opioid dependence, uncomplicated (principal); F14.20 Cocaine dependence, uncomplicated; B19.10 Unspecified viral hepatitis B without hepatic coma; F10.20 Alcohol dependence, uncomplicated; F17.210 Nicotine dependence, cigarettes, uncomplicated; F32.9 Major depressive disorder, single episode, unspecified; J43.9 Emphysema, unspecified; R94.4 Abnormal results of kidney function studies; R63.4 Abnormal weight loss; Z68.22 Body mass index [BMI] 22.0-22.9, adult; R07.9 Chest pain, unspecified; R10.9 Unspecified abdominal pain
CPT/HCPCS: 36415; 80053; 81003; 84520; 85027; 86593; 87389; 93005; 93010

== ENCOUNTER 2019-03-23 11:42 | Emergency (ER) | payer SELFPAY ==
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
[2019-03-23 12:24] VITALS: BMI 41.1
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
[2019-03-23 14:03] LABS: BASO % 0.3 % (0-2.0); HEMOGLOBIN 14.5 GM/dL (11.7-16.9); LYMPH % 24.5 % (8-40); MCH 29.1 pg (25.7-33.7); MCHC 32.9 g/dl (32.0-35.9); MEAN CELL VOLUME 88.5 fl (80-96); MEAN PLT VOLUME 8.8 fl (7.5-11.1); MONO % 5.3 % (3.8-10.2); NEUT % 66.9 % (42.8-82.8); PLATELET COUNT 236 K/MM3 (134-434); RBC 4.97 M/mm3 (4.00-5.60); RDW 13.9 % (11.9-15.9); WHITE BLOOD COUNT 7.6 K/mm3 (4.0-10.0)
[2019-03-23 14:30] LABS: ALBUMIN 3.7 g/dl (3.4-5.0); BILIRUBIN,TOTAL 0.2 mg/dL (0.2-1); CALCIUM 9.5 mg/dL (8.5-10.1); CREATININE 1.1 mg/dL (0.55-1.3); POTASSIUM 4.9 mmol/L (3.5-5.1); TOT PROT 7.1 g/dl (6.4-8.2)
[2019-03-23 16:12] VITALS: BP 120/85; PULSE 72; TEMP 98.1
--- NOTE | 2019-03-29 15:19 | EKG ---
Test Reason : Blood Pressure : / mmHG Vent. Rate : 061 BPM Atrial Rate : 061 BPM P-R Int : 270 ms QRS Dur : 102 ms QT Int : 400 ms P-R-T Axes : 057 080 073 degrees QTc Int : 402 ms SINUS RHYTHM WITH 1ST DEGREE A-V BLOCK OTHERWISE NORMAL ECG WHEN COMPARED WITH ECG OF 20-JUN-2018 13:21, NO SIGNIFICANT CHANGE WAS FOUND Confirmed by MOHAN CROSS MD ([id number]) on 03/29/2019 3:18:42 PM Referred By: Confirmed By:MOHAN CROSS MD
== END 2019-03-23 16:47 | disposition home or self-care (01) ==
LOC: JER 11:42
DX: R10.33 Periumbilical pain (principal); F11.10 Opioid abuse, uncomplicated; F14.10 Cocaine abuse, uncomplicated; Z98.890 Other specified postprocedural states; Z93.3 Colostomy status; Z90.49 Acquired absence of other specified parts of digestive tract
CPT/HCPCS: 36415; 74177-TC; 80053; 83690; 85025; 93005; 93010; 99282-25

== ENCOUNTER 2019-03-27 21:49 | Emergency (ER) | payer OTHER | END 2019-03-28 00:11 | LOC: JER 03-28 00:11 ==

== ENCOUNTER 2019-06-08 13:36 | Inpatient (IN) | payer OTHER ==
--- NOTE | 2019-06-08 18:42 | HP ---
"COWS - Scale Resting Pulse: 1= [place] 81-100 Sweatin=Flushed/Facial Moisture Restless Observation: 1= Difficult to Sit Still Pupil Size: 2= Moderately Dilated (Pupils = 4 mm) Bone or Joint Aches: 1= Mild Discomfort Runny Nose/ Eye Tearin= Nasal Congestion GI Upset > 30mins: 2= Nausea/Diarrhea (DFiarrhea w/o nausea) Tremor Observation: 4= Gross Tremor/Twitching Yawning Observation: 0= None Anxiety or Irritability: 1=Feels Anxious/Irritable Goose Flesh Skin: 0=Smooth Skin COWS Score: 15 CIWA Score Nausea/Vomitin-No Nausea/No Vomiting Muscle Tremors: 4-Moderate,w/Arms Extend Anxiety: 1-Mildly Anxious Agitation: 1-Slight > Activity Paroxysmal Sweats: 3 (Increased facial moisture) Orientation: 0-Oriented Tacttile Disturbances: 0-None Auditory Disturbances: 0-None Visual Disturbances: 0-None Headache: 0-None Present CIWA-Ar Total Score: 9 - Admission Criteria OAS Guidelines: Admission for Medically Managed Detox: Requires at least one of the followin. CIWA greater than 12 2. Seizures within the past 24 hours 3. Delirium tremens within the past 24 hours 4. Hallucinations within the past 24 hours 5. Acute intervention needed for co occurring medical disorder 6. Acute intervention needed for co occurring psychiatric disorder 7. Severe withdrawal that cannot be handled at a lower level of care (continued vomiting, continued diarrhea, abnormal vital signs) requiring intravenous medication and/or fluids 8. Patient presents the following: Acute intervention needed for co-occurring med or psych disorder Admission Criteria Met: Admission criteria met Admission ROS [facility] Chief Complaint: Having withdrawal from heroin and alcohol. Allergies/Adverse Reactions: Allergies Allergy/AdvReac Type Severity Reaction Status Date / Time Fish Containing Products Allergy Severe Rash Verified 06/08/19 19:44 Penicillins Allergy Severe Rash Verified 06/08/19 19:44 shellfish derived Allergy Severe Rash Verified 06/08/19 19:44 seafood Allergy Severe Rash Uncoded 06/08/19 19:44 History of Present Illness: 49 years old presents w/ heroin and alcohol withdrawal and seeking detox. Patient states was in [facility] for one day for detox on 06/02 and states did not fill a prescription. Last rehab @ [facility] 03/16/19 to 03/29/19 Utox: positive for JUNO/OPI/FEN/BZO Heroin use began at age 40. States current use is 7-10 bags daily x years. Last used this am. Hx 13 overdoses. Last 1.5 yrs ago. Has a Narcan kit @ home. Denies seizures or blackouts. Cocaine/Crack use began at age 19. States last used 06/07/19 Alcohol use since age 23. State currently drinks 3 - 1/2 pints 3x/wk. Last drink 06/07/19. Nicotine use began at age 6. Smokes 1 PPD. Benzo - denies use. PMHx: Hepatitis B; 02/2019 EKG @ [facility]. MHHx: Sadness. Denies thoughts of harming self or others. SHx: Homeless. Unemployed. Longest sobriety 2 years in 2003. Patient Name: Nnamdi Saxena Date: 1970 Address: [address] [place] [address] Sex: Male Rx Written Rx Dispensed Drug Quantity Days Supply Prescriber Name 06/02/2019 06/02/2019 suboxone 8 mg-2 mg sl film 9 3 LaksPhan MD 06/02/2019 06/02/2019 chlordiazepoxide 10 mg capsule 35 3 LaksPhan MD 04/15/2019 04/15/2019 suboxone 4 mg-1 mg sl film 3 1 LaksPhan MD 04/09/2019 04/09/2019 suboxone 8 mg-2 mg sl film 3 1 LaksPhan MD 04/06/2019 04/06/2019 suboxone 4 mg-1 mg sl film 6 2 LaksPhan MD 04/03/2019 04/03/2019 suboxone 8 mg-2 mg sl film 9 3 LaksPhan MD 04/03/2019 04/03/2019 chlordiazepoxide 10 mg capsule 36 4 LaksPhan MD Search Terms: Nnamdi Saxena, 1970 Search Date: 06/08/2019 06:47:08 PM States Searched: [place], [place], [place], [place], [place], [place], [place] The Drug Utilization Report below displays the controlled substance prescriptions, if any, that were dispensed in the indicated state(s). The information displayed on this report is compiled from requests submitted to other states' PMPs, and accurately reflects the information as returned by them. Blank gregory indicate data not provided by other state. This report was requested by: Melvaherve Bales | Reference #: [id number] Exam Limitations: No Limitations - Ebola screening Have you traveled outside of the country in the last 21 days: No Have you had contact with anyone from an Ebola affected area: No Have you been sick,other than usual withdrawal symptoms: No (Denies recent measles exposure) Do you have a fever: No - Review of Systems Constitutional: Chills, Diaphoresis, Changes in sleep (Difficulty staying asleep ) EENT: reports: Nose Congestion Respiratory: reports: No Symptoms reported Cardiac: reports: No Symptoms Reported GI: reports: Diarrhea (watery, brown x 3 episodes today.) : reports: No Symptoms Reported Musculoskeletal: reports: Back Pain (r/t withdrawal) Integumentary: reports: Lesions (Sore (R) index finger x 12 days as result smoking crack) Endocrine: reports: No Symptoms Reported Hematology: reports: No Symptoms Reported Psychiatric: reports: Judgement Intact, Orientated x3, Anxious Patient History - Patient Medical History Hx Anemia: No Hx Asthma: No Hx Chronic Obstructive Pulmonary Disease (COPD): Yes Hx Cancer: No Hx Cardiac Disorders: No Hx Congestive Heart Failure: No Hx Hypertension: No Hx Hypercholesterolemia: No Hx Pacemaker: No HX Cerebrovascular Accident: No Hx Seizures: No Hx Dementia: No Hx Diabetes: No Hx Gastrointestinal Disorders: No Hx Liver Disease: Yes (Hep B) Hx Genitourinary Disorders: No Hx Sexually Transmitted Disorders: No Hx Renal Disease (ESRD): No Hx Thyroid Disease: No Hx Human Immunodeficiency Virus (HIV): No (last 2017 negative) Hx Hepatitis C: No Hx Depression: Yes Hx Suicide Attempt: No Hx Bipolar Disorder: No Hx Schizophrenia: No - Patient Surgical History Past Surgical History: Yes Hx Neurologic Surgery: No Hx Cataract Extraction: No Hx Cardiac Surgery: No Hx Lung Surgery: No Hx Breast Surgery: No Hx Breast Biopsy: No Hx Abdominal Surgery: Yes (s/p perforated diverticulitis, s/p colostomy [facility] ) Hx Appendectomy: No Hx Cholecystectomy: No Hx Genitourinary Surgery: No Hx Section: No Hx Orthopedic Surgery: No Other Surgical History: cysts removal Anesthesia Reaction: No - PPD History Previous Implant?: Yes Documented Results: Negative w/proof Implanted On Prior [facility] Admission?: Yes Date: 06/05/18 Results: 0.0mm PPD to be Administered?: No - Smoking Cessation Smoking history: Current every day smoker Have you smoked in the past 12 months: No Aproximately how many cigarettes per day: 20 Hx Chewing Tobacco Use: No Initiated information on smoking cessation: Yes 'Breaking Loose' booklet given: 06/08/19 - Substance & Tx. History Hx Alcohol Use: Yes Hx Substance Use: Yes Substance Use Type: Alcohol, Cocaine, Heroin Hx Substance Use Treatment: Yes (detox, rehab) - Substances abused Heroin Substance route: Inhalation Frequency: Daily Amount used: 30 bags Age of first use: 40 Date of last use: 03/15/19 Alcohol Substance route: Oral Frequency: Daily Amount used: 1/2 pint vodka/ 6 pk of 24 ozs of beer Age of first use: 16 Date of last use: 03/15/19 Crack Substance route: Smoking Frequency: Daily Amount used: $100 Age of first use: 23 Date of last use: 03/15/19 Family Disease History - Family Disease History Family Disease History: Heart Disease: Father (cocaine), Mother (alcoholism), CA : Brother (colon), Sister (lung ), Other: Father, Mother Admission Physical Exam [facility] - Physical General Appearance: Yes: Nourished, Mild Distress, Sweating (Increased facial moisture), Anxious HEENTM: Yes: EOMI (Jerking movement of eyes upon lateral gaze), Hearing grossly Normal, Normocephalic, Normal Voice, RAHEL (Pupils = 4 mm), Pharynx Normal, Nasal Congestion Respiratory: Yes: Lungs Clear, Normal Breath Sounds, No Respiratory Distress Neck: Yes: No masses,lesions,Nodules, Supple Breast: Yes: Breast Exam Deferred Cardiology: Yes: Regular Rhythm, Regular Rate, S1, S2 Abdominal: Yes: Non Tender, Soft, Increased Bowel Sounds Genitourinary: Yes: Within Normal Limits Back: Yes: Normal Inspection Musculoskeletal: Yes: full range of Motion, Gait Steady Extremities: Yes: Normal Capillary Refill, Tremors Neurological: Yes: wool hat finisher II-XII NML intact (Jerking movement of eyes upon lateral gaze), Fully Oriented, Alert, Motor Strength 5/5 Integumentary: Yes: Normal Color, Warm, Diaphoresis (Increased facial moisture) , Moist (Moistness, malodor between toes. (L) foot > (R).), Other (Multiple lesions on fingers r/t lu from smoking crack. No increased erythema. Healings abrasions on head, (R) arm (R) knee) Lymphatic: Yes: Within Normal Limits - Diagnostic (1) Superficial burn of finger Current Visit: Yes Status: Chronic Qualifiers: Encounter type: subsequent encounter Laterality: unspecified laterality Qualified Code(s): T23.129D - Burn of first degree of unspecified single finger (nail) except thumb, subsequent encounter Comment: Lu on tips of fingers both hands r/t smoking crack (2) Tinea pedis Current Visit: Yes Status: Chronic Qualifiers: Laterality: bilateral Qualified Code(s): B35.3 - Tinea pedis (3) Nystagmus Current Visit: Yes Status: Acute (4) Alcohol dependence with uncomplicated withdrawal Current Visit: Yes Status: Acute (5) Opioid dependence with withdrawal Current Visit: Yes Status: Acute (6) Cocaine dependence Current Visit: Yes Status: Chronic Qualifiers: Substance use status: uncomplicated Qualified Code(s): F14.20 - Cocaine dependence, uncomplicated (7) Nicotine dependence Current Visit: Yes Status: Chronic Qualifiers: Nicotine product type: cigarettes Substance use status: uncomplicated Qualified Code(s): F17.210 - Nicotine dependence, cigarettes, uncomplicated (8) Multiple abrasions Current Visit: Yes Status: Acute Comment: A few days old Cleared for Admission [facility] - Detox or Rehab [facility] Level of Care: Medically Managed Detox Regimen/Protocol: Methadone/Valium Claeared for Rehab Admission: No Breathalyzer - Breathalyzer Breathalyzer: 0 Urine Drug Screen - Test Device Lot number: [id number] Expiration date: 11/27/20 - Results Drug screen NEGATIVE: No Urine drug screen results: JUNO-Cocaine, MOP-Opiates, OXY-Oxycodone Inpatient Rehab Admission - Rehab Decision to Admit Inpatient rehab admission?: No"
[2019-06-08] MEDS ORDERED: cloNIDine HCL 0.1 MG TABLET PO PRN (19:33)
[2019-06-08] MEDS ORDERED: ACETAMINOPHEN 325 MG TABLET (FP) PO PRN ×2 (19:33)
[2019-06-08] MEDS ORDERED: BISMUTH SUBSALICYLATE 524 MG/30 ML UD PO PRN (19:33)
[2019-06-08] MEDS ORDERED: IBUPROFEN 400 MG TABLET (FP) PO PRN ×2 (19:33)
[2019-06-08] MEDS ORDERED: MENTHOL/PHENOL 1 EACH UD MM PRN (19:33)
[2019-06-08] MEDS ORDERED: METHOCARBAMOL 500 MG TABLET PO PRN (19:33)
[2019-06-08] MEDS ORDERED: MAG HYDROX/AL HYDROX/SIMETH 30 ML UNIT-DOSE CUP PO PRN (19:33)
[2019-06-08] MEDS ORDERED: chlordiazePOXIDE HCL 10 MG CAPSULE PO PRN (19:33)
[2019-06-08] MEDS ORDERED: METHADONE HCL 10 MG TABLET (FOR DETOX USE ONLY) PO ONE (19:33)
[2019-06-08] MEDS ORDERED: NICOTINE POLACRILEX 2 MG GUM BUC PRN (19:33)
[2019-06-08] MEDS ORDERED: MAGNESIUM CITRATE 300 ML BOTTLE PO PRN (19:33)
[2019-06-08] MEDS ORDERED: MAGNESIUM HYDROX 2400MG/30ML ORAL SUSPENSION 30 ML CUP PO PRN (19:33)
[2019-06-08] MEDS ORDERED: NALOXONE HCL 0.4 MG/ML VIAL IM PRN (19:33)
[2019-06-08] MEDS ORDERED: MELATONIN 5 MG TABLETS PO PRN (19:33)
[2019-06-08 19:43] VITALS: BMI 25.1
[2019-06-08] MEDS: TOLNAFTATE 1% CREAM 15 GM TUBE TP SCH (22:39)
[2019-06-08] MEDS: BACITRACIN 0.9 GM PACKET TP SCH (22:39)
[2019-06-08] MEDS: chlordiazePOXIDE HCL 25 MG CAPSULE PO SCH (22:39)
[2019-06-08] MEDS: THIAMINE HCL 100 MG TABLET (FP) PO SCH (22:39)
[2019-06-09] MEDS: chlordiazePOXIDE HCL 25 MG CAPSULE PO SCH ×3 (06:28→23:06)
[2019-06-09] MEDS ORDERED: METHADONE (DETOX) 20 MG, METHADONE (DETOX) 5 MG PO ONE (10:00)
[2019-06-09] MEDS ORDERED: METHADONE HCL 10 MG TABLET (FOR DETOX USE ONLY) ONE (10:11)
[2019-06-09] MEDS ORDERED: METHADONE HCL 5 MG TABLET (FOR DETOX USE ONLY) ONE (10:11)
[2019-06-09] MEDS: NICOTINE 21 MG/24 HOURS TOPICAL PATCH TD SCH (11:04)
[2019-06-09] MEDS: PRENATAL VITAMINS W/ FOLIC ACID TABLET (FP) PO SCH (11:06)
--- NOTE | 2019-06-09 11:06 | PN ---
[facility] CIWA - CIWA Score Nausea/Vomitin Muscle Tremors: 2 Anxiety: 2 Agitation: 2 Paroxysmal Sweats: 1-Minimal Palms Moist Orientation: 0-Oriented Tacttile Disturbances: 1-Very Mild Itch/Numbness Auditory Disturbances: 0-None Visual Disturbances: 0-None Headache: 2-Mild CIWA-Ar Total Score: 12 [facility] COWS - Scale Resting Pulse: 1= [place] 81-100 Sweatin= Chills/Flushing Restless Observation: 1= Difficult to Sit Still Pupil Size: 1= Pupils >than Normal Bone or Joint Aches: 2= Severe Diffuse Aches Runny Nose/ Eye Tearin= Runny Nose/Eyes GI Upset > 30mins: 2= Nausea/Diarrhea Tremor Observation of Outstretched Hands: 2= Slight Tremor Visible Yawning Observation: 1= 1-2x During Session Anxiety or Irritability: 2=Irritable/Anxious Goose Flesh Skin: 0=Smooth Skin COWS Score: 15 S Progress Note (SOAP) Subjective: alert,irritable,anxious,interrupted sleep,tremor ,pain in the body and back Objective: 06/09/19 11:04 Vital Signs Temperature 97.9 F 06/09/19 09:30 Pulse Rate 87 06/09/19 09:30 Respiratory Rate 18 06/09/19 09:30 Blood Pressure 115/62 06/09/19 09:30 O2 Sat by Pulse Oximetry (%) Assessment: 06/09/19 11:04 withdrawal signs and symptom labs pending Plan: continue detox methadone and librium regimen
[2019-06-09] MEDS: BACITRACIN 0.9 GM PACKET TP SCH ×4 (11:08→23:06)
[2019-06-09] MEDS: TOLNAFTATE 1% CREAM 15 GM TUBE TP SCH ×2 (11:08→23:06)
[2019-06-09] MEDS: THIAMINE HCL 100 MG TABLET (FP) PO SCH (23:06)
[2019-06-10] LABS: PH,URINE 5.5 (5.0-8.0); URINE APPEARANCE CLEAR; URINE BILIRUBIN NEGATIVE (NEGATIVE); URINE COLOR YELLOW; URINE GLUCOSE (UA) NEGATIVE (NEGATIVE); URINE KETONE NEGATIVE (NEGATIVE); URINE LEUK ESTERASE NEGATIVE (NEGATIVE); URINE NITRITE NEGATIVE (NEGATIVE); URINE PROTEIN NEGATIVE (NEGATIVE); URINE UROBILINOGEN 0.2 mg/dL (0.2-1.0)
[2019-06-10] MEDS: chlordiazePOXIDE 5 MG CAPSULE PO SCH ×3 (07:19→22:51)
[2019-06-10] MEDS ORDERED: METHADONE HCL 10 MG TABLET (FOR DETOX USE ONLY) PO ONE (10:00)
[2019-06-10] MEDS: NICOTINE 21 MG/24 HOURS TOPICAL PATCH TD SCH (10:11)
[2019-06-10] MEDS: PRENATAL VITAMINS W/ FOLIC ACID TABLET (FP) PO SCH (10:12)
[2019-06-10] MEDS: TOLNAFTATE 1% CREAM 15 GM TUBE TP SCH ×2 (10:13→22:51)
[2019-06-10] MEDS: BACITRACIN 0.9 GM PACKET TP SCH ×4 (10:39→22:51)
--- NOTE | 2019-06-10 15:40 | PN ---
S CIWA - CIWA Score Nausea/Vomitin Muscle Tremors: 3 Anxiety: 5 Agitation: 2 Paroxysmal Sweats: 2 Orientation: 0-Oriented Tacttile Disturbances: 0-None Auditory Disturbances: 1-Very Mild Visual Disturbances: 2-Mild Sensitivity Headache: 0-None Present CIWA-Ar Total Score: 17 [facility] COWS - Scale Resting Pulse: 0= [place] 80 or Below Sweatin= Chills/Flushing Restless Observation: 0= Sits Still Pupil Size: 0= Normal to Room Light Bone or Joint Aches: 2= Severe Diffuse Aches Runny Nose/ Eye Tearin= None GI Upset > 30mins: 0= None Tremor Observation of Outstretched Hands: 2= Slight Tremor Visible Yawning Observation: 1= 1-2x During Session Anxiety or Irritability: 2=Irritable/Anxious Goose Flesh Skin: 3=Piloerection COWS Score: 11 S Progress Note (SOAP) Subjective: Anxious, Tremors, Body Aches, Sweating. Objective: PATIENT A & O X 3. IN NO ACUTE DISTRESS. 06/10/19 15:37 Vital Signs Temperature 98.1 F 06/10/19 13:26 Pulse Rate 80 06/10/19 13:26 Respiratory Rate 18 06/10/19 13:26 Blood Pressure 124/79 06/10/19 13:26 O2 Sat by Pulse Oximetry (%) Laboratory Tests 06/09/19 20:30 Urine Color Yellow Urine Appearance Clear Urine pH 5.5 Ur Specific [place] 1.023 Urine Protein Negative Urine Glucose (UA) Negative Urine Ketones Negative Urine Blood Negative Urine Nitrite Negative Urine Bilirubin Negative Urine Urobilinogen 0.2 Ur Leukocyte Esterase Negative DETOX ADMISSION UA RESULTS NOTED. CLINIC CLERK NOTED THAT UNABLE TO OBTAIN BLOOD SAMPLES FOR DETOX ADMISSION LABS TODAY. 06/10/19 15:38 Assessment: 06/10/19 15:39 WITHDRAWAL SYMPTOMS. 06/10/19 15:39 Plan: CONTINUE DETOX.
[2019-06-10] MEDS: THIAMINE HCL 100 MG TABLET (FP) PO SCH (22:52)
[2019-06-11] MEDS ORDERED: chlordiazePOXIDE HCL 10 MG CAPSULE PO PRN
[2019-06-11] MEDS: chlordiazePOXIDE HCL 10 MG CAPSULE PO SCH ×3 (05:30→23:00)
[2019-06-11] MEDS ORDERED: METHADONE HCL 5 MG TABLET (FOR DETOX USE ONLY) ONE (08:32)
[2019-06-11] MEDS ORDERED: METHADONE HCL 10 MG TABLET (FOR DETOX USE ONLY) ONE (08:32)
[2019-06-11] MEDS: PRENATAL VITAMINS W/ FOLIC ACID TABLET (FP) PO SCH (09:26)
[2019-06-11] MEDS ORDERED: METHADONE (DETOX) 10 MG, METHADONE (DETOX) 5 MG PO ONE (10:00)
[2019-06-11] MEDS: BACITRACIN 0.9 GM PACKET TP SCH ×3 (11:06→23:00)
[2019-06-11] MEDS: TOLNAFTATE 1% CREAM 15 GM TUBE TP SCH ×2 (11:07→23:00)
[2019-06-11] MEDS: NICOTINE 21 MG/24 HOURS TOPICAL PATCH TD SCH (11:07)
--- NOTE | 2019-06-11 16:17 | PN ---
[facility] CIWA - CIWA Score Nausea/Vomitin-No Nausea/No Vomiting Muscle Tremors: 2 Anxiety: 3 Agitation: 3 Paroxysmal Sweats: No Perspiration Orientation: 0-Oriented Tacttile Disturbances: 1-Very Mild Itch/Numbness Auditory Disturbances: 0-None Visual Disturbances: 2-Mild Sensitivity Headache: 0-None Present CIWA-Ar Total Score: 11 S COWS - Scale Resting Pulse: 0= OK 80 or Below Sweatin= No chills or Flushing Restless Observation: 1= Difficult to Sit Still Pupil Size: 0= Normal to Room Light Bone or Joint Aches: 2= Severe Diffuse Aches Runny Nose/ Eye Tearin= None GI Upset > 30mins: 0= None Tremor Observation of Outstretched Hands: 2= Slight Tremor Visible Yawning Observation: 1= 1-2x During Session Anxiety or Irritability: 2=Irritable/Anxious Goose Flesh Skin: 3=Piloerection COWS Score: 11 [facility] Progress Note (SOAP) Subjective: Anxious, Tremors, Body Aches. Objective: PATIENT A & O X 3, OBSERVED AMBULATING ON UNIT UNASSISTED. IN NO ACUTE DISTRESS. 06/11/19 16:14 Vital Signs Temperature 97.7 F 06/11/19 13:49 Pulse Rate 77 06/11/19 13:49 Respiratory Rate 20 06/11/19 13:49 Blood Pressure 132/80 06/11/19 13:49 O2 Sat by Pulse Oximetry (%) Laboratory Tests 06/09/19 20:30 Urine Color Yellow Urine Appearance Clear Urine pH 5.5 Ur Specific [place] 1.023 Urine Protein Negative Urine Glucose (UA) Negative Urine Ketones Negative Urine Blood Negative Urine Nitrite Negative Urine Bilirubin Negative Urine Urobilinogen 0.2 Ur Leukocyte Esterase Negative DIRECTOR SYSTEMS UNABLE TO OBTAIN BLOOD SAMPLE FOR DETOX ADMISSION LAB ANALYSIS. DETOX ADMISSION LAB RESULTS FROM 03/27/2019 NOTED. 06/11/19 16:15 Assessment: 06/11/19 16:17 WITHDRAWAL SYMPTOMS. Plan: CONTINUE DETOX. ENSURE PO FOR CALORIC SUPPLEMENTATION.
[2019-06-11] MEDS: THIAMINE HCL 100 MG TABLET (FP) PO SCH (23:00)
[2019-06-12] MEDS ORDERED: chlordiazePOXIDE HCL 10 MG CAPSULE PO ONE (05:00)
[2019-06-12] MEDS ORDERED: METHADONE HCL 10 MG TABLET (FOR DETOX USE ONLY) PO ONE (10:00)
--- NOTE | 2019-06-12 10:02 | DS ---
[facility] Detox Discharge Summary Admission Date: 06/08/19 Discharge Date: 06/12/19 - History Present History: Alcohol Dependence, Cocaine Dependence, Opioid Dependence Additional Comments: Patient did well in detox and has no withdrawal symptoms now and wants to be transferred to rehab now. Pertinent Past History: 49 years old presents w/ heroin and alcohol withdrawal and seeking detox. Patient states was in [facility] for one day for detox on 06/02 and states did not fill a prescription. Last rehab @ [facility] 03/16/19 to 03/29/19 Utox: positive for JUNO/OPI/FEN/BZO Heroin use began at age 40. States current use is 7-10 bags daily x years. Last used this am. Hx 13 overdoses. Last 1.5 yrs ago. Has a Narcan kit @ home. Denies seizures or blackouts. Cocaine/Crack use began at age 19. States last used 06/07/19 Alcohol use since age 23. State currently drinks 3 - 1/2 pints 3x/wk. Last drink 06/07/19. Nicotine use began at age 6. Smokes 1 PPD. Benzo - denies use. PMHx: Hepatitis B; 02/2019 EKG @ [facility]. MHHx: Sadness. Denies thoughts of harming self or others. SHx: Homeless. Unemployed. Longest sobriety 2 years in 2003. - Physical Exam Results Vital Signs: Vital Signs Temperature 97.8 F 06/12/19 09:35 Pulse Rate 80 06/12/19 09:35 Respiratory Rate 18 06/12/19 09:35 Blood Pressure 131/85 06/12/19 09:35 O2 Sat by Pulse Oximetry (%) Pertinent Admission Physical Exam Findings: Patient admitted 06/10/19 for opioid detox. See admission physical. No new findings. - Treatment Hospital Course: Detox Protocol Followed, Detoxed Safely, Responded well, Rehab Referral Accepted Patient has Accepted a Rehab Referral to: will be transferred to rehab bed in 3N - Medication Discharge Medications: Ambulatory Orders NK [No Known Home Medication] 03/16/19 - Diagnosis (1) Opioid dependence with withdrawal Current Visit: Yes Status: Acute (2) Cocaine dependence Current Visit: Yes Status: Chronic Qualifiers: Substance use status: uncomplicated Qualified Code(s): F14.20 - Cocaine dependence, uncomplicated (3) Nicotine dependence Current Visit: Yes Status: Chronic Qualifiers: Nicotine product type: cigarettes Substance use status: uncomplicated Qualified Code(s): F17.210 - Nicotine dependence, cigarettes, uncomplicated (4) COPD (chronic obstructive pulmonary disease) Current Visit: No Status: Chronic Qualifiers: COPD type: emphysema Emphysema type: unspecified Qualified Code(s): J43.9 - Emphysema, unspecified - AMA Did Patient Leave Against Medical Advice: No
[2019-06-12] MEDS: BACITRACIN 0.9 GM PACKET TP SCH ×4 (10:09→21:55)
[2019-06-12] MEDS: PRENATAL VITAMINS W/ FOLIC ACID TABLET (FP) PO SCH (10:09)
[2019-06-12] MEDS: NICOTINE 21 MG/24 HOURS TOPICAL PATCH TD SCH (10:10)
[2019-06-12] MEDS: TOLNAFTATE 1% CREAM 15 GM TUBE TP SCH ×2 (10:11→21:55)
[2019-06-12] MEDS: THIAMINE HCL 100 MG TABLET (FP) PO SCH (21:57)
[2019-06-13] MEDS ORDERED: METHADONE HCL 5 MG TABLET (FOR DETOX USE ONLY) PO ONE (06:00)
[2019-06-13] MEDS: NICOTINE 21 MG/24 HOURS TOPICAL PATCH TD SCH (10:11)
[2019-06-13] MEDS: PRENATAL VITAMINS W/ FOLIC ACID TABLET (FP) PO SCH (10:11)
[2019-06-13] MEDS: BACITRACIN 0.9 GM PACKET TP SCH ×4 (10:11→22:24)
[2019-06-13] MEDS: TOLNAFTATE 1% CREAM 15 GM TUBE TP SCH ×2 (10:12→22:24)
[2019-06-13] MEDS: THIAMINE HCL 100 MG TABLET (FP) PO SCH (22:24)
[2019-06-14] MEDS: NICOTINE 21 MG/24 HOURS TOPICAL PATCH TD SCH (11:13)
[2019-06-14] MEDS: TOLNAFTATE 1% CREAM 15 GM TUBE TP SCH ×2 (11:13→22:47)
[2019-06-14] MEDS: BACITRACIN 0.9 GM PACKET TP SCH ×4 (11:13→22:47)
[2019-06-14] MEDS: PRENATAL VITAMINS W/ FOLIC ACID TABLET (FP) PO SCH (11:14)
[2019-06-14] MEDS: THIAMINE HCL 100 MG TABLET (FP) PO SCH (22:47)
[2019-06-15] MEDS: TOLNAFTATE 1% CREAM 15 GM TUBE TP SCH ×2 (10:57→22:02)
[2019-06-15] MEDS: PRENATAL VITAMINS W/ FOLIC ACID TABLET (FP) PO SCH (10:57)
[2019-06-15] MEDS: NICOTINE 21 MG/24 HOURS TOPICAL PATCH TD SCH (10:58)
[2019-06-15] MEDS: BACITRACIN 0.9 GM PACKET TP SCH ×4 (10:58→22:02)
[2019-06-15] MEDS: THIAMINE HCL 100 MG TABLET (FP) PO SCH (22:02)
[2019-06-16] MEDS: PRENATAL VITAMINS W/ FOLIC ACID TABLET (FP) PO SCH (11:11)
[2019-06-16] MEDS: TOLNAFTATE 1% CREAM 15 GM TUBE TP SCH ×2 (11:11→21:56)
[2019-06-16] MEDS: BACITRACIN 0.9 GM PACKET TP SCH ×4 (11:12→23:09)
[2019-06-16] MEDS: NICOTINE 21 MG/24 HOURS TOPICAL PATCH TD SCH (11:12)
[2019-06-16] MEDS: THIAMINE HCL 100 MG TABLET (FP) PO SCH (21:56)
[2019-06-17] MEDS: TOLNAFTATE 1% CREAM 15 GM TUBE TP SCH ×2 (10:30→22:19)
[2019-06-17] MEDS: PRENATAL VITAMINS W/ FOLIC ACID TABLET (FP) PO SCH (10:30)
[2019-06-17] MEDS: BACITRACIN 0.9 GM PACKET TP SCH ×3 (10:30→21:53)
[2019-06-17] MEDS: NICOTINE 21 MG/24 HOURS TOPICAL PATCH TD SCH (10:31)
[2019-06-17] MEDS: THIAMINE HCL 100 MG TABLET (FP) PO SCH (21:53)
[2019-06-18] MEDS: NICOTINE 21 MG/24 HOURS TOPICAL PATCH TD SCH (10:56)
[2019-06-18] MEDS: PRENATAL VITAMINS W/ FOLIC ACID TABLET (FP) PO SCH (10:56)
[2019-06-18] MEDS: BACITRACIN 0.9 GM PACKET TP SCH ×4 (10:56→21:49)
[2019-06-18] MEDS: TOLNAFTATE 1% CREAM 15 GM TUBE TP SCH ×2 (10:57→21:49)
[2019-06-18] MEDS: THIAMINE HCL 100 MG TABLET (FP) PO SCH (21:49)
[2019-06-19] MEDS: PRENATAL VITAMINS W/ FOLIC ACID TABLET (FP) PO SCH (10:53)
[2019-06-19] MEDS: TOLNAFTATE 1% CREAM 15 GM TUBE TP SCH ×2 (10:53→23:11)
[2019-06-19] MEDS: NICOTINE 21 MG/24 HOURS TOPICAL PATCH TD SCH (10:53)
[2019-06-19] MEDS: BACITRACIN 0.9 GM PACKET TP SCH ×4 (10:53→23:11)
[2019-06-19] MEDS: THIAMINE HCL 100 MG TABLET (FP) PO SCH (23:12)
[2019-06-20] MEDS: PRENATAL VITAMINS W/ FOLIC ACID TABLET (FP) PO SCH (10:17)
[2019-06-20] MEDS: NICOTINE 21 MG/24 HOURS TOPICAL PATCH TD SCH (10:18)
[2019-06-20] MEDS: BACITRACIN 0.9 GM PACKET TP SCH ×3 (10:18→23:34)
[2019-06-20] MEDS: TOLNAFTATE 1% CREAM 15 GM TUBE TP SCH ×2 (10:18→23:34)
[2019-06-20] MEDS: THIAMINE HCL 100 MG TABLET (FP) PO SCH (23:34)
[2019-06-21] MEDS: PRENATAL VITAMINS W/ FOLIC ACID TABLET (FP) PO SCH (10:15)
[2019-06-21] MEDS: NICOTINE 21 MG/24 HOURS TOPICAL PATCH TD SCH (10:15)
[2019-06-21] MEDS: BACITRACIN 0.9 GM PACKET TP SCH ×4 (10:15→21:44)
[2019-06-21] MEDS: TOLNAFTATE 1% CREAM 15 GM TUBE TP SCH ×2 (10:16→21:44)
[2019-06-21] MEDS: THIAMINE HCL 100 MG TABLET (FP) PO SCH (21:44)
[2019-06-22] MEDS: PRENATAL VITAMINS W/ FOLIC ACID TABLET (FP) PO SCH (10:19)
[2019-06-22] MEDS: TOLNAFTATE 1% CREAM 15 GM TUBE TP SCH ×2 (10:19→21:57)
[2019-06-22] MEDS: BACITRACIN 0.9 GM PACKET TP SCH ×4 (10:19→21:57)
[2019-06-22] MEDS: NICOTINE 21 MG/24 HOURS TOPICAL PATCH TD SCH (10:19)
--- NOTE | 2019-06-22 11:43 | PN ---
S Progress Note Note: Patient seen for c/o rectal soreness due to hx of polyps. Patient states polyps become irritated with bowel movements and wiping. Reports small amount of bleeding with wiping. Denies symptoms are hemorrhoid related. Laboratory Tests 06/09/19 20:30 Urine Color Yellow Urine Appearance Clear Urine pH 5.5 Ur Specific [place] 1.023 Urine Protein Negative Urine Glucose (UA) Negative Urine Ketones Negative Urine Blood Negative Urine Nitrite Negative Urine Bilirubin Negative Urine Urobilinogen 0.2 Ur Leukocyte Esterase Negative Vital Signs (72 hours) 06/20/19 06/20/19 06/20/19 00:30 03:30 07:23 Temperature 97.6 F Pulse Rate 94 H Respiratory 18 18 18 Rate Blood Pressure 113/83 06/21/19 06/21/19 06/21/19 00:30 03:30 07:34 Temperature 97.8 F Pulse Rate 83 Respiratory 18 18 18 Rate Blood Pressure 113/67 06/22/19 06/22/19 03:30 07:44 Temperature 96.2 F L Pulse Rate 83 Respiratory 18 18 Rate Blood Pressure 116/76 Ros : negative N/V/D, constipation PE: alert and oriented x 3 skin warm and dry +perrla, eoms intact bl rectal exam- refused ext full rom, amb ad [place] A/P: hx of rectal polyps will order tucks pads encourage oral fuids monitor clinically
[2019-06-22] MEDS: WITCH HAZEL 50% (TUCKS) 40 PAD/JAR PAD TP SCH (11:55)
[2019-06-22] MEDS: THIAMINE HCL 100 MG TABLET (FP) PO SCH (21:54)
[2019-06-23] MEDS: PRENATAL VITAMINS W/ FOLIC ACID TABLET (FP) PO SCH (10:26)
[2019-06-23] MEDS: BACITRACIN 0.9 GM PACKET TP SCH ×4 (10:27→22:06)
[2019-06-23] MEDS: TOLNAFTATE 1% CREAM 15 GM TUBE TP SCH ×2 (10:27→22:05)
[2019-06-23] MEDS: NICOTINE 21 MG/24 HOURS TOPICAL PATCH TD SCH (10:27)
[2019-06-23] MEDS: WITCH HAZEL 50% (TUCKS) 40 PAD/JAR PAD TP SCH (11:00)
[2019-06-23] MEDS: THIAMINE HCL 100 MG TABLET (FP) PO SCH (22:05)
[2019-06-24] MEDS: WITCH HAZEL 50% (TUCKS) 40 PAD/JAR PAD TP SCH (10:42)
[2019-06-24] MEDS: NICOTINE 21 MG/24 HOURS TOPICAL PATCH TD SCH (10:42)
[2019-06-24] MEDS: PRENATAL VITAMINS W/ FOLIC ACID TABLET (FP) PO SCH (10:42)
[2019-06-24] MEDS: BACITRACIN 0.9 GM PACKET TP SCH ×4 (10:42→21:52)
[2019-06-24] MEDS: TOLNAFTATE 1% CREAM 15 GM TUBE TP SCH ×2 (10:42→21:52)
[2019-06-24] MEDS: THIAMINE HCL 100 MG TABLET (FP) PO SCH (21:52)
[2019-06-25] MEDS: BACITRACIN 0.9 GM PACKET TP SCH ×4 (10:40→21:46)
[2019-06-25] MEDS: WITCH HAZEL 50% (TUCKS) 40 PAD/JAR PAD TP SCH (10:40)
[2019-06-25] MEDS: PRENATAL VITAMINS W/ FOLIC ACID TABLET (FP) PO SCH (10:40)
[2019-06-25] MEDS: TOLNAFTATE 1% CREAM 15 GM TUBE TP SCH ×3 (10:40→21:47)
[2019-06-25] MEDS: NICOTINE 21 MG/24 HOURS TOPICAL PATCH TD SCH (10:40)
[2019-06-25] MEDS: THIAMINE HCL 100 MG TABLET (FP) PO SCH (21:47)
[2019-06-26] MEDS: PRENATAL VITAMINS W/ FOLIC ACID TABLET (FP) PO SCH (10:56)
[2019-06-26] MEDS: BACITRACIN 0.9 GM PACKET TP SCH ×4 (11:01→21:48)
[2019-06-26] MEDS: NICOTINE 21 MG/24 HOURS TOPICAL PATCH TD SCH (11:01)
[2019-06-26] MEDS: WITCH HAZEL 50% (TUCKS) 40 PAD/JAR PAD TP SCH (11:01)
[2019-06-26] MEDS: TOLNAFTATE 1% CREAM 15 GM TUBE TP SCH ×2 (11:01→21:48)
[2019-06-26] MEDS: THIAMINE HCL 100 MG TABLET (FP) PO SCH (21:48)
[2019-06-27] MEDS: BACITRACIN 0.9 GM PACKET TP SCH ×4 (10:24→21:55)
[2019-06-27] MEDS: PRENATAL VITAMINS W/ FOLIC ACID TABLET (FP) PO SCH (10:24)
[2019-06-27] MEDS: NICOTINE 21 MG/24 HOURS TOPICAL PATCH TD SCH (10:24)
[2019-06-27] MEDS: TOLNAFTATE 1% CREAM 15 GM TUBE TP SCH ×2 (10:24→21:55)
[2019-06-27] MEDS: WITCH HAZEL 50% (TUCKS) 40 PAD/JAR PAD TP SCH (10:24)
--- NOTE | 2019-06-27 11:38 | PN ---
DANIEL Progress Note Note: called to evaluate patient stated has abscess of abdominal wall right lower abdomen history of multiple abdominal surgery perforated colon ,repair of repair of abdominal hernia had swelling with pain and tenderness in right lower abdomen abdomen surgical scar in the midline abscess of right lower abdomen with pain and tenderness impression abscess of abdominal wall right lower history of heroin dependence history of alcohol dependence history of crack dependence treatment to er at [facility] for evaluation and treatment,spoke with Dr tapia
--- NOTE | 2019-06-27 19:48 | PN ---
Mert Progress Note Note: patient is medically clear to return from er at [facility] to return to rehab for continuation of care, had cat scan of abdomen and pelvis done Vital Signs Temperature 98.0 F 06/27/19 19:45 Pulse Rate 81 06/27/19 19:45 Respiratory Rate 18 06/27/19 19:45 Blood Pressure 127/81 06/27/19 19:45 O2 Sat by Pulse Oximetry (%) close monitoring
[2019-06-27] MEDS: THIAMINE HCL 100 MG TABLET (FP) PO SCH (21:55)
[2019-06-28] MEDS: BACITRACIN 0.9 GM PACKET TP SCH ×4 (10:28→21:44)
[2019-06-28] MEDS: NICOTINE 21 MG/24 HOURS TOPICAL PATCH TD SCH (10:28)
[2019-06-28] MEDS: WITCH HAZEL 50% (TUCKS) 40 PAD/JAR PAD TP SCH (10:28)
[2019-06-28] MEDS: PRENATAL VITAMINS W/ FOLIC ACID TABLET (FP) PO SCH (10:28)
[2019-06-28] MEDS: TOLNAFTATE 1% CREAM 15 GM TUBE TP SCH ×2 (10:28→21:44)
[2019-06-28] MEDS: THIAMINE HCL 100 MG TABLET (FP) PO SCH (21:44)
[2019-06-29 07:20] VITALS: BP 100/65; PULSE 80; TEMP 97.8
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
== END 2019-06-29 10:15 | disposition home or self-care (01) | DRG 895 ==
LOC: YASAS 13:36 → Y6N 19:50 → Y5N 06-12 13:19
PROVIDERS: ADMIT Surgery; ATTEND Neuromusculoskeletal Medicine & OMM
PROC: HZ42ZZZ Group Counseling for Substance Abuse Treatment, Cognitive-Behavioral (ICD-10-PCS; principal; 2019-06-08)
PROC: HZ2ZZZZ Detoxification Services for Substance Abuse Treatment (ICD-10-PCS; 2019-06-08)
DX: F10.20 Alcohol dependence, uncomplicated (principal); F11.20 Opioid dependence, uncomplicated; F14.20 Cocaine dependence, uncomplicated; B19.10 Unspecified viral hepatitis B without hepatic coma; L02.211 Cutaneous abscess of abdominal wall; F17.210 Nicotine dependence, cigarettes, uncomplicated; F43.9 Reaction to severe stress, unspecified; H55.00 Unspecified nystagmus; B35.3 Tinea pedis; K62.89 Other specified diseases of anus and rectum; Z87.19 Personal history of other diseases of the digestive system; Z93.3 Colostomy status; Z59.0 Homelessness
CPT/HCPCS: 81003

== ENCOUNTER 2019-06-27 12:42 | Emergency (ER) | payer SELFPAY ==
[2019-06-27 12:55] VITALS: BP 112/73; PULSE 76; TEMP 97.6; BMI 29.1
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
[2019-06-27] MEDS ORDERED: ACETAMINOPHEN 1000 MG/100 ML VIAL (NON FORMULARY) IVPB ONE (13:42)
[2019-06-27] MEDS ORDERED: SODIUM CHLORIDE 1,000 ML IV STA (13:42)
[2019-06-27 13:55] LABS: BASO % 0.6 % (0-2.0); EOS % 3.5 % (0-4.5); HEMATOCRIT 39.6 % (35.4-49); HEMOGLOBIN 13.4 GM/dL (11.7-16.9); LYMPH % 34.3 % (8-40); MCH 29.6 pg (25.7-33.7); MCHC 33.9 g/dl (32.0-35.9); MEAN CELL VOLUME 87.4 fl (80-96); MEAN PLT VOLUME 8.1 fl (7.5-11.1); MONO % 7.5 % (3.8-10.2); NEUT % 54.1 % (42.8-82.8); PLATELET COUNT 222 K/MM3 (134-434); RBC 4.53 M/mm3 (4.00-5.60); RDW 14.1 % (11.9-15.9)
[2019-06-27 14:25] LABS: INR 0.85 (0.83-1.09)
[2019-06-27 14:30] LABS: ALBUMIN 3.9 g/dl (3.4-5.0); ALK PHOS 97 U/L (45-117); ANION GAP 4 MMOL/L (8-16); BILIRUBIN,TOTAL 0.3 mg/dL (0.2-1); CALCIUM 9.7 mg/dL (8.5-10.1); CHLORIDE 107 mmol/L (98-107); CO2 28 mmol/L (21-32); CREATININE 1.1 mg/dL (0.55-1.3); GLUCOSE,RANDOM 83 mg/dL (74-106); LIPASE 174 U/L (73-393); POTASSIUM 4.4 mmol/L (3.5-5.1); SGOT/AST 18 U/L (15-37); SGPT/ALT 33 U/L (13-61); SODIUM 139 mmol/L (136-145); TOT PROT 6.8 g/dl (6.4-8.2)
[2019-06-27 15:20] LABS: URINE APPEARANCE Clear; URINE BILIRUBIN Negative (NEGATIVE); URINE COLOR Yellow; URINE GLUCOSE (UA) Negative (NEGATIVE); URINE KETONE Negative (NEGATIVE); URINE LEUK ESTERASE Negative (NEGATIVE); URINE NITRITE Negative (NEGATIVE); URINE PROTEIN Negative (NEGATIVE); URINE UROBILINOGEN 0.2 mg/dL (0.2-1.0)
[2019-06-27 15:46] LABS: ACETONE SERUM NEGATIVE (NEGATIVE)
== END 2019-06-27 20:13 | disposition other institution (70) ==
LOC: JER 12:42
PROC: 3E0337Z Introduction of Electrolytic and Water Balance Substance into Peripheral Vein, Percutaneous Approach (ICD-10-PCS; principal; 2019-06-27)
PROC: 3E033NZ Introduction of Analgesics, Hypnotics, Sedatives into Peripheral Vein, Percutaneous Approach (ICD-10-PCS; 2019-06-27)
DX: R10.31 Right lower quadrant pain (principal); B19.10 Unspecified viral hepatitis B without hepatic coma; J44.9 Chronic obstructive pulmonary disease, unspecified; F30.9 Manic episode, unspecified; F10.10 Alcohol abuse, uncomplicated; F11.10 Opioid abuse, uncomplicated; F14.10 Cocaine abuse, uncomplicated; F17.210 Nicotine dependence, cigarettes, uncomplicated; Z88.0 Allergy status to penicillin; Z91.013 Allergy to seafood; Z90.49 Acquired absence of other specified parts of digestive tract
CPT/HCPCS: 36415; 74177-TC; 80053; 80307; 81003; 82009; 83605; 83690; 85025; 85610; 87040; 87086; 96361; 96374; 99282-25; J0131; J7030

== ENCOUNTER 2019-08-01 10:28 | Inpatient (IN) | payer OTHER ==
[2019-08-01 11:45] VITALS: BMI 28.2
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
[2019-08-01] MEDS ORDERED: MAGNESIUM HYDROX 2400MG/30ML ORAL SUSPENSION 30 ML CUP PO PRN (12:48)
[2019-08-01] MEDS ORDERED: MAG HYDROX/AL HYDROX/SIMETH 30 ML UNIT-DOSE CUP PO PRN (12:48)
[2019-08-01] MEDS ORDERED: IBUPROFEN 400 MG TABLET (FP) PO PRN (12:48)
[2019-08-01] MEDS ORDERED: MELATONIN 5 MG TABLETS PO PRN (12:48)
[2019-08-01] MEDS ORDERED: METHOCARBAMOL 500 MG TABLET PO PRN (12:48)
[2019-08-01] MEDS ORDERED: cloNIDine HCL 0.1 MG TABLET PO PRN (12:48)
[2019-08-01] MEDS ORDERED: chlordiazePOXIDE HCL 25 MG CAPSULE PO PRN (12:48)
[2019-08-01] MEDS ORDERED: ACETAMINOPHEN 325 MG TABLET (FP) PO PRN (12:48)
[2019-08-01] MEDS ORDERED: MENTHOL/PHENOL 1 EACH UD MM PRN (12:48)
[2019-08-01] MEDS ORDERED: METHADONE HCL 10 MG TABLET (FOR DETOX USE ONLY) PO ONE (12:48)
[2019-08-01] MEDS ORDERED: BISMUTH SUBSALICYLATE 524 MG/30 ML UD PO PRN (12:48)
[2019-08-01] MEDS ORDERED: NICOTINE POLACRILEX 2 MG GUM BUC PRN (12:48)
[2019-08-01] MEDS ORDERED: MAGNESIUM CITRATE 300 ML BOTTLE PO PRN (12:48)
[2019-08-01] MEDS ORDERED: chlordiazePOXIDE HCL 25 MG CAPSULE PO ONE (13:00)
[2019-08-01] MEDS: NICOTINE 21 MG/24 HOURS TOPICAL PATCH TD SCH (14:22)
[2019-08-01] MEDS: chlordiazePOXIDE HCL 25 MG CAPSULE PO SCH ×2 (17:20→22:48)
[2019-08-01] MEDS: THIAMINE HCL 100 MG TABLET (FP) PO SCH (22:48)
[2019-08-02] MEDS: chlordiazePOXIDE HCL 25 MG CAPSULE PO SCH ×4 (07:23→23:00)
[2019-08-02] MEDS ORDERED: METHADONE HCL 5 MG TABLET (FOR DETOX USE ONLY) ONE (09:50)
[2019-08-02] MEDS ORDERED: METHADONE HCL 10 MG TABLET (FOR DETOX USE ONLY) ONE (09:50)
[2019-08-02] MEDS ORDERED: METHADONE (DETOX) 20 MG, METHADONE (DETOX) 5 MG PO ONE (10:00)
[2019-08-02] MEDS: NICOTINE 21 MG/24 HOURS TOPICAL PATCH TD SCH (11:30)
[2019-08-02] MEDS ORDERED: FLU VACCINE QUAD 60 MCG/0.5 ML (MDV 19-20) IM ONE (12:00)
[2019-08-02] MEDS: PRENATAL VITAMINS W/ FOLIC ACID TABLET (FP) PO SCH (14:30)
--- NOTE | 2019-08-02 16:33 | PN ---
[facility] CIWA - CIWA Score Nausea/Vomitin-Mild Nausea/No Vomiting Muscle Tremors: 3 Anxiety: 3 Agitation: 3 Paroxysmal Sweats: 3 Orientation: 0-Oriented Tacttile Disturbances: 0-None Auditory Disturbances: 0-None Visual Disturbances: 0-None Headache: 0-None Present CIWA-Ar Total Score: 13 [facility] COWS - Scale Resting Pulse: 1= [place] 81-100 Sweatin=Flushed/Facial Moisture Restless Observation: 0= Sits Still Pupil Size: 0= Normal to Room Light Bone or Joint Aches: 1= Mild Discomfort Runny Nose/ Eye Tearin= Nasal Congestion GI Upset > 30mins: 0= None Tremor Observation of Outstretched Hands: 2= Slight Tremor Visible Yawning Observation: 1= 1-2x During Session Anxiety or Irritability: 0= None Goose Flesh Skin: 0=Smooth Skin COWS Score: 8 [facility] Progress Note (SOAP) Subjective: tremors sweats sleep disturbance diarrhea Assessment: 08/02/19 16:34 in bed, a & O x 3 restless anxious Vital Signs Temperature 97.7 F 08/02/19 09:19 Pulse Rate 86 08/02/19 09:19 Respiratory Rate 18 08/02/19 09:19 Blood Pressure 137/89 08/02/19 09:19 O2 Sat by Pulse Oximetry (%) labs pending withdrawal sx Plan: continue detox monitor lab results
[2019-08-02] MEDS: THIAMINE HCL 100 MG TABLET (FP) PO SCH (23:00)
[2019-08-03] MEDS: chlordiazePOXIDE HCL 25 MG CAPSULE PO SCH ×4 (06:52→22:36)
[2019-08-03] MEDS ORDERED: METHADONE HCL 10 MG TABLET (FOR DETOX USE ONLY) PO ONE (10:00)
[2019-08-03] MEDS: PRENATAL VITAMINS W/ FOLIC ACID TABLET (FP) PO SCH (10:31)
[2019-08-03] MEDS: NICOTINE 21 MG/24 HOURS TOPICAL PATCH TD SCH (10:31)
[2019-08-03 11:21] LABS: ALBUMIN 3.1 g/dl (3.4-5.0); BILIRUBIN,TOTAL 0.3 mg/dL (0.2-1); BLOOD UREA NITROGEN 18.5 mg/dL (7-18); CALCIUM 9.2 mg/dL (8.5-10.1); POTASSIUM 4.2 mmol/L (3.5-5.1); TOT PROT 6.1 g/dl (6.4-8.2)
[2019-08-03 11:30] LABS: HEMATOCRIT 39.3 % (35.4-49); HEMOGLOBIN 13.2 GM/dL (11.7-16.9); MCH 29.2 pg (25.7-33.7); MCHC 33.6 g/dl (32.0-35.9); MEAN CELL VOLUME 86.8 fl (80-96); MEAN PLT VOLUME 8.2 fl (7.5-11.1); PLATELET COUNT 231 K/MM3 (134-434); RBC 4.52 M/mm3 (4.00-5.60); RDW 14.2 % (11.9-15.9); WHITE BLOOD COUNT 6.6 K/mm3 (4.0-10.0)
--- NOTE | 2019-08-03 15:36 | PN ---
S CIWA - CIWA Score Nausea/Vomitin-No Nausea/No Vomiting Muscle Tremors: 2 Anxiety: 3 Agitation: 0-Normal Activity Paroxysmal Sweats: 2 Orientation: 0-Oriented Tacttile Disturbances: 0-None Auditory Disturbances: 2-Mild Harshness/Frighten Visual Disturbances: 2-Mild Sensitivity Headache: 0-None Present CIWA-Ar Total Score: 11 [facility] COWS - Scale Resting Pulse: 1= [place] 81-100 Sweatin= No chills or Flushing Restless Observation: 0= Sits Still Pupil Size: 0= Normal to Room Light Bone or Joint Aches: 0= None Runny Nose/ Eye Tearin= None GI Upset > 30mins: 0= None Tremor Observation of Outstretched Hands: 2= Slight Tremor Visible Yawning Observation: 1= 1-2x During Session Anxiety or Irritability: 2=Irritable/Anxious Goose Flesh Skin: 3=Piloerection COWS Score: 9 [facility] Progress Note (SOAP) Subjective: Sweating, Tremors, Anxious. Objective: PATIENT A & O X 3. IN NO ACUTE DISTRESS. 08/03/19 15:41 Vital Signs Temperature 97.7 F 08/03/19 09:10 Pulse Rate 99 H 08/03/19 09:10 Respiratory Rate 18 08/03/19 09:10 Blood Pressure 128/79 08/03/19 09:10 O2 Sat by Pulse Oximetry (%) Laboratory Tests 08/03/19 08/03/19 08/03/19 07:45 07:45 07:45 WBC 6.6 RBC 4.52 Hgb 13.2 Hct 39.3 MCV 86.8 MCH 29.2 MCHC 33.6 RDW 14.2 Plt Count 231 MPV 8.2 Sodium 138 Potassium 4.2 Chloride 104 Carbon Dioxide 28 Anion Gap 7 L BUN 18.5 H Creatinine 1.0 Est GFR (CKD-EPI)AfAm 100.55 Est GFR (CKD-EPI)NonAf 86.76 Random Glucose 96 Calcium 9.2 Total Bilirubin 0.3 AST 23 ALT 37 Alkaline Phosphatase 78 Total Protein 6.1 L Albumin 3.1 L RPR Titer Nonreactive LABS NOTED. Assessment: 08/03/19 15:42 WITHDRAWAL SYMPTOMS. Plan: CONTINUE DETOX. INCREASE DAILY PO WATER INTAKE.
[2019-08-03] MEDS: THIAMINE HCL 100 MG TABLET (FP) PO SCH (22:34)
[2019-08-04] MEDS ORDERED: chlordiazePOXIDE HCL 10 MG CAPSULE PO PRN
[2019-08-04] MEDS: chlordiazePOXIDE HCL 10 MG CAPSULE PO SCH ×4 (06:35→23:14)
[2019-08-04] MEDS ORDERED: METHADONE HCL 10 MG TABLET (FOR DETOX USE ONLY) ONE (08:56)
[2019-08-04] MEDS ORDERED: METHADONE HCL 5 MG TABLET (FOR DETOX USE ONLY) ONE (08:56)
[2019-08-04] MEDS ORDERED: METHADONE (DETOX) 10 MG, METHADONE (DETOX) 5 MG PO ONE (10:00)
[2019-08-04] MEDS: PRENATAL VITAMINS W/ FOLIC ACID TABLET (FP) PO SCH (10:14)
[2019-08-04] MEDS: NICOTINE 21 MG/24 HOURS TOPICAL PATCH TD SCH (10:14)
--- NOTE | 2019-08-04 13:36 | PN ---
[facility] CIWA - CIWA Score Nausea/Vomitin-No Nausea/No Vomiting Muscle Tremors: 2 Anxiety: 1-Mildly Anxious Agitation: 2 Paroxysmal Sweats: 2 Orientation: 0-Oriented Tacttile Disturbances: 0-None Auditory Disturbances: 0-None Visual Disturbances: 0-None Headache: 0-None Present CIWA-Ar Total Score: 7 S COWS - Scale Resting Pulse: 0= [place] 80 or Below Sweatin= Chills/Flushing Restless Observation: 1= Difficult to Sit Still Pupil Size: 0= Normal to Room Light Bone or Joint Aches: 2= Severe Diffuse Aches Runny Nose/ Eye Tearin= Nasal Congestion GI Upset > 30mins: 1= Stomach Cramp Tremor Observation of Outstretched Hands: 1= Tremor [place], Not Seen Yawning Observation: 1= 1-2x During Session Anxiety or Irritability: 2=Irritable/Anxious Goose Flesh Skin: 0=Smooth Skin COWS Score: 10 [facility] Progress Note (SOAP) Subjective: poor appetite sweats shakes interrupted sleep body aches chills Objective: 08/04/19 13:35 Vital Signs Temperature 97.7 F 08/04/19 09:08 Pulse Rate 73 08/04/19 09:08 Respiratory Rate 18 08/04/19 09:08 Blood Pressure 142/63 08/04/19 09:08 O2 Sat by Pulse Oximetry (%) aaox3 ambulating no acute distress Assessment: 08/04/19 13:36 withdrawals Plan: continue detox increase fluids ensure bid clonidine 0.1mg bid with parameters
[2019-08-04] MEDS: cloNIDine HCL 0.1 MG TABLET PO SCH (23:14)
[2019-08-04] MEDS: THIAMINE HCL 100 MG TABLET (FP) PO SCH (23:14)
[2019-08-05] MEDS: chlordiazePOXIDE HCL 10 MG CAPSULE PO SCH ×2 (06:44→18:15)
[2019-08-05] MEDS ORDERED: METHADONE HCL 10 MG TABLET (FOR DETOX USE ONLY) PO ONE (10:00)
[2019-08-05] MEDS: PRENATAL VITAMINS W/ FOLIC ACID TABLET (FP) PO SCH (12:07)
[2019-08-05] MEDS: cloNIDine HCL 0.1 MG TABLET PO SCH ×2 (12:08→23:47)
[2019-08-05] MEDS: NICOTINE 21 MG/24 HOURS TOPICAL PATCH TD SCH (12:10)
--- NOTE | 2019-08-05 13:48 | PN ---
[facility] CIWA - CIWA Score Nausea/Vomitin-No Nausea/No Vomiting Muscle Tremors: 2 Anxiety: 1-Mildly Anxious Agitation: 1-Slight > Activity Paroxysmal Sweats: 1-Minimal Palms Moist Orientation: 0-Oriented Tacttile Disturbances: 0-None Auditory Disturbances: 0-None Visual Disturbances: 0-None Headache: 0-None Present CIWA-Ar Total Score: 5 [facility] COWS - Scale Resting Pulse: 0= [place] 80 or Below Sweatin= Chills/Flushing Restless Observation: 1= Difficult to Sit Still Pupil Size: 0= Normal to Room Light Bone or Joint Aches: 1= Mild Discomfort Runny Nose/ Eye Tearin= Nasal Congestion GI Upset > 30mins: 0= None Tremor Observation of Outstretched Hands: 1= Tremor [place], Not Seen Yawning Observation: 1= 1-2x During Session Anxiety or Irritability: 1=Feels Anxious/Irritable Goose Flesh Skin: 0=Smooth Skin COWS Score: 7 [facility] Progress Note (SOAP) Subjective: sweats shakes body aches Objective: 08/05/19 13:48 Vital Signs Temperature 97.4 F L 08/05/19 13:10 Pulse Rate 77 08/05/19 13:10 Respiratory Rate 18 08/05/19 13:10 Blood Pressure 120/91 08/05/19 13:10 O2 Sat by Pulse Oximetry (%) aaox3 ambulating no acute distress Assessment: 08/05/19 13:48 withdrawals Plan: continue detox increase fluids d/c in am
[2019-08-05 21:17] VITALS: BP 111/79; PULSE 79; TEMP 97.7
[2019-08-05] MEDS: THIAMINE HCL 100 MG TABLET (FP) PO SCH (23:48)
[2019-08-06] MEDS ORDERED: chlordiazePOXIDE HCL 10 MG CAPSULE PO ONE (05:00)
[2019-08-06] MEDS ORDERED: METHADONE HCL 5 MG TABLET (FOR DETOX USE ONLY) PO ONE (06:00)
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
== END 2019-08-06 08:38 | disposition home or self-care (01) | DRG 897 ==
LOC: YASAS 10:28 → Y6N 12:54
PROVIDERS: ADMIT Allergy & Immunology; ATTEND Allergy & Immunology
PROC: HZ2ZZZZ Detoxification Services for Substance Abuse Treatment (ICD-10-PCS; principal; 2019-08-01)
DX: F11.23 Opioid dependence with withdrawal (principal); F10.230 Alcohol dependence with withdrawal, uncomplicated; F14.20 Cocaine dependence, uncomplicated; F19.280 Other psychoactive substance dependence with psychoactive substance-induced anxiety disorder; F19.282 Other psychoactive substance dependence with psychoactive substance-induced sleep disorder; F19.24 Other psychoactive substance dependence with psychoactive substance-induced mood disorder; F20.0 Paranoid schizophrenia; B19.10 Unspecified viral hepatitis B without hepatic coma; F17.210 Nicotine dependence, cigarettes, uncomplicated; J43.9 Emphysema, unspecified; B35.3 Tinea pedis; Z87.828 Personal history of other (healed) physical injury and trauma; Z88.0 Allergy status to penicillin; Z91.013 Allergy to seafood
CPT/HCPCS: 36415; 80053; 85027; 86593; J0735

== ENCOUNTER 2019-10-17 09:24 | Inpatient (IN) | payer OTHER ==
[2019-10-17 09:39] VITALS: BMI 27.9
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
[2019-10-17] MEDS ORDERED: ACETAMINOPHEN 325 MG TABLET (FP) PO PRN ×2 (10:27)
[2019-10-17] MEDS ORDERED: hydrOXYzine PAMOATE 25 MG CAPSULE (FP) PO PRN (10:27)
[2019-10-17] MEDS ORDERED: chlordiazePOXIDE HCL 25 MG CAPSULE PO PRN (10:27)
[2019-10-17] MEDS ORDERED: NICOTINE POLACRILEX 2 MG GUM BUC PRN (10:27)
[2019-10-17] MEDS ORDERED: MAG HYDROX/AL HYDROX/SIMETH 30 ML UNIT-DOSE CUP PO PRN (10:27)
[2019-10-17] MEDS ORDERED: MENTHOL/PHENOL 1 EACH UD MM PRN (10:27)
[2019-10-17] MEDS ORDERED: METHOCARBAMOL 500 MG TABLET PO PRN (10:27)
[2019-10-17] MEDS ORDERED: MAGNESIUM CITRATE 300 ML BOTTLE PO PRN (10:27)
[2019-10-17] MEDS ORDERED: MAGNESIUM HYDROX 2400MG/30ML ORAL SUSPENSION 30 ML CUP PO PRN (10:27)
[2019-10-17] MEDS ORDERED: IBUPROFEN 400 MG TABLET (FP) PO PRN (10:27)
[2019-10-17] MEDS ORDERED: BISMUTH SUBSALICYLATE 524 MG/30 ML UD PO PRN (10:27)
[2019-10-17] MEDS: chlordiazePOXIDE HCL 25 MG CAPSULE PO SCH ×3 (11:23→23:07)
[2019-10-17] MEDS: NICOTINE 21 MG/24 HOURS TOPICAL PATCH TD SCH (11:31)
[2019-10-17] MEDS ORDERED: PNEUMOC 13-VAL CONJ-DIP CRM/PF 0.5 ML DISP.SYRIN IM ONE (12:00)
[2019-10-17] MEDS ORDERED: PNEUMOCOCCAL 23 VACCINE 0.5 ML VIAL IM ONE (12:00)
[2019-10-17] MEDS: THIAMINE HCL 100 MG TABLET (FP) PO SCH (23:08)
[2019-10-18] MEDS: chlordiazePOXIDE HCL 25 MG CAPSULE PO SCH ×4 (07:35→23:51)
--- NOTE | 2019-10-18 09:57 | CONSULT ---
[facility] Psychiatric Consult - Data Date of interview: 10/18/19 Admission source: [facility] Identifying data: [employer] Administrator approached patient for psychiatric consultation. Patient refused to be seen. Stated, " I don't need to see you. I'm fine. " Psychiatric consultation refused.
[2019-10-18 10:37] LABS: HEMATOCRIT 42.3 % (35.4-49); HEMOGLOBIN 13.8 GM/dL (11.7-16.9); MCH 28.7 pg (25.7-33.7); MCHC 32.6 g/dl (32.0-35.9); MEAN CELL VOLUME 87.9 fl (80-96); MEAN PLT VOLUME 8.9 fl (7.5-11.1); PLATELET COUNT 199 K/MM3 (134-434); RBC 4.81 M/mm3 (4.00-5.60); RDW 14.7 % (11.9-15.9); WHITE BLOOD COUNT 7.3 K/mm3 (4.0-10.0)
[2019-10-18] MEDS: NICOTINE 21 MG/24 HOURS TOPICAL PATCH TD SCH (10:43)
[2019-10-18] MEDS: PRENATAL VITAMINS W/ FOLIC ACID TABLET (FP) PO SCH (10:43)
[2019-10-18 10:56] LABS: ALBUMIN 3.6 g/dl (3.4-5.0); BILIRUBIN,TOTAL 0.3 mg/dL (0.2-1); BLOOD UREA NITROGEN 22.7 mg/dL (7-18); CALCIUM 9.8 mg/dL (8.5-10.1); CREATININE 1.1 mg/dL (0.55-1.3); POTASSIUM 4.4 mmol/L (3.5-5.1); TOT PROT 6.3 g/dl (6.4-8.2)
--- NOTE | 2019-10-18 11:31 | PN ---
[facility] CIWA - CIWA Score Nausea/Vomitin-No Nausea/No Vomiting Muscle Tremors: None Anxiety: 3 Agitation: 0-Normal Activity Paroxysmal Sweats: 3 Orientation: 0-Oriented Tacttile Disturbances: 1-Very Mild Itch/Numbness Auditory Disturbances: 0-None Visual Disturbances: 0-None Headache: 2-Mild CIWA-Ar Total Score: 9 S Progress Note (SOAP) Subjective: c/o headache, sweats, anxiety, and muscle aches. Objective: 10/18/19 11:29 Vital Signs 10/18/19 10/18/19 10/18/19 03:30 05:56 09:54 Temperature 97.7 F 96 F L Pulse Rate 67 96 H Respiratory 18 18 18 Rate Blood Pressure 115/70 121/76 Laboratory Last Values WBC 7.3 K/mm3 (4.0-10.0) 10/18/19 07:35 RBC 4.81 M/mm3 (4.00-5.60) 10/18/19 07:35 Hgb 13.8 GM/dL (11.7-16.9) 10/18/19 07:35 Hct 42.3 % (35.4-49) 10/18/19 07:35 MCV 87.9 fl (80-96) 10/18/19 07:35 MCH 28.7 pg (25.7-33.7) 10/18/19 07:35 MCHC 32.6 g/dl (32.0-35.9) 10/18/19 07:35 RDW 14.7 % (11.9-15.9) 10/18/19 07:35 Plt Count 199 K/MM3 (134-434) 10/18/19 07:35 MPV 8.9 fl (7.5-11.1) 10/18/19 07:35 Sodium 142 mmol/L (136-145) 10/18/19 07:35 Potassium 4.4 mmol/L (3.5-5.1) 10/18/19 07:35 Chloride 113 mmol/L (98-107) H 10/18/19 07:35 Carbon Dioxide 23 mmol/L (21-32) 10/18/19 07:35 Anion Gap 6 MMOL/L (8-16) L 10/18/19 07:35 BUN 22.7 mg/dL (7-18) H 10/18/19 07:35 Creatinine 1.1 mg/dL (0.55-1.3) 10/18/19 07:35 Est GFR (CKD-EPI)AfAm 89.61 10/18/19 07:35 Est GFR (CKD-EPI)NonAf 77.32 10/18/19 07:35 Random Glucose 91 mg/dL (74-106) 10/18/19 07:35 Calcium 9.8 mg/dL (8.5-10.1) 10/18/19 07:35 Total Bilirubin 0.3 mg/dL (0.2-1) 10/18/19 07:35 AST 14 U/L (15-37) L 10/18/19 07:35 ALT 18 U/L (13-61) 10/18/19 07:35 Alkaline Phosphatase 101 U/L (45-117) 10/18/19 07:35 Total Protein 6.3 g/dl (6.4-8.2) L 10/18/19 07:35 Albumin 3.6 g/dl (3.4-5.0) 10/18/19 07:35 Labs noted. Assessment: 10/18/19 11:30 AOX3, in no acute respiratory distress. Full ROM, ambulating in the unit. Withdrawal symptoms Plan: continue detox.
[2019-10-18] MEDS ORDERED: FLU VACCINE QUAD 60 MCG/0.5 ML (MDV 19-20) IM ONE (12:00)
[2019-10-18] MEDS: METHYL SALICYLATE/MENTHOL OINT 30 GM TUBE TP SCH (14:56)
[2019-10-18] MEDS: THIAMINE HCL 100 MG TABLET (FP) PO SCH (23:52)
[2019-10-19] MEDS: chlordiazePOXIDE HCL 25 MG CAPSULE PO SCH ×4 (06:03→23:39)
[2019-10-19] MEDS: PRENATAL VITAMINS W/ FOLIC ACID TABLET (FP) PO SCH (10:18)
[2019-10-19] MEDS: NICOTINE 21 MG/24 HOURS TOPICAL PATCH TD SCH (10:19)
[2019-10-19] MEDS: METHYL SALICYLATE/MENTHOL OINT 30 GM TUBE TP SCH (10:19)
--- NOTE | 2019-10-19 11:25 | PN ---
[facility] CIWA - CIWA Score Nausea/Vomitin-Mild Nausea/No Vomiting Muscle Tremors: 1-None Visible, but [place] Anxiety: 2 Agitation: 2 Paroxysmal Sweats: No Perspiration Orientation: 0-Oriented Tacttile Disturbances: 1-Very Mild Itch/Numbness Auditory Disturbances: 0-None Visual Disturbances: 0-None Headache: 1-Very Mild CIWA-Ar Total Score: 8 BHS Progress Note (SOAP) Subjective: alert,irritable,anxious,interrupted sleep Objective: 10/19/19 11:24 Vital Signs Temperature 98.9 F 10/19/19 09:15 Pulse Rate 81 10/19/19 09:15 Respiratory Rate 20 10/19/19 09:15 Blood Pressure 135/75 10/19/19 09:15 O2 Sat by Pulse Oximetry (%) Assessment: 10/19/19 11:24 withdrawal symptom Plan: continue detox librium regimen
[2019-10-19] MEDS: THIAMINE HCL 100 MG TABLET (FP) PO SCH (22:33)
[2019-10-20] MEDS ORDERED: chlordiazePOXIDE HCL 10 MG CAPSULE PO PRN
[2019-10-20] MEDS: chlordiazePOXIDE HCL 10 MG CAPSULE PO SCH ×4 (05:30→23:35)
--- NOTE | 2019-10-20 09:37 | PN ---
[facility] CIWA - CIWA Score Nausea/Vomitin-No Nausea/No Vomiting Muscle Tremors: None Anxiety: 3 Agitation: 0-Normal Activity Paroxysmal Sweats: 3 Orientation: 0-Oriented Tacttile Disturbances: 0-None Auditory Disturbances: 0-None Visual Disturbances: 0-None Headache: 1-Very Mild CIWA-Ar Total Score: 7 S Progress Note (SOAP) Subjective: c/o mild headache, sweats, anxiety, and interrupted sleep. Objective: 10/20/19 09:36 Vital Signs 10/20/19 10/20/19 03:30 09:22 Temperature 97.5 F L Pulse Rate 97 H Respiratory 18 18 Rate Blood Pressure 131/95 Laboratory Last Values WBC 7.3 K/mm3 (4.0-10.0) 10/18/19 07:35 RBC 4.81 M/mm3 (4.00-5.60) 10/18/19 07:35 Hgb 13.8 GM/dL (11.7-16.9) 10/18/19 07:35 Hct 42.3 % (35.4-49) 10/18/19 07:35 MCV 87.9 fl (80-96) 10/18/19 07:35 MCH 28.7 pg (25.7-33.7) 10/18/19 07:35 MCHC 32.6 g/dl (32.0-35.9) 10/18/19 07:35 RDW 14.7 % (11.9-15.9) 10/18/19 07:35 Plt Count 199 K/MM3 (134-434) 10/18/19 07:35 MPV 8.9 fl (7.5-11.1) 10/18/19 07:35 Sodium 142 mmol/L (136-145) 10/18/19 07:35 Potassium 4.4 mmol/L (3.5-5.1) 10/18/19 07:35 Chloride 113 mmol/L (98-107) H 10/18/19 07:35 Carbon Dioxide 23 mmol/L (21-32) 10/18/19 07:35 Anion Gap 6 MMOL/L (8-16) L 10/18/19 07:35 BUN 22.7 mg/dL (7-18) H 10/18/19 07:35 Creatinine 1.1 mg/dL (0.55-1.3) 10/18/19 07:35 Est GFR (CKD-EPI)AfAm 89.61 10/18/19 07:35 Est GFR (CKD-EPI)NonAf 77.32 10/18/19 07:35 Random Glucose 91 mg/dL (74-106) 10/18/19 07:35 Calcium 9.8 mg/dL (8.5-10.1) 10/18/19 07:35 Total Bilirubin 0.3 mg/dL (0.2-1) 10/18/19 07:35 AST 14 U/L (15-37) L 10/18/19 07:35 ALT 18 U/L (13-61) 10/18/19 07:35 Alkaline Phosphatase 101 U/L (45-117) 10/18/19 07:35 Total Protein 6.3 g/dl (6.4-8.2) L 10/18/19 07:35 Albumin 3.6 g/dl (3.4-5.0) 10/18/19 07:35 RPR Titer Nonreactive (NONREACTIVE) 10/18/19 07:35 HIV 1&2 Antibody Screen Negative 10/18/19 07:35 HIV P24 Antigen Negative 10/18/19 07:35 Labs noted. Assessment: 10/20/19 09:37 AOX3, in no acute respiratory distress. Full ROM, ambulating in the unit. Withdrawal symptoms. Plan: continue detox.
[2019-10-20] MEDS: METHYL SALICYLATE/MENTHOL OINT 30 GM TUBE TP SCH (10:17)
[2019-10-20] MEDS: NICOTINE 21 MG/24 HOURS TOPICAL PATCH TD SCH (10:17)
[2019-10-20] MEDS: PRENATAL VITAMINS W/ FOLIC ACID TABLET (FP) PO SCH (10:17)
[2019-10-20 15:47] LABS: URINE APPEARANCE CLEAR; URINE BILIRUBIN NEGATIVE (NEGATIVE); URINE COLOR YELLOW; URINE GLUCOSE (UA) NEGATIVE (NEGATIVE); URINE KETONE NEGATIVE (NEGATIVE); URINE LEUK ESTERASE NEGATIVE (NEGATIVE); URINE NITRITE NEGATIVE (NEGATIVE); URINE PROTEIN NEGATIVE (NEGATIVE); URINE UROBILINOGEN 0.2 mg/dL (0.2-1.0)
[2019-10-20] MEDS: THIAMINE HCL 100 MG TABLET (FP) PO SCH (23:35)
[2019-10-21] MEDS ORDERED: chlordiazePOXIDE HCL 10 MG CAPSULE PO SCH (05:00)
[2019-10-21] MEDS: METHYL SALICYLATE/MENTHOL OINT 30 GM TUBE TP SCH (10:05)
[2019-10-21] MEDS: NICOTINE 21 MG/24 HOURS TOPICAL PATCH TD SCH (10:05)
[2019-10-21] MEDS: PRENATAL VITAMINS W/ FOLIC ACID TABLET (FP) PO SCH (10:05)
--- NOTE | 2019-10-21 10:53 | PN ---
S CIWA - CIWA Score Nausea/Vomitin-No Nausea/No Vomiting Muscle Tremors: 2 Anxiety: 1-Mildly Anxious Agitation: 0-Normal Activity Paroxysmal Sweats: No Perspiration Orientation: 0-Oriented Tacttile Disturbances: 0-None Auditory Disturbances: 0-None Visual Disturbances: 0-None Headache: 0-None Present CIWA-Ar Total Score: 3 BHS Progress Note (SOAP) Subjective: restless Objective: 10/21/19 10:47 Vital Signs Temperature 97.0 F L 10/21/19 09:16 Pulse Rate 68 10/21/19 09:16 Respiratory Rate 18 10/21/19 09:16 Blood Pressure 122/77 10/21/19 09:16 O2 Sat by Pulse Oximetry (%) aaox3 ambulating no acute distress Assessment: 10/21/19 10:53 mild/no withdrawals Plan: continue detox d/c in am
--- NOTE | 2019-10-21 15:22 | PN ---
[facility] Progress Note Note: Patient admitted to [facility]. Problem list, home medications, orders, labs, past admissions reviewed. Patient refused psychiatric evaluation 06/10/17 and . No incidents of violent behavior. Continue to monitor, maintain safety, continue substance use rehab. Vital Signs - 24 hr 10/20/19 10/20/19 10/21/19 18:39 21:30 00:30 Temperature 97.3 F L Pulse Rate 85 74 Respiratory 18 18 18 Rate Blood Pressure 126/78 108/68 10/21/19 10/21/19 10/21/19 03:30 06:15 09:16 Temperature 97.7 F 97.0 F L Pulse Rate 65 68 Respiratory 18 18 18 Rate Blood Pressure 105/63 122/77 10/21/19 10/21/19 13:18 13:54 Temperature 98.6 F 97.5 F L Pulse Rate 75 81 Respiratory 18 18 Rate Blood Pressure 129/77 122/76
[2019-10-21] MEDS: THIAMINE HCL 100 MG TABLET (FP) PO SCH (21:47)
[2019-10-22] MEDS ORDERED: chlordiazePOXIDE HCL 10 MG CAPSULE PO ONE (05:00)
[2019-10-22] MEDS: METHYL SALICYLATE/MENTHOL OINT 30 GM TUBE TP SCH (10:01)
[2019-10-22] MEDS: PRENATAL VITAMINS W/ FOLIC ACID TABLET (FP) PO SCH (10:01)
[2019-10-22] MEDS: NICOTINE 21 MG/24 HOURS TOPICAL PATCH TD SCH (10:01)
[2019-10-22] MEDS: MELATONIN 5 MG TABLETS PO PRN (21:35)
[2019-10-22] MEDS: THIAMINE HCL 100 MG TABLET (FP) PO SCH (21:35)
[2019-10-23] MEDS: PRENATAL VITAMINS W/ FOLIC ACID TABLET (FP) PO SCH (10:08)
[2019-10-23] MEDS: NICOTINE 21 MG/24 HOURS TOPICAL PATCH TD SCH (10:09)
[2019-10-23] MEDS: METHYL SALICYLATE/MENTHOL OINT 30 GM TUBE TP SCH (10:09)
[2019-10-23] MEDS: THIAMINE HCL 100 MG TABLET (FP) PO SCH (21:31)
[2019-10-24] MEDS: PRENATAL VITAMINS W/ FOLIC ACID TABLET (FP) PO SCH (10:02)
[2019-10-24] MEDS: METHYL SALICYLATE/MENTHOL OINT 30 GM TUBE TP SCH (10:02)
[2019-10-24] MEDS: NICOTINE 21 MG/24 HOURS TOPICAL PATCH TD SCH (10:02)
[2019-10-24] MEDS: THIAMINE HCL 100 MG TABLET (FP) PO SCH (21:34)
[2019-10-25] MEDS: PRENATAL VITAMINS W/ FOLIC ACID TABLET (FP) PO SCH (09:47)
[2019-10-25] MEDS: METHYL SALICYLATE/MENTHOL OINT 30 GM TUBE TP SCH (09:47)
[2019-10-25] MEDS: NICOTINE 21 MG/24 HOURS TOPICAL PATCH TD SCH (09:48)
[2019-10-25] MEDS: MELATONIN 5 MG TABLETS PO PRN (21:21)
[2019-10-25] MEDS: THIAMINE HCL 100 MG TABLET (FP) PO SCH (21:21)
[2019-10-26] MEDS: PRENATAL VITAMINS W/ FOLIC ACID TABLET (FP) PO SCH (09:58)
[2019-10-26] MEDS: METHYL SALICYLATE/MENTHOL OINT 30 GM TUBE TP SCH (09:59)
[2019-10-26] MEDS: NICOTINE 21 MG/24 HOURS TOPICAL PATCH TD SCH (09:59)
[2019-10-26] MEDS: THIAMINE HCL 100 MG TABLET (FP) PO SCH (22:07)
[2019-10-27] MEDS: PRENATAL VITAMINS W/ FOLIC ACID TABLET (FP) PO SCH (10:03)
[2019-10-27] MEDS: NICOTINE 21 MG/24 HOURS TOPICAL PATCH TD SCH (10:04)
[2019-10-27] MEDS: METHYL SALICYLATE/MENTHOL OINT 30 GM TUBE TP SCH (10:04)
--- NOTE | 2019-10-27 13:36 | PN ---
[facility] Progress Note Note: Pt states he has anal itching at night. Would like to get Preparation H. Says vaseline did not help. Says he is had this itching for about a month but did not seek medical care. Says he has had multiple intestinal surgeries due to initially stool impaction from heroin use. Says he is scheduled for another revision surgery at [facility]. Vital Signs - 24 hr 10/27/19 10/27/19 03:30 06:55 Temperature 97.6 F Pulse Rate 77 Respiratory 18 18 Rate Blood Pressure 111/70 Laboratory Tests 10/18/19 10/18/19 10/18/19 07:35 07:35 07:35 WBC 7.3 RBC 4.81 Hgb 13.8 Hct 42.3 MCV 87.9 MCH 28.7 MCHC 32.6 RDW 14.7 Plt Count 199 MPV 8.9 Sodium 142 Potassium 4.4 Chloride 113 H Carbon Dioxide 23 Anion Gap 6 L BUN 22.7 H Creatinine 1.1 Est GFR (CKD-EPI)AfAm 89.61 Est GFR (CKD-EPI)NonAf 77.32 Random Glucose 91 Calcium 9.8 Total Bilirubin 0.3 AST 14 L ALT 18 Alkaline Phosphatase 101 Total Protein 6.3 L Albumin 3.6 Urine Color Urine Appearance Urine pH Ur Specific [place] Urine Protein Urine Glucose (UA) Urine Ketones Urine Blood Urine Nitrite Urine Bilirubin Urine Urobilinogen Ur Leukocyte Esterase RPR Titer HIV 1&2 Antibody Screen Negative HIV P24 Antigen Negative 10/18/19 10/20/19 07:35 11:40 WBC RBC Hgb Hct MCV MCH MCHC RDW Plt Count MPV Sodium Potassium Chloride Carbon Dioxide Anion Gap BUN Creatinine Est GFR (CKD-EPI)AfAm Est GFR (CKD-EPI)NonAf Random Glucose Calcium Total Bilirubin AST ALT Alkaline Phosphatase Total Protein Albumin Urine Color Yellow Urine Appearance Clear Urine pH 5.0 Ur Specific [place] 1.018 Urine Protein Negative Urine Glucose (UA) Negative Urine Ketones Negative Urine Blood Negative Urine Nitrite Negative Urine Bilirubin Negative Urine Urobilinogen 0.2 Ur Leukocyte Esterase Negative RPR Titer Nonreactive HIV 1&2 Antibody Screen HIV P24 Antigen a/p: rectal itching- pt to f/u with PCP for f/u and for stool parasite testing at discharge. anusol prn
[2019-10-27] MEDS: HYDROCORTISONE 2.5% TOPICAL CREAM 30 GM TUBE PR SCH (21:34)
[2019-10-27] MEDS: THIAMINE HCL 100 MG TABLET (FP) PO SCH (21:34)
[2019-10-28 06:57] VITALS: TEMP 97.7
[2019-10-28] MEDS: NICOTINE 21 MG/24 HOURS TOPICAL PATCH TD SCH (10:17)
[2019-10-28] MEDS: PRENATAL VITAMINS W/ FOLIC ACID TABLET (FP) PO SCH (10:17)
[2019-10-28] MEDS: METHYL SALICYLATE/MENTHOL OINT 30 GM TUBE TP SCH (10:17)
[2019-10-28] MEDS: THIAMINE HCL 100 MG TABLET (FP) PO SCH (22:11)
[2019-10-28] MEDS: HYDROCORTISONE 2.5% TOPICAL CREAM 30 GM TUBE PR SCH (22:11)
[2019-10-29 07:08] VITALS: BP 123/76; PULSE 83
--- NOTE | 2019-10-29 08:29 | DS ---
[facility] Rehab Discharge Summary - [facility] Rehab Discharge Summary Admission Date: 10/17/19 Discharge Date: 10/29/19 - History Present History: Alcohol dependence Pertinent Past History: Pt was admitted to Detox on 10/12. Pt completed rehab- here for 12 days. States he has to go today to take care of insurance- Medicare part B and different appointments for anticipated surgeries. Pt will f/u Dr. Martinez at [facility]. Pt states does not need any medications for d/c. Vital Signs - 24 hr 10/29/19 10/29/19 10/29/19 00:30 03:30 07:08 Temperature 97.7 F Pulse Rate 83 Respiratory 18 18 20 Rate Blood Pressure 123/76 Laboratory Tests 10/18/19 10/18/19 10/18/19 07:35 07:35 07:35 WBC 7.3 RBC 4.81 Hgb 13.8 Hct 42.3 MCV 87.9 MCH 28.7 MCHC 32.6 RDW 14.7 Plt Count 199 MPV 8.9 Sodium 142 Potassium 4.4 Chloride 113 H Carbon Dioxide 23 Anion Gap 6 L BUN 22.7 H Creatinine 1.1 Est GFR (CKD-EPI)AfAm 89.61 Est GFR (CKD-EPI)NonAf 77.32 Random Glucose 91 Calcium 9.8 Total Bilirubin 0.3 AST 14 L ALT 18 Alkaline Phosphatase 101 Total Protein 6.3 L Albumin 3.6 Urine Color Urine Appearance Urine pH Ur Specific [place] Urine Protein Urine Glucose (UA) Urine Ketones Urine Blood Urine Nitrite Urine Bilirubin Urine Urobilinogen Ur Leukocyte Esterase RPR Titer HIV 1&2 Antibody Screen Negative HIV P24 Antigen Negative 10/18/19 10/20/19 07:35 11:40 WBC RBC Hgb Hct MCV MCH MCHC RDW Plt Count MPV Sodium Potassium Chloride Carbon Dioxide Anion Gap BUN Creatinine Est GFR (CKD-EPI)AfAm Est GFR (CKD-EPI)NonAf Random Glucose Calcium Total Bilirubin AST ALT Alkaline Phosphatase Total Protein Albumin Urine Color Yellow Urine Appearance Clear Urine pH 5.0 Ur Specific [place] 1.018 Urine Protein Negative Urine Glucose (UA) Negative Urine Ketones Negative Urine Blood Negative Urine Nitrite Negative Urine Bilirubin Negative Urine Urobilinogen 0.2 Ur Leukocyte Esterase Negative RPR Titer Nonreactive HIV 1&2 Antibody Screen HIV P24 Antigen pt states need to f/u for different surgeries- of feet and abd and derm... pt will f/u with [facility] for AUD 11/14 - Discharge Physical Exam Vital Signs: Vital Signs Temperature 97.7 F 10/29/19 07:08 Pulse Rate 83 10/29/19 07:08 Respiratory Rate 10/29/19 07:08 Blood Pressure 123/76 10/29/19 07:08 O2 Sat by Pulse Oximetry (%) - Treatment Discharge Condition: Discharge condition good - Medication Discharge Medications: Ambulatory Orders NK [No Known Home Medication] 03/16/19 - Discharge Instructions Diet, activity, other medical instructions: Diet: Activity: Other medical instructions: - Follow-up Referral Minutes to complete discharge: 30 - AMA Did Patient Leave Against Medical Advice: No
== END 2019-10-29 08:36 | disposition home or self-care (01) | DRG 895 ==
LOC: YASAS 09:24 → Y6N 10:17 → Y3W 10-21 13:38
PROVIDERS: ADMIT Allergy & Immunology; ATTEND Allergy & Immunology
PROC: HZ2ZZZZ Detoxification Services for Substance Abuse Treatment (ICD-10-PCS; principal; 2019-10-17)
PROC: HZ42ZZZ Group Counseling for Substance Abuse Treatment, Cognitive-Behavioral (ICD-10-PCS; 2019-10-21)
DX: F10.230 Alcohol dependence with withdrawal, uncomplicated (principal); F20.0 Paranoid schizophrenia; B19.10 Unspecified viral hepatitis B without hepatic coma; F12.10 Cannabis abuse, uncomplicated; F17.210 Nicotine dependence, cigarettes, uncomplicated; J44.9 Chronic obstructive pulmonary disease, unspecified; L29.0 Pruritus ani; R00.0 Tachycardia, unspecified; Z88.8 Allergy status to other drugs, medicaments and biological substances; Z91.013 Allergy to seafood
CPT/HCPCS: 36415; 80053; 81003; 85027; 86593; 87389; 90732; G0008; G0009; Q2036